=== PATIENT | male | born 1960 | race African-American/Black ===

== ENCOUNTER 2017-07-07 13:01 | Inpatient (IN) | payer OTHER ==
[2017-07-07 14:24] VITALS: BMI 20.9
[2017-07-07] MEDS ORDERED: chlordiazePOXIDE HCL 25 MG CAPSULE PO PRN (16:00)
[2017-07-07] MEDS ORDERED: NICOTINE POLACRILEX 4 MG GUM BUC PRN (16:00)
[2017-07-07] MEDS ORDERED: MAG HYDROX/AL HYDROX/SIMETH 30 ML UNIT-DOSE CUP PO PRN (16:00)
[2017-07-07] MEDS ORDERED: MAGNESIUM HYDROX 2400MG/30ML ORAL SUSPENSION 30 ML CUP PO PRN (16:00)
[2017-07-07] MEDS ORDERED: ACETAMINOPHEN 325 MG TABLET (FP) PO PRN (16:00)
[2017-07-07] MEDS ORDERED: MAGNESIUM CITRATE 300 ML BOTTLE PO PRN (16:00)
[2017-07-07] MEDS ORDERED: MENTHOL/PHENOL 1 EACH UD MM PRN (16:00)
[2017-07-07] MEDS ORDERED: LOPERAMIDE HCL 2 MG CAPSULE PO PRN (16:00)
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
[2017-07-07] MEDS ORDERED: METHADONE HCL 10 MG TABLET (FOR DETOX USE ONLY) PO ONE ×2 (19:00→23:00)
[2017-07-07] MEDS ORDERED: chlordiazePOXIDE HCL 25 MG CAPSULE PO ONE (19:00)
[2017-07-07] MEDS: chlordiazePOXIDE HCL 25 MG CAPSULE PO SCH ×2 (19:27→22:36)
[2017-07-07] MEDS: THIAMINE HCL 100 MG TABLET (FP) PO SCH (22:36)
[2017-07-08] MEDS: chlordiazePOXIDE HCL 25 MG CAPSULE PO SCH ×4 (05:57→23:52)
[2017-07-08 09:46] LABS: HEMATOCRIT 41.8 % (35.4-49); HEMOGLOBIN 13.7 GM/dL (11.7-16.9); MCH 30.9 pg (25.7-33.7); MCHC 32.9 g/dl (32.0-35.9); MEAN PLT VOLUME 8.4 fl (7.5-11.1); PLATELET COUNT 266 K/MM3 (134-434); RBC 4.45 M/mm3 (4.00-5.60); RDW 13.6 % (11.9-15.9)
--- NOTE | 2017-07-08 09:52 | EKG ---
Test Reason : Blood Pressure : / mmHG Vent. Rate : 059 BPM Atrial Rate : 059 BPM P-R Int : 122 ms QRS Dur : 128 ms QT Int : 440 ms P-R-T Axes : 079 -09 000 degrees QTc Int : 435 ms SINUS BRADYCARDIA RIGHT BUNDLE BRANCH BLOCK ABNORMAL ECG NO PREVIOUS ECGS AVAILABLE Confirmed by PAOLO PAREDES MD ([id number]) on 07/08/2017 9:52:12 AM Referred By: Confirmed By:PAOLO PAREDES MD
[2017-07-08 09:54] LABS: ALBUMIN 3.3 g/dl (3.4-5.0); ALK PHOS 105 U/L (45-117); ANION GAP 6 (8-16); BILIRUBIN,TOTAL 0.3 mg/dL (0.2-1.0); BLOOD UREA NITROGEN 12 mg/dL (7-18); CALCIUM 7.9 mg/dL (8.5-10.1); CHLORIDE 109 mmol/L (98-107); CO2 27 mmol/L (21-32); CREATININE 0.9 mg/dL (0.7-1.3); GLUCOSE,RANDOM 121 mg/dL (74-106); POTASSIUM 4.2 mmol/L (3.5-5.1); SGOT/AST 27 U/L (15-37); SGPT/ALT 30 U/L (12-78); SODIUM 142 mmol/L (136-145); TOT PROT 6.8 g/dl (6.4-8.2)
[2017-07-08] MEDS ORDERED: METHADONE HCL 10 MG TABLET (FOR DETOX USE ONLY) PO SCH (10:00)
[2017-07-08] MEDS: PRENATAL VITAMINS W/ FOLIC ACID TABLET (FP) PO SCH (10:41)
[2017-07-08] MEDS: LIDOCAINE 5% TOPICAL PATCH TP SCH (10:41)
[2017-07-08] MEDS: NICOTINE 14 MG/24 HOURS TOPICAL PATCH TD SCH (10:41)
[2017-07-08] MEDS: P-EPHED 60MG/TRIPROLIDI 2.5MG TABLET PO PRN (10:59)
--- NOTE | 2017-07-08 12:22 | PN ---
[facility] CIWA - CIWA Score Nausea/Vomitin-No Nausea/No Vomiting Muscle Tremors: 2 Anxiety: 4-Mod. Anxious/Guarded Agitation: 3 Paroxysmal Sweats: 3 Orientation: 0-Oriented Tacttile Disturbances: 2-Mild Itch/Numbness/Burn Auditory Disturbances: 0-None Visual Disturbances: 3-Moderate Sensitivity Headache: 0-None Present CIWA-Ar Total Score: 17 S COWS - Scale Resting Pulse: 1= [place] 81-100 Sweatin= Chills/Flushing Restless Observation: 1= Difficult to Sit Still Pupil Size: 0= Normal to Room Light Bone or Joint Aches: 2= Severe Diffuse Aches Runny Nose/ Eye Tearin= None GI Upset > 30mins: 1= Stomach Cramp Tremor Observation of Outstretched Hands: 2= Slight Tremor Visible Yawning Observation: 1= 1-2x During Session Anxiety or Irritability: 2=Irritable/Anxious Goose Flesh Skin: 3=Piloerection COWS Score: 14 [facility] Progress Note (SOAP) Subjective: Body Aches, Anxious, Sweating. Objective: PT. A & O X 3, OBSERVED AMBULATING ON UNIT. NO ACUTE DISTRESS. 07/08/17 12:19 Vital Signs Temperature 97.4 F L 07/08/17 09:22 Pulse Rate 85 07/08/17 09:22 Respiratory Rate 20 07/08/17 09:22 Blood Pressure 107/72 07/08/17 09:22 O2 Sat by Pulse Oximetry (%) Laboratory Tests 07/08/17 07/08/17 07/08/17 06:05 06:05 06:05 WBC 6.0 RBC 4.45 Hgb 13.7 Hct 41.8 MCV 94.0 MCH 30.9 MCHC 32.9 RDW 13.6 Plt Count 266 MPV 8.4 Sodium 142 Potassium 4.2 Chloride 109 H Carbon Dioxide 27 Anion Gap 6 L BUN 12 Creatinine 0.9 Creat Clearance w eGFR > 60 Random Glucose 121 H Calcium 7.9 L Total Bilirubin 0.3 AST 27 ALT 30 Alkaline Phosphatase 105 Total Protein 6.8 Albumin 3.3 L RPR Titer Nonreactive LABS NOTED. UA, HIV AB RESULTS PENDING. 07/08/17 12:21 Assessment: 07/08/17 12:20 WITHDRAWAL SYMPTOMS. Plan: CONTINUE DETOX.
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
--- NOTE | 2017-07-08 15:48 | PN ---
[facility] Progress Note Note: Patient reports that he accidentally hit his head (forehead) against the wall near his bed while walking around in his room. Patient denies falling to floor after and he denies LOC after fall. Patient A & O X 3 and able to ambulate unassisted. No bruising, swelling, erythema, bleeding, or unusual discharge noted on patient's head. [facility] Fall Protocol # 1 Implemented. report given to Dr. Geoffrey MD at [facility]. patient to be taken via ambulance to [facility] for further medical evaluation and for CT Scan of head. Sajan Stallworth NP
[2017-07-08] MEDS: LIDOCAINE PATCH REMOVAL MC SCH (23:51)
[2017-07-08] MEDS: THIAMINE HCL 100 MG TABLET (FP) PO SCH (23:52)
[2017-07-09] MEDS: guaiFENesin/D-METHORPHAN HB 10 ML UNIT-DOSE CUPS PO PRN ×2 (00:33→14:35)
[2017-07-09] MEDS: ZIPRASIDONE 20 MG CAPSULE PO SCH ×2 (01:50→22:12)
[2017-07-09] MEDS: chlordiazePOXIDE HCL 25 MG CAPSULE PO SCH ×2 (06:44→10:53)
[2017-07-09] MEDS: LIDOCAINE 5% TOPICAL PATCH TP SCH (10:18)
[2017-07-09] MEDS: NICOTINE 14 MG/24 HOURS TOPICAL PATCH TD SCH (10:18)
[2017-07-09] MEDS: PRENATAL VITAMINS W/ FOLIC ACID TABLET (FP) PO SCH (10:18)
[2017-07-09] MEDS: METHADONE HCL 5 MG TABLET (FOR DETOX USE ONLY) PO SCH (10:18)
[2017-07-09] MEDS: P-EPHED 60MG/TRIPROLIDI 2.5MG TABLET PO PRN (10:20)
[2017-07-09] MEDS: IBUPROFEN 400 MG TABLET (FP) PO PRN ×2 (10:21→23:05)
[2017-07-09 10:23] LABS: URINE APPEARANCE CLEAR; URINE BILIRUBIN NEGATIVE (NEGATIVE); URINE BLOOD NEGATIVE (NEGATIVE); URINE COLOR YELLOW; URINE GLUCOSE (UA) NEGATIVE (NEGATIVE); URINE KETONE NEGATIVE (NEGATIVE); URINE LEUK ESTERASE NEGATIVE (NEGATIVE); URINE NITRITE NEGATIVE (NEGATIVE); URINE PROTEIN NEGATIVE (NEGATIVE)
--- NOTE | 2017-07-09 15:14 | PN ---
[facility] CIWA - CIWA Score Nausea/Vomitin-No Nausea/No Vomiting Muscle Tremors: 3 Anxiety: 4-Mod. Anxious/Guarded Agitation: 4-Moderately Restless Paroxysmal Sweats: 3 Orientation: 2-Disoriented Date<2 days Tacttile Disturbances: 1-Very Mild Itch/Numbness Auditory Disturbances: 0-None Visual Disturbances: 0-None Headache: 0-None Present CIWA-Ar Total Score: 17 [facility] COWS - Scale Resting Pulse: 1= ND 81-100 Sweatin= Chills/Flushing Restless Observation: 1= Difficult to Sit Still Pupil Size: 0= Normal to Room Light Bone or Joint Aches: 2= Severe Diffuse Aches Runny Nose/ Eye Tearin= None GI Upset > 30mins: 0= None Tremor Observation of Outstretched Hands: 2= Slight Tremor Visible Yawning Observation: 1= 1-2x During Session Anxiety or Irritability: 2=Irritable/Anxious Goose Flesh Skin: 3=Piloerection COWS Score: 13 S Progress Note (SOAP) Subjective: Body Aches, Anxious, Tremors, Sweating. Objective: PT. A & O X 2 (UNCERTAIN ABOUT DAY / DATE). PT. OBSERVED AMBULATING ON UNIT. NO ACUTE DISTRESS. 07/09/17 15:16 Vital Signs Temperature 97.6 F 07/09/17 13:55 Pulse Rate 82 07/09/17 13:55 Respiratory Rate 18 07/09/17 13:55 Blood Pressure 117/77 07/09/17 13:55 O2 Sat by Pulse Oximetry (%) Laboratory Tests 07/08/17 07/08/17 07/08/17 06:05 06:05 06:05 WBC 6.0 RBC 4.45 Hgb 13.7 Hct 41.8 MCV 94.0 MCH 30.9 MCHC 32.9 RDW 13.6 Plt Count 266 MPV 8.4 Sodium 142 Potassium 4.2 Chloride 109 H Carbon Dioxide 27 Anion Gap 6 L BUN 12 Creatinine 0.9 Creat Clearance w eGFR > 60 Random Glucose 121 H Calcium 7.9 L Total Bilirubin 0.3 AST 27 ALT 30 Alkaline Phosphatase 105 Total Protein 6.8 Albumin 3.3 L Urine Color Urine Appearance Urine pH Ur Specific [place] Urine Protein Urine Glucose (UA) Urine Ketones Urine Blood Urine Nitrite Urine Bilirubin Urine Urobilinogen Ur Leukocyte Esterase RPR Titer Nonreactive HIV 1&2 Antibody Screen HIV P24 Antigen 07/08/17 07/09/17 12:00 07:37 WBC RBC Hgb Hct MCV MCH MCHC RDW Plt Count MPV Sodium Potassium Chloride Carbon Dioxide Anion Gap BUN Creatinine Creat Clearance w eGFR Random Glucose Calcium Total Bilirubin AST ALT Alkaline Phosphatase Total Protein Albumin Urine Color Yellow Urine Appearance Clear Urine pH 6.0 Ur Specific [place] 1.023 Urine Protein Negative Urine Glucose (UA) Negative Urine Ketones Negative Urine Blood Negative Urine Nitrite Negative Urine Bilirubin Negative Urine Urobilinogen 2.0 Ur Leukocyte Esterase Negative RPR Titer HIV 1&2 Antibody Screen Negative HIV P24 Antigen Negative LABS NOTED. Assessment: 07/09/17 15:17 WITHDRAWAL SYMPTOMS. Plan: CONTINUE DETOX.
[2017-07-09] MEDS: chlordiazePOXIDE 5 MG CAPSULE PO SCH ×2 (17:43→22:12)
[2017-07-09] MEDS: LIDOCAINE PATCH REMOVAL MC SCH (22:12)
[2017-07-09] MEDS: THIAMINE HCL 100 MG TABLET (FP) PO SCH (22:12)
[2017-07-10] MEDS: chlordiazePOXIDE 5 MG CAPSULE PO SCH ×2 (06:28→10:12)
[2017-07-10] MEDS: P-EPHED 60MG/TRIPROLIDI 2.5MG TABLET PO PRN (08:36)
[2017-07-10] MEDS: NICOTINE 14 MG/24 HOURS TOPICAL PATCH TD SCH (10:12)
[2017-07-10] MEDS: LIDOCAINE 5% TOPICAL PATCH TP SCH (10:12)
[2017-07-10] MEDS: PRENATAL VITAMINS W/ FOLIC ACID TABLET (FP) PO SCH (10:12)
[2017-07-10] MEDS: METHADONE HCL 5 MG TABLET (FOR DETOX USE ONLY) PO SCH (10:12)
--- NOTE | 2017-07-10 15:59 | PN ---
[facility] Progress Note (SOAP) Subjective: Sweating, anxious, nausea Objective: 07/10/17 15:57 Last Vital Signs Temp Pulse Resp BP Pulse Ox 97.4 F L 80 18 111/73 07/10/17 13:35 07/10/17 13:35 07/10/17 13:35 07/10/17 13:35 Laboratory Tests 07/08/17 07/08/17 07/08/17 06:05 06:05 06:05 WBC 6.0 RBC 4.45 Hgb 13.7 Hct 41.8 MCV 94.0 MCH 30.9 MCHC 32.9 RDW 13.6 Plt Count 266 MPV 8.4 Sodium 142 Potassium 4.2 Chloride 109 H Carbon Dioxide 27 Anion Gap 6 L BUN 12 Creatinine 0.9 Creat Clearance w eGFR > 60 Random Glucose 121 H Calcium 7.9 L Total Bilirubin 0.3 AST 27 ALT 30 Alkaline Phosphatase 105 Total Protein 6.8 Albumin 3.3 L Urine Color Urine Appearance Urine pH Ur Specific [place] Urine Protein Urine Glucose (UA) Urine Ketones Urine Blood Urine Nitrite Urine Bilirubin Urine Urobilinogen Ur Leukocyte Esterase RPR Titer Nonreactive HIV 1&2 Antibody Screen HIV P24 Antigen 07/08/17 07/09/17 12:00 07:37 WBC RBC Hgb Hct MCV MCH MCHC RDW Plt Count MPV Sodium Potassium Chloride Carbon Dioxide Anion Gap BUN Creatinine Creat Clearance w eGFR Random Glucose Calcium Total Bilirubin AST ALT Alkaline Phosphatase Total Protein Albumin Urine Color Yellow Urine Appearance Clear Urine pH 6.0 Ur Specific [place] 1.023 Urine Protein Negative Urine Glucose (UA) Negative Urine Ketones Negative Urine Blood Negative Urine Nitrite Negative Urine Bilirubin Negative Urine Urobilinogen 2.0 Ur Leukocyte Esterase Negative RPR Titer HIV 1&2 Antibody Screen Negative HIV P24 Antigen Negative Labs noted Assessment: 07/10/17 15:58 Withdrawal symptoms Plan: Continue detox Encouraged to drink lots of water for hydration
[2017-07-10] MEDS: chlordiazePOXIDE HCL 10 MG CAPSULE PO SCH ×2 (17:09→22:21)
[2017-07-10] MEDS: ZIPRASIDONE 20 MG CAPSULE PO SCH (22:21)
[2017-07-10] MEDS: THIAMINE HCL 100 MG TABLET (FP) PO SCH (22:21)
[2017-07-10] MEDS: LIDOCAINE PATCH REMOVAL MC SCH (22:21)
[2017-07-11] MEDS: chlordiazePOXIDE HCL 10 MG CAPSULE PO SCH ×2 (05:45→10:30)
[2017-07-11] MEDS: PRENATAL VITAMINS W/ FOLIC ACID TABLET (FP) PO SCH (09:13)
[2017-07-11] MEDS: NICOTINE 14 MG/24 HOURS TOPICAL PATCH TD SCH (09:13)
[2017-07-11] MEDS: LIDOCAINE 5% TOPICAL PATCH TP SCH (09:13)
[2017-07-11] MEDS ORDERED: METHADONE HCL 10 MG TABLET (FOR DETOX USE ONLY) PO SCH (10:00)
[2017-07-11] MEDS: IBUPROFEN 400 MG TABLET (FP) PO PRN (13:50)
--- NOTE | 2017-07-11 14:04 | PN ---
[facility] Progress Note (SOAP) Subjective: DECREASED ANXIETY,SWEATS. Objective: 07/11/17 15:32 Laboratory Last Values WBC 6.0 K/mm3 (4.0-10.0) 07/08/17 06:05 RBC 4.45 M/mm3 (4.00-5.60) 07/08/17 06:05 Hgb 13.7 GM/dL (11.7-16.9) 07/08/17 06:05 Hct 41.8 % (35.4-49) 07/08/17 06:05 MCV 94.0 fl (80-96) 07/08/17 06:05 MCH 30.9 pg (25.7-33.7) 07/08/17 06:05 MCHC 32.9 g/dl (32.0-35.9) 07/08/17 06:05 RDW 13.6 % (11.9-15.9) 07/08/17 06:05 Plt Count 266 K/MM3 (134-434) 07/08/17 06:05 MPV 8.4 fl (7.5-11.1) 07/08/17 06:05 Sodium 142 mmol/L (136-145) 07/08/17 06:05 Potassium 4.2 mmol/L (3.5-5.1) 07/08/17 06:05 Chloride 109 mmol/L (98-107) H 07/08/17 06:05 Carbon Dioxide 27 mmol/L (21-32) 07/08/17 06:05 Anion Gap 6 (8-16) L 07/08/17 06:05 BUN 12 mg/dL (7-18) 07/08/17 06:05 Creatinine 0.9 mg/dL (0.7-1.3) 07/08/17 06:05 Creat Clearance w eGFR > 60 (>60) 07/08/17 06:05 Random Glucose 121 mg/dL (74-106) H 07/08/17 06:05 Calcium 7.9 mg/dL (8.5-10.1) L 07/08/17 06:05 Total Bilirubin 0.3 mg/dL (0.2-1.0) 07/08/17 06:05 AST 27 U/L (15-37) 07/08/17 06:05 ALT 30 U/L (12-78) 07/08/17 06:05 Alkaline Phosphatase 105 U/L (45-117) 07/08/17 06:05 Total Protein 6.8 g/dl (6.4-8.2) 07/08/17 06:05 Albumin 3.3 g/dl (3.4-5.0) L 07/08/17 06:05 Urine Color Yellow 07/09/17 07:37 Urine Appearance Clear 07/09/17 07:37 Urine pH 6.0 (5.0-8.0) 07/09/17 07:37 Ur Specific [place] 1.023 (1.001-1.035) 07/09/17 07:37 Urine Protein Negative (NEGATIVE) 07/09/17 07:37 Urine Glucose (UA) Negative (NEGATIVE) 07/09/17 07:37 Urine Ketones Negative (NEGATIVE) 07/09/17 07:37 Urine Blood Negative (NEGATIVE) 07/09/17 07:37 Urine Nitrite Negative (NEGATIVE) 07/09/17 07:37 Urine Bilirubin Negative (NEGATIVE) 07/09/17 07:37 Urine Urobilinogen 2.0 mg/dL (0.2-1.0) 07/09/17 07:37 Ur Leukocyte Esterase Negative (NEGATIVE) 07/09/17 07:37 RPR Titer Nonreactive (NONREACTIVE) 07/08/17 06:05 HIV 1&2 Antibody Screen Negative 07/08/17 12:00 HIV P24 Antigen Negative 07/08/17 12:00 Assessment: 07/11/17 15:32 DECREASED WITHDRAWAL SX Plan: CONTINUE MONITORING PT
[2017-07-11] MEDS: guaiFENesin/D-METHORPHAN HB 10 ML UNIT-DOSE CUPS PO PRN (20:18)
[2017-07-11] MEDS: ZIPRASIDONE 20 MG CAPSULE PO SCH (22:17)
[2017-07-11] MEDS: LIDOCAINE PATCH REMOVAL MC SCH (22:17)
[2017-07-11] MEDS: THIAMINE HCL 100 MG TABLET (FP) PO SCH (22:17)
[2017-07-12] MEDS ORDERED: METHADONE HCL 5 MG TABLET (FOR DETOX USE ONLY) PO SCH (06:00)
[2017-07-12 09:54] VITALS: BP 113/75; PULSE 80; TEMP 97.7
[2017-07-12] MEDS: NICOTINE 14 MG/24 HOURS TOPICAL PATCH TD SCH (10:12)
[2017-07-12] MEDS: LIDOCAINE 5% TOPICAL PATCH TP SCH (10:12)
[2017-07-12] MEDS: PRENATAL VITAMINS W/ FOLIC ACID TABLET (FP) PO SCH (10:12)
--- NOTE | 2017-07-12 11:41 | DS ---
[facility] Detox Discharge Summary Admission Date: 07/07/17 Discharge Date: 07/12/17 - History Present History: Alcohol Dependence, Cocaine Dependence, Opioid Dependence Additional Comments: DETOX COMPLETED. ALERT O X 3. F/U WITH AFTERCARE REFERRAL DIRECTED. Pertinent Past History: HX HEAD INJURY - Physical Exam Results Vital Signs: Vital Signs Temperature 97.7 F 07/12/17 09:53 Pulse Rate 80 07/12/17 09:53 Respiratory Rate 17 07/12/17 09:53 Blood Pressure 113/75 07/12/17 09:53 O2 Sat by Pulse Oximetry (%) Pertinent Admission Physical Exam Findings: WITHDRAWAL SX Laboratory Last Values WBC 6.0 K/mm3 (4.0-10.0) 07/08/17 06:05 RBC 4.45 M/mm3 (4.00-5.60) 07/08/17 06:05 Hgb 13.7 GM/dL (11.7-16.9) 07/08/17 06:05 Hct 41.8 % (35.4-49) 07/08/17 06:05 MCV 94.0 fl (80-96) 07/08/17 06:05 MCH 30.9 pg (25.7-33.7) 07/08/17 06:05 MCHC 32.9 g/dl (32.0-35.9) 07/08/17 06:05 RDW 13.6 % (11.9-15.9) 07/08/17 06:05 Plt Count 266 K/MM3 (134-434) 07/08/17 06:05 MPV 8.4 fl (7.5-11.1) 07/08/17 06:05 Sodium 142 mmol/L (136-145) 07/08/17 06:05 Potassium 4.2 mmol/L (3.5-5.1) 07/08/17 06:05 Chloride 109 mmol/L (98-107) H 07/08/17 06:05 Carbon Dioxide 27 mmol/L (21-32) 07/08/17 06:05 Anion Gap 6 (8-16) L 07/08/17 06:05 BUN 12 mg/dL (7-18) 07/08/17 06:05 Creatinine 0.9 mg/dL (0.7-1.3) 07/08/17 06:05 Creat Clearance w eGFR > 60 (>60) 07/08/17 06:05 Random Glucose 121 mg/dL (74-106) H 07/08/17 06:05 Calcium 7.9 mg/dL (8.5-10.1) L 07/08/17 06:05 Total Bilirubin 0.3 mg/dL (0.2-1.0) 07/08/17 06:05 AST 27 U/L (15-37) 07/08/17 06:05 ALT 30 U/L (12-78) 07/08/17 06:05 Alkaline Phosphatase 105 U/L (45-117) 07/08/17 06:05 Total Protein 6.8 g/dl (6.4-8.2) 07/08/17 06:05 Albumin 3.3 g/dl (3.4-5.0) L 07/08/17 06:05 Urine Color Yellow 07/09/17 07:37 Urine Appearance Clear 07/09/17 07:37 Urine pH 6.0 (5.0-8.0) 07/09/17 07:37 Ur Specific [place] 1.023 (1.001-1.035) 07/09/17 07:37 Urine Protein Negative (NEGATIVE) 07/09/17 07:37 Urine Glucose (UA) Negative (NEGATIVE) 07/09/17 07:37 Urine Ketones Negative (NEGATIVE) 07/09/17 07:37 Urine Blood Negative (NEGATIVE) 07/09/17 07:37 Urine Nitrite Negative (NEGATIVE) 07/09/17 07:37 Urine Bilirubin Negative (NEGATIVE) 07/09/17 07:37 Urine Urobilinogen 2.0 mg/dL (0.2-1.0) 07/09/17 07:37 Ur Leukocyte Esterase Negative (NEGATIVE) 07/09/17 07:37 RPR Titer Nonreactive (NONREACTIVE) 07/08/17 06:05 HIV 1&2 Antibody Screen Negative 07/08/17 12:00 HIV P24 Antigen Negative 07/08/17 12:00 - Treatment Hospital Course: Detox Protocol Followed, Detoxed Safely, Responded well, Discharged Condition Good - Medication Discharge Medications: Ambulatory Orders Unobtainable [Unobtainable] 07/07/17 - Diagnosis (1) Alcohol dependence with withdrawal, uncomplicated Current Visit: Yes Status: Acute (2) Nicotine dependence Current Visit: Yes Status: Acute Qualifiers: Nicotine product type: cigarettes Substance use status: in withdrawal Qualified Code(s): F17.213 - Nicotine dependence, cigarettes, with withdrawal (3) Opioid dependence with withdrawal Current Visit: Yes Status: Acute (4) Cocaine dependence, uncomplicated Current Visit: Yes Status: Acute (5) Dehydration Current Visit: Yes Status: Acute - AMA Did Patient Leave Against Medical Advice: No
[2017-07-12] MEDS: guaiFENesin/D-METHORPHAN HB 10 ML UNIT-DOSE CUPS PO PRN (14:37)
== END 2017-07-12 14:50 | disposition other institution (70) | DRG 773 ==
LOC: YASAS 13:01 → Y3N 18:43
PROVIDERS: ADMIT Internal Medicine; ATTEND Internal Medicine
PROC: HZ2ZZZZ Detoxification Services for Substance Abuse Treatment (ICD-10-PCS; principal; 2017-07-07)
DX: F11.23 Opioid dependence with withdrawal (principal); F10.230 Alcohol dependence with withdrawal, uncomplicated; F14.20 Cocaine dependence, uncomplicated; F12.20 Cannabis dependence, uncomplicated; F17.213 Nicotine dependence, cigarettes, with withdrawal; F31.9 Bipolar disorder, unspecified; F19.24 Other psychoactive substance dependence with psychoactive substance-induced mood disorder; E86.0 Dehydration; E46 Unspecified protein-calorie malnutrition; R76.11 Nonspecific reaction to tuberculin skin test without active tuberculosis; S09.90XA Unspecified injury of head, initial encounter; W22.01XA Walked into wall, initial encounter; Y93.89 Activity, other specified; Y92.230 Patient room in hospital as the place of occurrence of the external cause
CPT/HCPCS: 36415; 71020-TC; 80053; 81003; 85027; 86593; 87389; 93005; 93010

== ENCOUNTER 2017-07-08 16:48 | Emergency (ER) | payer OTHER ==
--- NOTE | 2017-07-08 17:01 | PDOC ---
History of Present Illness - General History Source: Patient Exam Limitations: No Limitations - History of Present Illness Initial Comments: 07/08/17 20:41 The patient is a 56 year old male with a past medical history of drug abuse BIBA from [facility] complaining of headache. The patient states that he hit his head against the wall while walking to the bathroom. He denies any LOC after the fall. On examination the patient is drowsy. <Javid Green - Last Filed: 07/08/17 20:41> <Tom Moncada - Last Filed: 07/08/17 20:48> - General Chief Complaint: Injury Stated Complaint: FALL Time Seen by Provider: 07/08/17 17:00 Past History <Javid Green - Last Filed: 07/08/17 20:41> - Past Medical History Asthma: No Cardiac Disorders: No COPD: No Diabetes: No GI Disorders: No Disorders: No HTN: No Kidney Stones: No Seizures: No - Surgical History Abdominal Surgery: No Appendectomy: No Cardiac Surgery: No Cholecystectomy: No Lung Surgery: No Neurologic Surgery: No Orthopedic Surgery: Yes - Reproductive History Testicular Surgery: No - Suicide/Smoking/Psychosocial Hx Smoking History: Current every day smoker Have you smoked in the past 12 months: Yes Number of Cigarettes Smoked Daily: 20 'Breaking Loose' booklet given: 07/07/17 Hx Substance Use Treatment: Yes <Tom Moncada - Last Filed: 07/08/17 20:48> - Past Medical History Allergies/Adverse Reactions: Allergies Allergy/AdvReac Type Severity Reaction Status Date / Time No Known Allergies Allergy Verified 07/08/17 17:13 Home Medications: Ambulatory Orders Unobtainable [Unobtainable] 07/07/17 Review of Systems - Review of Systems Able to Perform ROS?: Yes Comments:: 07/08/17 20:41 GENERAL/CONSTITUTIONAL: No fever or chills. No weakness. HEAD, EYES, EARS, NOSE AND THROAT: No change in vision. No ear pain or discharge. No sore throat. CARDIOVASCULAR: No chest pain or shortness of breath. RESPIRATORY: No cough, wheezing, or hemoptysis. GASTROINTESTINAL: No nausea, vomiting, diarrhea or constipation. GENITOURINARY: No dysuria, frequency, or change in urination. MUSCULOSKELETAL: No joint or muscle swelling or pain. No neck or back pain. SKIN: No rash NEUROLOGIC: (+) Headache. No vertigo, loss of consciousness, or change in strength/sensation. ENDOCRINE: No increased thirst. No abnormal weight change. HEMATOLOGIC/LYMPHATIC: No anemia, easy bleeding, or history of blood clots. ALLERGIC/IMMUNOLOGIC: No hives or skin allergy. <Javid Green - Last Filed: 07/08/17 20:41> *Physical Exam - Vital Signs Last Vital Signs Temp Pulse Resp BP Pulse Ox 97.9 F 70 18 117/90 95 07/08/17 16:48 07/08/17 16:48 07/08/17 16:48 07/08/17 16:48 07/08/17 16:48 - Physical Exam Comments: 07/08/17 20:42 GENERAL: Obtunded. In no acute distress HEAD: No signs of trauma EYES: PERRLA, EOMI, sclera anicteric, conjunctiva clear ENT: Auricles normal inspection, hearing grossly normal, nares patent, oropharynx clear without exudates. Moist mucosa NECK: Normal ROM, supple, no lymphadenopathy, JVD, or masses LUNGS: Breath sounds equal, clear to auscultation bilaterally. No wheezes, and no crackles HEART: Regular rate and rhythm, normal S1 and S2, no murmurs, rubs or gallops ABDOMEN: Soft, nontender, normoactive bowel sounds. No guarding, no rebound. No masses EXTREMITIES: Normal range of motion, no edema. No clubbing or cyanosis. No cords, erythema, or tenderness NEUROLOGICAL: Cranial nerves II through XII grossly intact. Normal speech, normal gait SKIN: Warm, Dry, normal turgor, no rashes or lesions noted. <Javid Green - Last Filed: 07/08/17 20:41> Medical Decision Making - Medical Decision Making 07/08/17 18:28 Normal sinus rhythm with sinus arrhythmia. Possible left atrial enlargement. Right bundle branch block. Abnormal ECG. <Javid Green - Last Filed: 07/08/17 20:41> *DC/Admit/Observation/Transfer - Attestations Scribe Attestion: 07/08/17 18:26 Documentation prepared by Javid Green, acting as medical aide for Tom Moncada DO. <Javid Green - Last Filed: 07/08/17 20:41> - Discharge Dispostion Admit: No - Attestations Physician Attestion: 07/08/17 17:00 I, Dr. Tom Moncada, attest that this document has been prepared under my direction and personally reviewed by me in its entirety. I further attest, that it accurately reflects all work, treatment, procedures and medical decision -making performed by me. <Tom Moncada - Last Filed: 07/08/17 20:48> Diagnosis at time of Disposition: Head injury Qualifiers: Encounter type: initial encounter Qualified Code(s): S09.90XA - Unspecified injury of head, initial encounter - Discharge Dispostion Disposition: HOME Condition at time of disposition: Unchanged/Unknown - Referrals Referrals: Thierry Goodwin MD [Primary Care Provider] - - Patient Instructions Printed Discharge Instructions: DI for Closed Head Injury Additional Instructions: Go back to [facility] for completion of detox admission - Post Discharge Activity
[2017-07-08 17:16] VITALS: BP 117/90; PULSE 70; TEMP 97.9; BMI 21.7
--- NOTE | 2017-07-13 16:53 | EKG ---
Test Reason : Blood Pressure : / mmHG Vent. Rate : 068 BPM Atrial Rate : 068 BPM P-R Int : 116 ms QRS Dur : 114 ms QT Int : 430 ms P-R-T Axes : 072 -25 016 degrees QTc Int : 457 ms POOR DATA QUALITY, INTERPRETATION MAY BE ADVERSELY AFFECTED NORMAL SINUS RHYTHM WITH SINUS ARRHYTHMIA POSSIBLE LEFT ATRIAL ENLARGEMENT RIGHT BUNDLE BRANCH BLOCK ABNORMAL ECG WHEN COMPARED WITH ECG OF 07-JUL-2017 20:36, NO SIGNIFICANT CHANGE WAS FOUND Confirmed by DEXTER HARRIS MD ([id number]) on 07/13/2017 4:52:54 PM Referred By: Confirmed By:DEXTER HARRIS MD
== END 2017-07-08 23:05 | disposition home or self-care (01) ==
LOC: JER 16:48
DX: S09.8XXA Other specified injuries of head, initial encounter (principal); W22.01XA Walked into wall, initial encounter; Y93.01 Activity, walking, marching and hiking; Y92.230 Patient room in hospital as the place of occurrence of the external cause; Y99.8 Other external cause status
CPT/HCPCS: 70450-TC; 93005; 93010; 99282-25

== ENCOUNTER 2017-07-12 15:25 | Inpatient (IN) | payer OTHER ==
[2017-07-12 15:41] VITALS: BMI 20.9
[2017-07-12] MEDS ORDERED: MENTHOL/PHENOL 1 EACH UD MM PRN (15:56)
[2017-07-12] MEDS ORDERED: NICOTINE POLACRILEX 2 MG GUM BUC PRN (15:56)
[2017-07-12] MEDS ORDERED: MAG HYDROX/AL HYDROX/SIMETH 30 ML UNIT-DOSE CUP PO PRN (15:56)
[2017-07-12] MEDS ORDERED: LOPERAMIDE HCL 2 MG CAPSULE PO PRN (15:56)
[2017-07-12] MEDS ORDERED: P-EPHED 60MG/TRIPROLIDI 2.5MG TABLET PO PRN (15:56)
[2017-07-12] MEDS ORDERED: MAGNESIUM CITRATE 300 ML BOTTLE PO PRN (15:56)
[2017-07-12] MEDS ORDERED: MAGNESIUM HYDROX 2400MG/30ML ORAL SUSPENSION 30 ML CUP PO PRN (15:56)
--- NOTE | 2017-07-12 15:56 | HP ---
[facility]IK[facility] Rehab Assess/Revision - Admission History Admitted to Rehab from: [facility] Date of Admission to Rehab: 07/12/17 - Vital signs Vital Signs: Vital Signs Period Temp Pulse Resp BP Sys/Garcia Pulse Ox Last 24 Hr 98 F 80 20 127/76 - Findings Detox History & Physical reviewed: Yes Concur with findings: Yes Comments/Additional Findings: for rehab as protocol Inpatient Rehab Admission - Initial Determination Are CD services needed?: Yes Free of communicable disease: Yes Not in need of hospitalization: Yes - Rehab Admission Criteria Previous failed treatment: Yes Poor recovery environment: Yes Comorbidities: Yes Patient is meeting Inpatient Rehab admission criteria:: Yes
[2017-07-12] MEDS: ACETAMINOPHEN 325 MG TABLET (FP) PO PRN ×2 (17:00→21:45)
[2017-07-12] MEDS: THIAMINE HCL 100 MG TABLET (FP) PO SCH (21:45)
[2017-07-12] MEDS: MIRTAZAPINE 15 MG TABLET (FP) PO SCH (21:45)
[2017-07-13] MEDS: ACETAMINOPHEN 325 MG TABLET (FP) PO PRN ×2 (03:16→07:59)
[2017-07-13] MEDS: guaiFENesin/D-METHORPHAN HB 10 ML UNIT-DOSE CUPS PO PRN ×2 (03:16→10:34)
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
[2017-07-13] MEDS ORDERED: ZIPRASIDONE 40 MG CAPSULE (FP) PO SCH (10:00)
[2017-07-13] MEDS: NICOTINE 21 MG/24 HOURS TOPICAL PATCH TD SCH (10:12)
[2017-07-13] MEDS: PRENATAL VITAMINS W/ FOLIC ACID TABLET (FP) PO SCH (10:12)
[2017-07-13] MEDS: IBUPROFEN 400 MG TABLET (FP) PO PRN (10:13)
[2017-07-13] MEDS: ZIPRASIDONE 40 MG CAPSULE (FP) PO SCH (17:05)
[2017-07-13] MEDS: THIAMINE HCL 100 MG TABLET (FP) PO SCH (21:52)
[2017-07-13] MEDS: MIRTAZAPINE 15 MG TABLET (FP) PO SCH (21:52)
[2017-07-14] MEDS: ZIPRASIDONE 40 MG CAPSULE (FP) PO SCH ×2 (07:22→17:21)
[2017-07-14] MEDS: PRENATAL VITAMINS W/ FOLIC ACID TABLET (FP) PO SCH (10:24)
[2017-07-14] MEDS: NICOTINE 21 MG/24 HOURS TOPICAL PATCH TD SCH (10:24)
[2017-07-14] MEDS: IBUPROFEN 400 MG TABLET (FP) PO PRN (11:18)
[2017-07-14] MEDS: ACETAMINOPHEN 325 MG TABLET (FP) PO PRN (19:44)
[2017-07-14] MEDS: MIRTAZAPINE 15 MG TABLET (FP) PO SCH (21:26)
[2017-07-14] MEDS: THIAMINE HCL 100 MG TABLET (FP) PO SCH (21:26)
[2017-07-15] MEDS: ZIPRASIDONE 40 MG CAPSULE (FP) PO SCH ×2 (07:17→17:02)
[2017-07-15] MEDS: ACETAMINOPHEN 325 MG TABLET (FP) PO PRN (07:45)
[2017-07-15] MEDS: NICOTINE 21 MG/24 HOURS TOPICAL PATCH TD SCH (09:29)
[2017-07-15] MEDS: PRENATAL VITAMINS W/ FOLIC ACID TABLET (FP) PO SCH (09:29)
[2017-07-15] MEDS: IBUPROFEN 400 MG TABLET (FP) PO PRN (09:29)
[2017-07-15] MEDS: CYCLOBENZAPRINE HCL 5 MG TABLET PO SCH ×2 (14:49→21:50)
[2017-07-15] MEDS: guaiFENesin/D-METHORPHAN HB 10 ML UNIT-DOSE CUPS PO PRN (21:49)
[2017-07-15] MEDS: THIAMINE HCL 100 MG TABLET (FP) PO SCH (21:50)
[2017-07-15] MEDS: MIRTAZAPINE 15 MG TABLET (FP) PO SCH (21:50)
[2017-07-16] MEDS: CYCLOBENZAPRINE HCL 5 MG TABLET PO SCH ×3 (06:21→21:10)
[2017-07-16] MEDS: ACETAMINOPHEN 325 MG TABLET (FP) PO PRN ×2 (06:22→19:19)
[2017-07-16] MEDS: ZIPRASIDONE 40 MG CAPSULE (FP) PO SCH ×2 (07:15→16:52)
[2017-07-16] MEDS: PRENATAL VITAMINS W/ FOLIC ACID TABLET (FP) PO SCH (10:17)
[2017-07-16] MEDS: NICOTINE 21 MG/24 HOURS TOPICAL PATCH TD SCH (10:17)
[2017-07-16] MEDS: MIRTAZAPINE 15 MG TABLET (FP) PO SCH (21:10)
[2017-07-16] MEDS: guaiFENesin/D-METHORPHAN HB 10 ML UNIT-DOSE CUPS PO PRN (21:10)
[2017-07-16] MEDS: THIAMINE HCL 100 MG TABLET (FP) PO SCH (21:10)
[2017-07-17] MEDS: CYCLOBENZAPRINE HCL 5 MG TABLET PO SCH ×3 (06:04→21:15)
[2017-07-17] MEDS: ACETAMINOPHEN 325 MG TABLET (FP) PO PRN ×2 (06:05→21:15)
[2017-07-17] MEDS: ZIPRASIDONE 40 MG CAPSULE (FP) PO SCH ×2 (07:34→16:58)
[2017-07-17] MEDS: PRENATAL VITAMINS W/ FOLIC ACID TABLET (FP) PO SCH (10:09)
[2017-07-17] MEDS: NICOTINE 21 MG/24 HOURS TOPICAL PATCH TD SCH (10:09)
[2017-07-17] MEDS: THIAMINE HCL 100 MG TABLET (FP) PO SCH (21:14)
[2017-07-17] MEDS: guaiFENesin/D-METHORPHAN HB 10 ML UNIT-DOSE CUPS PO PRN (21:14)
[2017-07-17] MEDS: MIRTAZAPINE 15 MG TABLET (FP) PO SCH (21:15)
[2017-07-18] MEDS: CYCLOBENZAPRINE HCL 5 MG TABLET PO SCH ×3 (05:59→21:08)
[2017-07-18] MEDS: ZIPRASIDONE 40 MG CAPSULE (FP) PO SCH ×2 (07:42→16:53)
[2017-07-18] MEDS: NICOTINE 21 MG/24 HOURS TOPICAL PATCH TD SCH (10:25)
[2017-07-18] MEDS: PRENATAL VITAMINS W/ FOLIC ACID TABLET (FP) PO SCH (10:25)
[2017-07-18] MEDS: IBUPROFEN 400 MG TABLET (FP) PO PRN (13:38)
[2017-07-18] MEDS: LIDOCAINE 5% TOPICAL PATCH TP SCH (19:08)
[2017-07-18] MEDS: THIAMINE HCL 100 MG TABLET (FP) PO SCH (21:08)
[2017-07-18] MEDS: MIRTAZAPINE 15 MG TABLET (FP) PO SCH (21:08)
[2017-07-18] MEDS: LIDOCAINE PATCH REMOVAL MC SCH (22:00)
[2017-07-19] MEDS: CYCLOBENZAPRINE HCL 5 MG TABLET PO SCH ×3 (06:06→21:13)
[2017-07-19] MEDS: ZIPRASIDONE 40 MG CAPSULE (FP) PO SCH ×2 (07:16→17:55)
[2017-07-19] MEDS: LIDOCAINE 5% TOPICAL PATCH TP SCH (10:30)
[2017-07-19] MEDS: PRENATAL VITAMINS W/ FOLIC ACID TABLET (FP) PO SCH (10:30)
[2017-07-19] MEDS: NICOTINE 21 MG/24 HOURS TOPICAL PATCH TD SCH (10:30)
[2017-07-19] MEDS: MIRTAZAPINE 15 MG TABLET (FP) PO SCH (21:13)
[2017-07-19] MEDS: THIAMINE HCL 100 MG TABLET (FP) PO SCH (21:13)
[2017-07-19] MEDS: LIDOCAINE PATCH REMOVAL MC SCH (21:14)
[2017-07-19] MEDS: ACETAMINOPHEN 325 MG TABLET (FP) PO PRN (21:15)
[2017-07-20] MEDS: ACETAMINOPHEN 325 MG TABLET (FP) PO PRN ×2 (06:20→21:12)
[2017-07-20] MEDS: CYCLOBENZAPRINE HCL 5 MG TABLET PO SCH ×3 (06:20→21:11)
[2017-07-20] MEDS: ZIPRASIDONE 40 MG CAPSULE (FP) PO SCH ×2 (07:27→16:52)
[2017-07-20] MEDS ORDERED: PT OWN MED DRAWER 7, Y5N ONE (10:12)
[2017-07-20] MEDS: PRENATAL VITAMINS W/ FOLIC ACID TABLET (FP) PO SCH (10:13)
[2017-07-20] MEDS: LIDOCAINE 5% TOPICAL PATCH TP SCH (10:13)
[2017-07-20] MEDS: NICOTINE 21 MG/24 HOURS TOPICAL PATCH TD SCH (10:13)
--- NOTE | 2017-07-20 11:52 | PN ---
Psychiatric Progress Note Vital Signs: Vital Signs Period Temp Pulse Resp BP Sys/Garcia Pulse Ox Last 24 Hr 98.2 F 92 18-18 115/71 Date of Session: 07/20/17 Chief Complaint:: Insomnia HPI: Patient addressing Alcohol, Opoid and Cocaine Dependence comorbid with Nicotine Dependence and Schizoaffective Disorder ROS: Start Belsomra 10 mg po HS prn for insomnia Current Medications: Active Medications Generic Name Dose Route Start Last Admin Trade Name Freq PRN Reason Stop Dose Admin Acetaminophen 650 mg 07/12/17 15:56 07/20/17 06:20 Tylenol - PO 650 mg Q4H PRN Administration FEVER OR PAIN Al Hydroxide/Mg Hydroxide 30 ml 07/12/17 15:56 Mylanta Oral Suspension - PO Q6H PRN DYSPEPSIA Cyclobenzaprine HCl 5 mg 07/15/17 14:00 07/20/17 06:20 Cyclobenzaprine Hcl PO 5 mg TID BETTY Administration Eucalyptus/Menthol/Phenol/Sorbitol 1 each 07/12/17 15:56 Cepastat Lozenge - MM Q4H PRN SORE THROAT Guaifenesin 10 ml 07/12/17 15:56 07/17/17 21:14 Robitussin Dm - PO 10 ml Q6H PRN Administration COUGH Hydroxyzine Pamoate 50 mg 07/12/17 15:56 Vistaril - PO Q4H PRN AGITATION Ibuprofen 400 mg 07/12/17 15:56 07/18/17 13:38 Motrin - PO 400 mg Q6H PRN Administration PAIN Lidocaine 1 patch 07/18/17 17:15 07/20/17 10:13 Lidoderm Patch - TP 1 patch DAILY BETTY Administration Loperamide HCl 4 mg 07/12/17 15:56 Imodium - PO Q6H PRN DIARRHEA Magnesium Citrate 300 ml 07/12/17 15:56 Citroma - PO Q48H PRN CONSTIPATION Magnesium Hydroxide 30 ml 07/12/17 15:56 Milk Of Magnesia - PO DAILY PRN CONSTIPATION Mirtazapine 45 mg 07/12/17 22:00 07/19/17 21:13 Remeron - PO 45 mg HS BETTY Administration Miscellaneous 1 each 07/18/17 22:00 07/19/17 21:14 Lidoderm Patch Removal MC 1 each DAILY@2200 BETTY Administration Nicotine 21 mg 07/13/17 10:00 07/20/17 10:13 Nicoderm Patch - TD 21 mg DAILY BETTY Administration Nicotine Polacrilex 2 mg 07/12/17 15:56 Nicorette Gum - BUC Q2H PRN NICOTINE REPLACEMENT RX Multivit/Folic Acid/Iron 1 tab 07/13/17 10:00 07/20/17 10:13 Vitamins (Sjr) - PO 1 tab DAILY BETTY Administration Pseudoephedrine/Triprolidine 1 combo 07/12/17 15:56 Actifed - PO TID PRN NASAL CONGESTION Thiamine HCl 100 mg 07/12/17 22:00 07/19/17 21:13 Vitamin B1 - PO 100 mg HS BETTY Administration Ziprasidone 40 mg 07/13/17 17:30 07/20/17 07:27 Geodon - PO 40 mg BIDWM BETTY Administration Current Side Effect: No Lab tests ordered: Yes Lab tests reviewed: Yes Provider note:: Patient reports experiencing difficulty to sleep. Told aligner typewriter that he has been sleeping poorly despite taking Remeron 45 mg po HS. Hypnotic properties of Belsomra discussed with patient and he agreed to try it Total face to face time:: 15 Mental Status Exam - Mental Status Exam Alert and Oriented to: Time, Place, Person Cognitive Function: Fair Patient Appearance: Well Groomed Mood: Hopeful, Euthymic Affect: Appropriate Patient Behavior: Cooperative Speech Pattern: Clear Voice Loudness: Normal Thought Process: Intact, Goal Oriented Thought Disorder: Not Present Hallucinations: Denies Suicidal Ideation: Denies Homicidal Ideation: Denies Insight/Judgement: Fair Sleep: Poorly Appetite: Good Muscle strength/Tone: Normal Gait/Station: Normal Psychiatric Treatment Plan - Problem List (1) Alcohol dependence Current Visit: Yes (2) Opioid dependence Current Visit: Yes (3) Cocaine dependence Current Visit: Yes (4) Nicotine dependence Current Visit: No Qualifiers: Nicotine product type: cigarettes Substance use status: in withdrawal Qualified Code(s): F17.213 - Nicotine dependence, cigarettes, with withdrawal (5) Schizoaffective disorder Current Visit: Yes (6) PPD positive Current Visit: No Initial treatment plan: 1) Start Belsomra 10 mg po HS prn for insomnia. 2) Monitor progress
[2017-07-20] MEDS: THIAMINE HCL 100 MG TABLET (FP) PO SCH (21:10)
[2017-07-20] MEDS: MIRTAZAPINE 15 MG TABLET (FP) PO SCH (21:11)
[2017-07-20] MEDS: LIDOCAINE PATCH REMOVAL MC SCH (21:13)
[2017-07-20] MEDS: SUVOREXANT 10 MG TABLET PO PRN (21:13)
[2017-07-21] MEDS: CYCLOBENZAPRINE HCL 5 MG TABLET PO SCH ×3 (06:01→21:04)
[2017-07-21] MEDS: ACETAMINOPHEN 325 MG TABLET (FP) PO PRN ×2 (06:01→21:05)
[2017-07-21] MEDS: ZIPRASIDONE 40 MG CAPSULE (FP) PO SCH ×2 (07:05→18:31)
[2017-07-21] MEDS: NICOTINE 21 MG/24 HOURS TOPICAL PATCH TD SCH (10:21)
[2017-07-21] MEDS: LIDOCAINE 5% TOPICAL PATCH TP SCH (10:21)
[2017-07-21] MEDS: PRENATAL VITAMINS W/ FOLIC ACID TABLET (FP) PO SCH (10:21)
[2017-07-21] MEDS: guaiFENesin/D-METHORPHAN HB 10 ML UNIT-DOSE CUPS PO PRN (12:45)
[2017-07-21] MEDS: IBUPROFEN 400 MG TABLET (FP) PO PRN (15:20)
[2017-07-21] MEDS: MIRTAZAPINE 15 MG TABLET (FP) PO SCH (21:04)
[2017-07-21] MEDS: THIAMINE HCL 100 MG TABLET (FP) PO SCH (21:04)
[2017-07-21] MEDS: SUVOREXANT 10 MG TABLET PO PRN (21:06)
[2017-07-21] MEDS: LIDOCAINE PATCH REMOVAL MC SCH (21:42)
[2017-07-22] MEDS: CYCLOBENZAPRINE HCL 5 MG TABLET PO SCH ×3 (05:56→21:41)
[2017-07-22] MEDS: ACETAMINOPHEN 325 MG TABLET (FP) PO PRN ×2 (05:56→13:23)
[2017-07-22] MEDS: ZIPRASIDONE 40 MG CAPSULE (FP) PO SCH ×2 (07:16→17:00)
[2017-07-22] MEDS: NICOTINE 21 MG/24 HOURS TOPICAL PATCH TD SCH (10:09)
[2017-07-22] MEDS: PRENATAL VITAMINS W/ FOLIC ACID TABLET (FP) PO SCH (10:10)
[2017-07-22] MEDS: LIDOCAINE 5% TOPICAL PATCH TP SCH (10:10)
[2017-07-22] MEDS: guaiFENesin/D-METHORPHAN HB 10 ML UNIT-DOSE CUPS PO PRN ×2 (13:25→21:40)
[2017-07-22] MEDS: THIAMINE HCL 100 MG TABLET (FP) PO SCH (21:40)
[2017-07-22] MEDS: IBUPROFEN 400 MG TABLET (FP) PO PRN (21:41)
[2017-07-22] MEDS: MIRTAZAPINE 15 MG TABLET (FP) PO SCH (21:41)
[2017-07-22] MEDS: LIDOCAINE PATCH REMOVAL MC SCH (21:42)
[2017-07-23] MEDS: CYCLOBENZAPRINE HCL 5 MG TABLET PO SCH ×3 (06:11→21:15)
[2017-07-23] MEDS: guaiFENesin/D-METHORPHAN HB 10 ML UNIT-DOSE CUPS PO PRN ×2 (06:11→17:45)
[2017-07-23] MEDS: ZIPRASIDONE 40 MG CAPSULE (FP) PO SCH ×2 (08:13→17:44)
[2017-07-23] MEDS: NICOTINE 21 MG/24 HOURS TOPICAL PATCH TD SCH (10:08)
[2017-07-23] MEDS: IBUPROFEN 400 MG TABLET (FP) PO PRN ×2 (10:08→21:17)
[2017-07-23] MEDS: LIDOCAINE 5% TOPICAL PATCH TP SCH (10:08)
[2017-07-23] MEDS: PRENATAL VITAMINS W/ FOLIC ACID TABLET (FP) PO SCH (10:08)
[2017-07-23] MEDS: ACETAMINOPHEN 325 MG TABLET (FP) PO PRN (17:45)
--- NOTE | 2017-07-23 19:35 | PN ---
S Progress Note Note: Psychiatry Attending's on-call note : Belsomra renewed. 10 mg po hs prn. Patient agrees.
[2017-07-23] MEDS: SUVOREXANT 10 MG TABLET PO PRN (21:16)
[2017-07-23] MEDS: THIAMINE HCL 100 MG TABLET (FP) PO SCH (21:16)
[2017-07-23] MEDS: MIRTAZAPINE 15 MG TABLET (FP) PO SCH (21:16)
[2017-07-23] MEDS: LIDOCAINE PATCH REMOVAL MC SCH (21:59)
[2017-07-24] MEDS: CYCLOBENZAPRINE HCL 5 MG TABLET PO SCH ×3 (06:04→21:06)
[2017-07-24] MEDS: ZIPRASIDONE 40 MG CAPSULE (FP) PO SCH ×2 (07:47→17:07)
[2017-07-24] MEDS: NICOTINE 21 MG/24 HOURS TOPICAL PATCH TD SCH (09:57)
[2017-07-24] MEDS: LIDOCAINE 5% TOPICAL PATCH TP SCH (09:57)
[2017-07-24] MEDS: PRENATAL VITAMINS W/ FOLIC ACID TABLET (FP) PO SCH (09:57)
[2017-07-24] MEDS: hydrOXYzine PAMOATE 50 MG CAPSULE (FP) PO PRN ×2 (17:07→21:06)
[2017-07-24] MEDS: THIAMINE HCL 100 MG TABLET (FP) PO SCH (21:05)
[2017-07-24] MEDS: SUVOREXANT 10 MG TABLET PO PRN (21:05)
[2017-07-24] MEDS: MIRTAZAPINE 15 MG TABLET (FP) PO SCH (21:06)
[2017-07-24] MEDS: guaiFENesin/D-METHORPHAN HB 10 ML UNIT-DOSE CUPS PO PRN (21:07)
[2017-07-24] MEDS: ACETAMINOPHEN 325 MG TABLET (FP) PO PRN (21:08)
[2017-07-24] MEDS: LIDOCAINE PATCH REMOVAL MC SCH (22:07)
[2017-07-25] MEDS: ACETAMINOPHEN 325 MG TABLET (FP) PO PRN (06:38)
[2017-07-25] MEDS: CYCLOBENZAPRINE HCL 5 MG TABLET PO SCH (06:38)
[2017-07-25] MEDS: ZIPRASIDONE 40 MG CAPSULE (FP) PO SCH (07:31)
[2017-07-25] MEDS: LIDOCAINE 5% TOPICAL PATCH TP SCH (09:42)
[2017-07-25] MEDS: PRENATAL VITAMINS W/ FOLIC ACID TABLET (FP) PO SCH (09:42)
[2017-07-25] MEDS: NICOTINE 21 MG/24 HOURS TOPICAL PATCH TD SCH (09:42)
[2017-07-25] MEDS: hydrOXYzine PAMOATE 50 MG CAPSULE (FP) PO PRN (12:32)
[2017-07-26] MEDS: ACETAMINOPHEN 325 MG TABLET (FP) PO PRN (06:15)
[2017-07-26] MEDS: CYCLOBENZAPRINE HCL 5 MG TABLET PO SCH (06:15)
[2017-07-26 06:44] VITALS: BP 103/65; PULSE 99; TEMP 98.4
[2017-07-26] MEDS: ZIPRASIDONE 40 MG CAPSULE (FP) PO SCH (07:11)
[2017-07-26] MEDS: LIDOCAINE 5% TOPICAL PATCH TP SCH (09:16)
[2017-07-26] MEDS: NICOTINE 21 MG/24 HOURS TOPICAL PATCH TD SCH (09:16)
[2017-07-26] MEDS: PRENATAL VITAMINS W/ FOLIC ACID TABLET (FP) PO SCH (09:16)
[2017-07-26] MEDS ORDERED: PT OWN MED DRAWER 7, Y5N ONE (09:22)
--- NOTE | 2017-07-26 09:32 | PN ---
Psychiatric Progress Note Vital Signs: Vital Signs Period Temp Pulse Resp BP Sys/Garcia Pulse Ox Last 24 Hr 98.4 F 99 18-20 103/65 Date of Session: 07/26/17 Chief Complaint:: Discharge Note HPI: Patient adressing Alcohol, Opoid and Cocaine Dependence comorbid with Nicotone Dependence and Schizoaffective Disorder ROS: PPD+ Current Medications: Active Medications Generic Name Dose Route Start Last Admin Trade Name Freq PRN Reason Stop Dose Admin Acetaminophen 650 mg 07/12/17 15:56 07/26/17 06:15 Tylenol - PO 650 mg Q4H PRN Administration FEVER OR PAIN Al Hydroxide/Mg Hydroxide 30 ml 07/12/17 15:56 Mylanta Oral Suspension - PO Q6H PRN DYSPEPSIA Cyclobenzaprine HCl 5 mg 07/15/17 14:00 07/26/17 06:15 Cyclobenzaprine Hcl PO 5 mg TID BETTY Administration Eucalyptus/Menthol/Phenol/Sorbitol 1 each 07/12/17 15:56 Cepastat Lozenge - MM Q4H PRN SORE THROAT Guaifenesin 10 ml 07/12/17 15:56 07/24/17 21:07 Robitussin Dm - PO 10 ml Q6H PRN Administration COUGH Hydroxyzine Pamoate 50 mg 07/12/17 15:56 07/25/17 12:32 Vistaril - PO 50 mg Q4H PRN Administration AGITATION Ibuprofen 400 mg 07/12/17 15:56 07/23/17 21:17 Motrin - PO 400 mg Q6H PRN Administration PAIN Lidocaine 1 patch 07/18/17 17:15 07/26/17 09:16 Lidoderm Patch - TP 1 patch DAILY BETTY Administration Loperamide HCl 4 mg 07/12/17 15:56 Imodium - PO Q6H PRN DIARRHEA Magnesium Citrate 300 ml 07/12/17 15:56 Citroma - PO Q48H PRN CONSTIPATION Magnesium Hydroxide 30 ml 07/12/17 15:56 Milk Of Magnesia - PO DAILY PRN CONSTIPATION Mirtazapine 45 mg 07/12/17 22:00 07/24/17 21:06 Remeron - PO 45 mg HS BETTY Administration Miscellaneous 1 each 07/18/17 22:00 07/24/17 22:07 Lidoderm Patch Removal MC Not Given DAILY@2200 BETTY Nicotine 21 mg 07/13/17 10:00 07/26/17 09:16 Nicoderm Patch - TD Not Given DAILY BETTY Nicotine Polacrilex 2 mg 07/12/17 15:56 Nicorette Gum - BUC Q2H PRN NICOTINE REPLACEMENT RX Multivit/Folic Acid/Iron 1 tab 07/13/17 10:00 07/26/17 09:16 Vitamins (Sjr) - PO 1 tab DAILY BETTY Administration Pseudoephedrine/Triprolidine 1 combo 07/12/17 15:56 Actifed - PO TID PRN NASAL CONGESTION Thiamine HCl 100 mg 07/12/17 22:00 07/24/17 21:05 Vitamin B1 - PO 100 mg HS BETTY Administration Ziprasidone 40 mg 07/13/17 17:30 07/26/17 07:11 Geodon - PO 40 mg BIDWM BETTY Administration Current Side Effect: No Lab tests ordered: Yes Lab tests reviewed: Yes Provider note:: Patient has completed this program today. He has met his treatment goals and will continue to address his issues by attending AA/NA. Told greeting card writer that from his participation in this program, he has learned the importance of going to meetings and have a sponsor. He responded well to Geodon 40 mg po BID and Remeron 45 mg po HS. Scripts for 30 days supply of these medications are electronically transmitted to [facility] at [address] [place] [address]. He is stable for discharge today Total face to face time:: 35 Mental Status Exam - Mental Status Exam Alert and Oriented to: Time, Place, Person Cognitive Function: Fair Patient Appearance: Well Groomed Mood: Hopeful, Euthymic Affect: Appropriate Patient Behavior: Cooperative Speech Pattern: Clear Voice Loudness: Normal Thought Process: Intact, Goal Oriented Thought Disorder: Not Present Hallucinations: Denies Suicidal Ideation: Denies Homicidal Ideation: Denies Insight/Judgement: Fair Sleep: Fair Appetite: Good Muscle strength/Tone: Normal Gait/Station: Normal Psychiatric Treatment Plan - Problem List (1) Alcohol dependence Current Visit: Yes (2) Opioid dependence Current Visit: Yes (3) Cocaine dependence Current Visit: Yes (4) Nicotine dependence Current Visit: No Qualifiers: Nicotine product type: cigarettes Substance use status: in withdrawal Qualified Code(s): F17.213 - Nicotine dependence, cigarettes, with withdrawal (5) Schizoaffective disorder Current Visit: Yes (6) PPD positive Current Visit: No Initial treatment plan: Patient is discharged today and will be attending AA/NA as he refuses referral to outpatient treatment
== END 2017-07-26 09:50 | disposition home or self-care (01) | DRG 772 ==
LOC: YASAS 15:25 → Y3W 15:27
PROVIDERS: ADMIT Psychiatry & Neurology Psychiatry; ATTEND Psychiatry & Neurology Psychiatry
PROC: HZ42ZZZ Group Counseling for Substance Abuse Treatment, Cognitive-Behavioral (ICD-10-PCS; principal; 2017-07-12)
DX: F11.20 Opioid dependence, uncomplicated (principal); F10.20 Alcohol dependence, uncomplicated; F14.20 Cocaine dependence, uncomplicated; F17.213 Nicotine dependence, cigarettes, with withdrawal; F25.9 Schizoaffective disorder, unspecified

== ENCOUNTER 2018-05-15 16:03 | Inpatient (IN) | payer OTHER ==
--- NOTE | 2018-05-15 20:35 | HP ---
COWS - Scale Resting Pulse: 1= FL 81-100 Sweatin=Flushed/Facial Moisture Restless Observation: 1= Difficult to Sit Still Pupil Size: 0= Normal to Room Light Bone or Joint Aches: 4=Acute Joint/Muscle Pain Runny Nose/ Eye Tearin= Nasal Congestion GI Upset > 30mins: 2= Nausea/Diarrhea (DIARRHEA X 2) Tremor Observation: 4= Gross Tremor/Twitching Yawning Observation: 0= None Anxiety or Irritability: 2=Irritable/Anxious Goose Flesh Skin: 3=Piloerection COWS Score: 20 CIWA Score - CIWA Score Nausea/Vomitin-Mild Nausea/No Vomiting Muscle Tremors: 4-Moderate,w/Arms Extend Anxiety: 4-Mod. Anxious/Guarded Agitation: 4-Moderately Restless Paroxysmal Sweats: 2 Orientation: 0-Oriented Tacttile Disturbances: 1-Very Mild Itch/Numbness Auditory Disturbances: 0-None Visual Disturbances: 0-None Headache: 3-Moderate CIWA-Ar Total Score: 19 Admission ROS S - HPI Chief Complaint: ALCOHOL AND OPIOID WITHDRAWAL SYMPTOMS Allergies/Adverse Reactions: Allergies Allergy/AdvReac Type Severity Reaction Status Date / Time No Known Allergies Allergy Verified 05/15/18 17:40 History of Present Illness: 57 years old male with 40 years of alcohol and opioid dependence is seeking admission to detox. Reports 30 months of sobriety. Patient reports history of depression and suicide attempt in 1989. He denies suicidal ideation at this time. - Ebola screening Have you traveled outside of the country in the last 21 days: No (N) Have you had contact with anyone from an Ebola affected area: No Have you been sick,other than usual withdrawal symptoms: No Do you have a fever: No - Review of Systems Constitutional: Chills, Loss of Appetite, Malaise, Changes in sleep, Weakness EENT: reports: Blurred Vision, Nose Congestion Respiratory: reports: SOB with Exertion Cardiac: reports: No Symptoms Reported GI: reports: Diarrhea (x 2), Nausea, Poor Appetite, Poor Fluid Intake, Abdominal cramping : reports: No Symptoms Reported Musculoskeletal: reports: Back Pain, Muscle Pain Integumentary: reports: Dryness Neuro: reports: Tremors, Dizziness Endocrine: reports: No Symptoms Reported Hematology: reports: No Symptoms Reported Psychiatric: reports: Mood/Affect Appropiate, Orientated x3, Depressed Other Systems: Reviewed and Negative Patient History - Patient Medical History Hx Anemia: No Hx Asthma: No Hx Chronic Obstructive Pulmonary Disease (COPD): No Hx Cancer: No Hx Cardiac Disorders: No Hx Congestive Heart Failure: No Hx Hypertension: No Hx Hypercholesterolemia: No Hx Pacemaker: No Hx Seizures: No Hx Diabetes: No Hx Gastrointestinal Disorders: No Hx Genitourinary Disorders: No Hx Sexually Transmitted Disorders: No Hx Renal Disease (ESRD): No Hx Thyroid Disease: No Hx Human Immunodeficiency Virus (HIV): No (Negative 2018) Hx Hepatitis C: No Hx Depression: Yes ([place]) Hx Suicide Attempt: No Hx Bipolar Disorder: Yes (Not on medication) Hx Schizophrenia: Yes (Not on medication) - Patient Surgical History Past Surgical History: No Hx Neurologic Surgery: No Hx Cataract Extraction: No Hx Cardiac Surgery: No Hx Lung Surgery: No Hx Abdominal Surgery: No Hx Appendectomy: No Hx Cholecystectomy: No Hx Genitourinary Surgery: No Hx Orthopedic Surgery: No Anesthesia Reaction: No - PPD History Previous Implant?: Yes Documented Results: Positive w/proof Implanted On Prior [facility] Admission?: No Results: cxr done PPD to be Administered?: No - Reproductive History Patient is a Female of Child Bearing Age (11 -55 yrs old): No (MALE) - Smoking Cessation Smoking history: Current every day smoker Have you smoked in the past 12 months: Yes Aproximately how many cigarettes per day: 20 Hx Chewing Tobacco Use: No Initiated information on smoking cessation: Yes 'Breaking Loose' booklet given: 05/15/18 - Substance & Tx. History Hx Alcohol Use: Yes Hx Substance Use: Yes Substance Use Type: Alcohol, Cocaine, Heroin, Marijuana, Opiates Hx Substance Use Treatment: Yes ([facility]) - Substances Abused Heroin Route: Inhalation Frequency: Daily Amount used: 3 bags Age of first use: 18 Date of Last Use: 05/15/18 Crack Route: Smoking Frequency: Daily Amount used: $100 Age of first use: 17 Date of Last Use: 05/15/18 Alcohol Route: Oral Frequency: Daily Amount used: 6 pk beer 22 oz Age of first use: 17 Date of Last Use: 05/15/18 Marijuana/Hashish Route: Smoking Frequency: Daily Amount used: 1-2 blunts Age of first use: 17 Date of Last Use: 05/15/18 percocet Route: Oral Frequency: 1-2 times per week Amount used: 1-2 pills Age of first use: 57 Date of Last Use: 05/13/18 Family Disease History - Family Disease History Family Disease History: CA: Father (colon ca, age 63), Mother (unknown , age 73 ) Admission Physical Exam [facility] - Vital Signs Vital Signs: Vital Signs - 24 hr 05/15/18 17:36 Temperature 97.7 F Pulse Rate 90 Respiratory 18 Rate Blood Pressure 138/82 - Physical General Appearance: Yes: Moderate Distress, Tremorous, Irritable, Anxious HEENTM: Yes: EOMI, Normocephalic, Normal Voice, NAVDEEP Respiratory: Yes: Lungs Clear, Normal Breath Sounds, No Respiratory Distress Neck: Yes: Supple Breast: Yes: Breast Exam Deferred Cardiology: Yes: Tachycardia Abdominal: Yes: Normal Bowel Sounds Genitourinary: Yes: Within Normal Limits Back: Yes: Normal Inspection Musculoskeletal: Yes: Back pain, Muscle Pain Extremities: Yes: Tremors Neurological: Yes: 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 II-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 NML intact, Alert, Normal Mood/Affect Integumentary: Yes: Warm Lymphatic: Yes: Within Normal Limits - Diagnostic (1) Alcohol dependence with withdrawal, uncomplicated Current Visit: Yes Status: Chronic (2) Cocaine dependence, uncomplicated Current Visit: Yes Status: Chronic (3) Nicotine dependence Current Visit: Yes Status: Chronic Qualifiers: Nicotine product type: cigarettes Substance use status: in withdrawal Qualified Code(s): F17.213 - Nicotine dependence, cigarettes, with withdrawal (4) Opioid dependence with withdrawal Current Visit: Yes Status: Chronic (5) Bipolar disorder (manic depression) Current Visit: No Status: Chronic Qualifiers: Active/Remission status: remission status unspecified Qualified Code(s): F31.9 - Bipolar disorder, unspecified (6) Depression Current Visit: Yes Status: Chronic Qualifiers: Depression Type: unspecified Qualified Code(s): F32.9 - Major depressive disorder, single episode, unspecified (7) PPD positive Current Visit: No Status: Chronic Cleared for Admission [facility] - Detox or Rehab [facility] Level of Care: Medically Managed Detox Regimen/Protocol: Methadone/Valium [facility] Breath Alcohol Content Breath Alcohol Content: 0.025 Urine Drug Screen - Results Drug Screen Negative: No Urine Drug Screen Results: THC-Marijuana, CINDA-Cocaine, OPI-Opiates, BAR- Barbiturates, BZO-Benzodiazepines, FEN-Fentanyl, BUP-Suboxone
[2018-05-15] MEDS ORDERED: METHADONE HCL 10 MG TABLET (FOR DETOX USE ONLY) PO ONE ×2 (20:58→23:00)
[2018-05-15] MEDS ORDERED: MAGNESIUM CITRATE 300 ML BOTTLE PO PRN (20:58)
[2018-05-15] MEDS ORDERED: diazePAM 5 MG TABLET PO ONE (20:58)
[2018-05-15] MEDS ORDERED: LOPERAMIDE HCL 2 MG CAPSULE PO PRN (20:58)
[2018-05-15] MEDS ORDERED: NICOTINE POLACRILEX 2 MG GUM BC PRN (20:58)
[2018-05-15] MEDS ORDERED: MAGNESIUM HYDROX 2400MG/30ML ORAL SUSPENSION 30 ML CUP PO PRN (20:58)
[2018-05-15] MEDS ORDERED: MAG HYDROX/AL HYDROX/SIMETH 30 ML UNIT-DOSE CUP PO PRN (20:58)
[2018-05-15] MEDS ORDERED: P-EPHED 60MG/TRIPROLIDI 2.5MG TABLET PO PRN (20:58)
[2018-05-15] MEDS ORDERED: ACETAMINOPHEN 325 MG TABLET (FP) PO PRN (20:58)
[2018-05-15] MEDS ORDERED: MENTHOL/PHENOL 1 EACH UD MM PRN (20:58)
[2018-05-15] MEDS ORDERED: MELATONIN 5 MG TABLETS PO PRN (22:00)
[2018-05-15] MEDS: THIAMINE HCL 100 MG TABLET (FP) PO SCH (22:31)
[2018-05-15] MEDS: diazePAM 5 MG TABLET PO SCH (22:42)
[2018-05-16 01:34] LABS: URINE APPEARANCE CLEAR; URINE BILIRUBIN NEGATIVE (<2.0 mg/dL); URINE COLOR AMBER; URINE GLUCOSE (UA) NEGATIVE (NEGATIVE); URINE KETONE NEGATIVE (NEGATIVE); URINE LEUK ESTERASE NEGATIVE (NEGATIVE); URINE NITRITE NEGATIVE (NEGATIVE); URINE PROTEIN 2+ (NEGATIVE); URINE UROBILINOGEN 4.0 E.U/dl mg/dL (0.2-1.0)
[2018-05-16 01:59] LABS: URINE HYALINE CAST 1 /lpf; URINE MUCUS MODERATE
[2018-05-16] MEDS: guaiFENesin/D-METHORPHAN HB 10 ML UNIT-DOSE CUPS PO PRN (05:54)
[2018-05-16] MEDS: diazePAM 5 MG TABLET PO SCH ×3 (05:54→22:33)
[2018-05-16] MEDS ORDERED: METHADONE HCL 10 MG TABLET (FOR DETOX USE ONLY) PO SCH (10:00)
--- NOTE | 2018-05-16 10:25 | PN ---
[facility] CIWA - CIWA Score Nausea/Vomitin-Mild Nausea/No Vomiting Muscle Tremors: 4-Moderate,w/Arms Extend Anxiety: 3 Agitation: 3 Paroxysmal Sweats: 1-Minimal Palms Moist Orientation: 1-Uncertain about Date Tacttile Disturbances: 1-Very Mild Itch/Numbness Auditory Disturbances: 1-Very Mild Visual Disturbances: 0-None Headache: 1-Very Mild CIWA-Ar Total Score: 16 [facility] COWS - Scale Resting Pulse: 0= ID 80 or Below Sweatin= Chills/Flushing Restless Observation: 1= Difficult to Sit Still Pupil Size: 0= Normal to Room Light Bone or Joint Aches: 2= Severe Diffuse Aches Runny Nose/ Eye Tearin= Nasal Congestion GI Upset > 30mins: 2= Nausea/Diarrhea Tremor Observation of Outstretched Hands: 2= Slight Tremor Visible Yawning Observation: 1= 1-2x During Session Anxiety or Irritability: 2=Irritable/Anxious Goose Flesh Skin: 3=Piloerection COWS Score: 15 [facility] Progress Note (SOAP) Subjective: body aches muscle pain sweat tremor anxiety restlessness trouble sleep at night Objective: 05/16/18 10:26 Vital Signs Temperature 98.4 F 05/16/18 09:11 Pulse Rate 61 05/16/18 09:11 Respiratory Rate 18 05/16/18 09:11 Blood Pressure 102/71 05/16/18 09:11 O2 Sat by Pulse Oximetry (%) Laboratory Last Values Urine Color Cristy 05/16/18 00:06 Urine Appearance Clear 05/16/18 00:06 Urine pH 5.0 (5.0-8.0) 05/16/18 00:06 Ur Specific [place] 1.034 (1.010-1.035) 05/16/18 00:06 Urine Protein 2+ (NEGATIVE) H 05/16/18 00:06 Urine Glucose (UA) Negative (NEGATIVE) 05/16/18 00:06 Urine Ketones Negative (NEGATIVE) 05/16/18 00:06 Urine Blood Negative (NEGATIVE) 05/16/18 00:06 Urine Nitrite Negative (NEGATIVE) 05/16/18 00:06 Urine Bilirubin Negative (<2.0 mg/dL) 05/16/18 00:06 Urine Urobilinogen 4.0 e.u/dl mg/dL (0.2-1.0) 05/16/18 00:06 Ur Leukocyte Esterase Negative (NEGATIVE) 05/16/18 00:06 Urine WBC (Auto) 5 /hpf (3-5) 05/16/18 00:06 Urine RBC (Auto) 1 /hpf (0-3) 05/16/18 00:06 Hyaline Casts 1 /lpf 05/16/18 00:06 Urine Mucus Moderate 05/16/18 00:06 lab noted Assessment: 05/16/18 10:27 withdrawal sx Plan: continue detox
[2018-05-16] MEDS: diazePAM 5 MG TABLET PO PRN (10:36)
[2018-05-16] MEDS: PRENATAL VITAMINS W/ FOLIC ACID TABLET (FP) PO SCH (10:36)
[2018-05-16] MEDS: NICOTINE 14 MG/24 HOURS TOPICAL PATCH TD SCH (10:37)
[2018-05-16] MEDS: IBUPROFEN 400 MG TABLET (FP) PO PRN (10:38)
[2018-05-16 11:38] LABS: ALBUMIN 3.1 g/dl (3.4-5.0); ALK PHOS 99 U/L (45-117); ANION GAP 6 MMOL/L (8-16); BILIRUBIN,TOTAL 0.3 mg/dL (0.2-1); BLOOD UREA NITROGEN 16 mg/dL (7-18); CALCIUM 8.3 mg/dL (8.5-10.1); CHLORIDE 107 mmol/L (98-107); CO2 29 mmol/L (21-32); CREATININE 0.9 mg/dL (0.55-1.3); GLUCOSE,RANDOM 80 mg/dL (74-106); POTASSIUM 4.2 mmol/L (3.5-5.1); SGOT/AST 29 U/L (15-37); SGPT/ALT 20 U/L (13-61); SODIUM 142 mmol/L (136-145); TOT PROT 6.4 g/dl (6.4-8.2)
[2018-05-16 11:41] LABS: HEMATOCRIT 39.3 % (35.4-49); HEMOGLOBIN 13.2 GM/dL (11.7-16.9); MCH 31.1 pg (25.7-33.7); MCHC 33.5 g/dl (32.0-35.9); MEAN CELL VOLUME 92.9 fl (80-96); MEAN PLT VOLUME 7.5 fl (7.5-11.1); PLATELET COUNT 293 K/MM3 (134-434); RBC 4.23 M/mm3 (4.00-5.60); RDW 14.4 % (11.9-15.9); WHITE BLOOD COUNT 4.9 K/mm3 (4.0-10.0)
--- NOTE | 2018-05-16 12:10 | EKG ---
Test Reason : Blood Pressure : / mmHG Vent. Rate : 057 BPM Atrial Rate : 057 BPM P-R Int : 122 ms QRS Dur : 116 ms QT Int : 462 ms P-R-T Axes : 070 -43 -55 degrees QTc Int : 449 ms SINUS BRADYCARDIA LEFT AXIS DEVIATION RIGHT BUNDLE BRANCH BLOCK ABNORMAL ECG Confirmed by MD BERNARDO, MENA ([id number]) on 05/16/2018 12:10:42 PM Referred By: Confirmed By:MENA CHANG MD
--- NOTE | 2018-05-16 13:35 | CONSULT ---
[facility] Psychiatric Consult - Data Date of interview: 05/16/18 Admission source: [facility] Identifying data: Patient is a 57 year old male, father of three, unemployed, domiciled. This is one of [facility]. Patient admitted to for alcohol, cocaine, and opiate dependence. Substance Abuse History: Smoking Cessation. Smoking history: Current every day smoker. Have you smoked in the past 12 months: Yes. Aproximately how many cigarettes per day: 20. Hx Chewing Tobacco Use: No. Initiated information on smoking cessation: Yes. 'Breaking Loose' booklet given: 05/15/18. - Substance & Tx. History. Hx Alcohol Use: Yes. Hx Substance Use: Yes. Substance Use Type : Alcohol, Cocaine, Heroin, Marijuana, Opiates. Hx Substance Use Treatment: Yes ([facility] - Substances Abused. Heroin. Route: Inhalation. Frequency: Daily. Amount used: 3 bags. Age of first use: 18. Date of Last Use: . Crack. Route: Smoking. Frequency: Daily. Amount used: $100. Age of first use: 17. Date of Last Use: 05/15/18. Alcohol. Route: Oral. Frequency: Daily. Amount used: 6 pk beer 22 oz. Age of first use: 17. Date of Last Use: 05/15/18. Marijuana/Hashish. Route: Smoking. Frequency: Daily. Amount used: 1-2 blunts. Age of first use: 17. Date of Last Use: 05/15. percocet. Route: Oral. Frequency: 1-2 times per week. Amount used: 1 -2 pills. Age of first use: 57. Date of Last Use: 05/13/18 Medical History: h/o PPD + Psychiatric History: Patient reports one psychiatric unit at [facility]. Patient reports outpatient psychiatric services but is unable to recall the clinic. Patient falling asleep while speaking to television script writer. Business Case Analyst unable to obtain additional information from patient. Pharmacy claims reviewed and noted a prescription of seroquel 300mg qhs + cogentin 2mg BID was given electronically sent to patient's pharmacy on 05/09/[address]. [address] Reeves's note on 07/13/17 patient was also admitted to [facility] psychiatric facility and has been prescribed geodon, cogentin and mirtzapine in the past. Reports history of suicidal attempt by running in front of traffic years ago. Physical/Sexual Abuse/Trauma History: denies. Mental Status Exam - Mental Status Exam Alert and Oriented to: Time, Place, Person Cognitive Function: Fair Patient Appearance: Unkempt Mood: Withdrawn Affect: Mood Congruent Patient Behavior: Fatigued, Asleep (Patient falling asleep througout interview.) Speech Pattern: Slurred Voice Loudness: Moderately Soft/Quiet Thought Process: Goal Oriented Thought Disorder: Not Present Hallucinations: Denies Suicidal Ideation: Denies Homicidal Ideation: Denies Insight/Judgement: Poor Sleep: Poorly Appetite: Fair Muscle strength/Tone: Normal Gait/Station: Normal Psychiatric Findings - Problem List ([place] 1, 2,3) (1) Alcohol dependence with withdrawal, uncomplicated Current Visit: Yes Status: Chronic (2) Cocaine dependence, uncomplicated Current Visit: Yes Status: Chronic (3) Opioid dependence with withdrawal Current Visit: Yes Status: Chronic (4) Substance induced mood disorder Current Visit: Yes Status: Acute (5) Schizoaffective disorder Current Visit: Yes Status: Chronic - Initial Treatment Plan Initial Treatment Plan: Psychoeducation provided. Detoxification in progress. Will order Seroquel 100mg (reduced dosaged with plan to increase dosage if current dose is tolerated ) + cogentin 1mg qhs. Will Benefits and side effects discussed. Verbal consent given.
--- NOTE | 2018-05-16 18:47 | PN ---
[facility] Progress Note Note: Vital Signs Temperature 97.7 F 05/16/18 13:46 Pulse Rate 62 05/16/18 13:46 Respiratory Rate 18 05/16/18 13:46 Blood Pressure 94/77 05/16/18 13:46 O2 Sat by Pulse Oximetry (%) Laboratory Last Values WBC 4.9 K/mm3 (4.0-10.0) 05/16/18 07:00 RBC 4.23 M/mm3 (4.00-5.60) 05/16/18 07:00 Hgb 13.2 GM/dL (11.7-16.9) 05/16/18 07:00 Hct 39.3 % (35.4-49) 05/16/18 07:00 MCV 92.9 fl (80-96) 05/16/18 07:00 MCH 31.1 pg (25.7-33.7) 05/16/18 07:00 MCHC 33.5 g/dl (32.0-35.9) 05/16/18 07:00 RDW 14.4 % (11.9-15.9) 05/16/18 07:00 Plt Count 293 K/MM3 (134-434) 05/16/18 07:00 MPV 7.5 fl (7.5-11.1) D 05/16/18 07:00 Sodium 142 mmol/L (136-145) 05/16/18 07:00 Potassium 4.2 mmol/L (3.5-5.1) 05/16/18 07:00 Chloride 107 mmol/L (98-107) 05/16/18 07:00 Carbon Dioxide 29 mmol/L (21-32) 05/16/18 07:00 Anion Gap 6 MMOL/L (8-16) L 05/16/18 07:00 BUN 16 mg/dL (7-18) 05/16/18 07:00 Creatinine 0.9 mg/dL (0.55-1.3) 05/16/18 07:00 Creat Clearance w eGFR > 60 (>60) 05/16/18 07:00 Random Glucose 80 mg/dL (74-106) 05/16/18 07:00 Calcium 8.3 mg/dL (8.5-10.1) L 05/16/18 07:00 Total Bilirubin 0.3 mg/dL (0.2-1) 05/16/18 07:00 AST 29 U/L (15-37) 05/16/18 07:00 ALT 20 U/L (13-61) 05/16/18 07:00 Alkaline Phosphatase 99 U/L (45-117) 05/16/18 07:00 Total Protein 6.4 g/dl (6.4-8.2) 05/16/18 07:00 Albumin 3.1 g/dl (3.4-5.0) L 05/16/18 07:00 Urine Color Cristy 05/16/18 00:06 Urine Appearance Clear 05/16/18 00:06 Urine pH 5.0 (5.0-8.0) 05/16/18 00:06 Ur Specific [place] 1.034 (1.010-1.035) 05/16/18 00:06 Urine Protein 2+ (NEGATIVE) H 05/16/18 00:06 Urine Glucose (UA) Negative (NEGATIVE) 05/16/18 00:06 Urine Ketones Negative (NEGATIVE) 05/16/18 00:06 Urine Blood Negative (NEGATIVE) 05/16/18 00:06 Urine Nitrite Negative (NEGATIVE) 05/16/18 00:06 Urine Bilirubin Negative (<2.0 mg/dL) 05/16/18 00:06 Urine Urobilinogen 4.0 e.u/dl mg/dL (0.2-1.0) 05/16/18 00:06 Ur Leukocyte Esterase Negative (NEGATIVE) 05/16/18 00:06 Urine WBC (Auto) 5 /hpf (3-5) 05/16/18 00:06 Urine RBC (Auto) 1 /hpf (0-3) 05/16/18 00:06 Hyaline Casts 1 /lpf 05/16/18 00:06 Urine Mucus Moderate 05/16/18 00:06 RPR Titer Nonreactive (NONREACTIVE) 05/16/18 07:00 HIV 1&2 Antibody Screen Negative 05/16/18 07:00 HIV P24 Antigen Negative 05/16/18 07:00 Report received from DEWEY quiñonez yumi stovall walked into another patients room. Patient reports he feel a "little clumpy lately." patient examined by the bed side AOx3, coherent, friendly and cooperative, no distress no adventitious breath sounds full ROM, ambulatory d/c melatonin hold next valium dose if sedated hold tonights dose of seroquel increase PO fluids continue to monitor
[2018-05-16] MEDS: THIAMINE HCL 100 MG TABLET (FP) PO SCH (22:32)
[2018-05-16] MEDS: BENZTROPINE MESYLATE 1 MG TABLET (FP) PO SCH (22:33)
[2018-05-16] MEDS: QUEtiapine FUMARATE 100 MG TABLET (FP) PO SCH (22:33)
--- NOTE | 2018-05-17 09:51 | EKG ---
Test Reason : Blood Pressure : / mmHG Vent. Rate : 053 BPM Atrial Rate : 053 BPM P-R Int : 122 ms QRS Dur : 126 ms QT Int : 438 ms P-R-T Axes : 076 -09 -32 degrees QTc Int : 410 ms SINUS BRADYCARDIA RIGHT BUNDLE BRANCH BLOCK T WAVE ABNORMALITY, CONSIDER INFERIOR ISCHEMIA ABNORMAL ECG WHEN COMPARED WITH ECG OF 08-JUL-2017 17:01, INVERTED T WAVES HAVE REPLACED NONSPECIFIC T WAVE ABNORMALITY IN INFERIOR LEADS Confirmed by PRISCA MARCANO MD ([id number]) on 05/17/2018 9:51:09 AM Referred By: Confirmed By:PRISCA MARCANO MD
[2018-05-17] MEDS: METHADONE HCL 5 MG TABLET (FOR DETOX USE ONLY) PO SCH (09:53)
[2018-05-17] MEDS: PRENATAL VITAMINS W/ FOLIC ACID TABLET (FP) PO SCH (09:54)
[2018-05-17] MEDS: NICOTINE 14 MG/24 HOURS TOPICAL PATCH TD SCH (09:54)
[2018-05-17] MEDS: diazePAM 5 MG TABLET PO SCH ×2 (09:54→22:40)
--- NOTE | 2018-05-17 13:00 | PN ---
[facility] CIWA - CIWA Score Nausea/Vomitin-Mild Nausea/No Vomiting Muscle Tremors: 4-Moderate,w/Arms Extend Anxiety: 3 Agitation: 2 Paroxysmal Sweats: 1-Minimal Palms Moist Orientation: 0-Oriented Tacttile Disturbances: 1-Very Mild Itch/Numbness Auditory Disturbances: 0-None Visual Disturbances: 0-None Headache: 1-Very Mild CIWA-Ar Total Score: 13 S COWS - Scale Resting Pulse: 0= [place] 80 or Below Sweatin= Chills/Flushing Restless Observation: 1= Difficult to Sit Still Pupil Size: 0= Normal to Room Light Bone or Joint Aches: 2= Severe Diffuse Aches Runny Nose/ Eye Tearin= Nasal Congestion GI Upset > 30mins: 2= Nausea/Diarrhea Tremor Observation of Outstretched Hands: 1= Tremor [place], Not Seen Yawning Observation: 1= 1-2x During Session Anxiety or Irritability: 1=Feels Anxious/Irritable Goose Flesh Skin: 0=Smooth Skin COWS Score: 10 [facility] Progress Note (SOAP) Subjective: body ache tremor anxiety joints pain sweat alert oriented x 3 Objective: 05/17/18 13:42 Vital Signs Temperature 97.9 F 05/17/18 09:47 Pulse Rate 84 05/17/18 09:47 Respiratory Rate 18 05/17/18 09:47 Blood Pressure 116/84 05/17/18 09:47 O2 Sat by Pulse Oximetry (%) Laboratory Last Values WBC 4.9 K/mm3 (4.0-10.0) 05/16/18 07:00 RBC 4.23 M/mm3 (4.00-5.60) 05/16/18 07:00 Hgb 13.2 GM/dL (11.7-16.9) 05/16/18 07:00 Hct 39.3 % (35.4-49) 05/16/18 07:00 MCV 92.9 fl (80-96) 05/16/18 07:00 MCH 31.1 pg (25.7-33.7) 05/16/18 07:00 MCHC 33.5 g/dl (32.0-35.9) 05/16/18 07:00 RDW 14.4 % (11.9-15.9) 05/16/18 07:00 Plt Count 293 K/MM3 (134-434) 05/16/18 07:00 MPV 7.5 fl (7.5-11.1) D 05/16/18 07:00 Sodium 142 mmol/L (136-145) 05/16/18 07:00 Potassium 4.2 mmol/L (3.5-5.1) 05/16/18 07:00 Chloride 107 mmol/L (98-107) 05/16/18 07:00 Carbon Dioxide 29 mmol/L (21-32) 05/16/18 07:00 Anion Gap 6 MMOL/L (8-16) L 05/16/18 07:00 BUN 16 mg/dL (7-18) 05/16/18 07:00 Creatinine 0.9 mg/dL (0.55-1.3) 05/16/18 07:00 Creat Clearance w eGFR > 60 (>60) 05/16/18 07:00 Random Glucose 80 mg/dL (74-106) 05/16/18 07:00 Calcium 8.3 mg/dL (8.5-10.1) L 05/16/18 07:00 Total Bilirubin 0.3 mg/dL (0.2-1) 05/16/18 07:00 AST 29 U/L (15-37) 05/16/18 07:00 ALT 20 U/L (13-61) 05/16/18 07:00 Alkaline Phosphatase 99 U/L (45-117) 05/16/18 07:00 Ammonia 57.70 umol/L (11-32) H 05/17/18 07:00 Total Protein 6.4 g/dl (6.4-8.2) 05/16/18 07:00 Albumin 3.1 g/dl (3.4-5.0) L 05/16/18 07:00 Urine Color Cristy 05/16/18 00:06 Urine Appearance Clear 05/16/18 00:06 Urine pH 5.0 (5.0-8.0) 05/16/18 00:06 Ur Specific [place] 1.034 (1.010-1.035) 05/16/18 00:06 Urine Protein 2+ (NEGATIVE) H 05/16/18 00:06 Urine Glucose (UA) Negative (NEGATIVE) 05/16/18 00:06 Urine Ketones Negative (NEGATIVE) 05/16/18 00:06 Urine Blood Negative (NEGATIVE) 05/16/18 00:06 Urine Nitrite Negative (NEGATIVE) 05/16/18 00:06 Urine Bilirubin Negative (<2.0 mg/dL) 05/16/18 00:06 Urine Urobilinogen 4.0 e.u/dl mg/dL (0.2-1.0) 05/16/18 00:06 Ur Leukocyte Esterase Negative (NEGATIVE) 05/16/18 00:06 Urine WBC (Auto) 5 /hpf (3-5) 05/16/18 00:06 Urine RBC (Auto) 1 /hpf (0-3) 05/16/18 00:06 Hyaline Casts 1 /lpf 05/16/18 00:06 Urine Mucus Moderate 05/16/18 00:06 RPR Titer Nonreactive (NONREACTIVE) 05/16/18 07:00 HIV 1&2 Antibody Screen Negative 05/16/18 07:00 HIV P24 Antigen Negative 05/16/18 07:00 lab noted ammonia elevation lactulose Assessment: 05/17/18 13:45 withdrawal sx ammonia elevation Plan: continue detox lactulose
[2018-05-17] MEDS: LACTULOSE 20 GM/30 ML UDC (FOR ORAL USE ONLY) PO SCH ×3 (14:39→22:40)
[2018-05-17] MEDS: diazePAM 5 MG TABLET PO PRN (18:19)
[2018-05-17] MEDS: THIAMINE HCL 100 MG TABLET (FP) PO SCH (22:39)
[2018-05-17] MEDS: BENZTROPINE MESYLATE 1 MG TABLET (FP) PO SCH (22:39)
[2018-05-17] MEDS: QUEtiapine FUMARATE 100 MG TABLET (FP) PO SCH (22:39)
[2018-05-18] MEDS: diazePAM 5 MG TABLET PO SCH ×2 (10:21→22:20)
[2018-05-18] MEDS: PRENATAL VITAMINS W/ FOLIC ACID TABLET (FP) PO SCH (10:22)
[2018-05-18] MEDS: METHADONE HCL 5 MG TABLET (FOR DETOX USE ONLY) PO SCH (10:22)
[2018-05-18] MEDS: LACTULOSE 20 GM/30 ML UDC (FOR ORAL USE ONLY) PO SCH ×4 (10:22→22:20)
[2018-05-18] MEDS: NICOTINE 14 MG/24 HOURS TOPICAL PATCH TD SCH (10:24)
[2018-05-18] MEDS ORDERED: ALBUTEROL SO4 8 GM HFA INHALER IH PRN (13:33)
[2018-05-18] MEDS ORDERED: ALBUTEROL SO4 0.083% IH SOL 2.5 MG/3 ML VIAL.NEB. NEB PRN (13:34)
--- NOTE | 2018-05-18 13:42 | PN ---
[facility] Progress Note (SOAP) Subjective: sweat tremor body aches joints pain trouble coughing productive flame ventolin + [id number] Objective: 05/18/18 13:38 Vital Signs Temperature 98.2 F 05/18/18 09:33 Pulse Rate 62 05/18/18 09:33 Respiratory Rate 18 05/18/18 09:33 Blood Pressure 127/71 05/18/18 09:33 O2 Sat by Pulse Oximetry (%) Laboratory Last Values WBC 4.9 K/mm3 (4.0-10.0) 05/16/18 07:00 RBC 4.23 M/mm3 (4.00-5.60) 05/16/18 07:00 Hgb 13.2 GM/dL (11.7-16.9) 05/16/18 07:00 Hct 39.3 % (35.4-49) 05/16/18 07:00 MCV 92.9 fl (80-96) 05/16/18 07:00 MCH 31.1 pg (25.7-33.7) 05/16/18 07:00 MCHC 33.5 g/dl (32.0-35.9) 05/16/18 07:00 RDW 14.4 % (11.9-15.9) 05/16/18 07:00 Plt Count 293 K/MM3 (134-434) 05/16/18 07:00 MPV 7.5 fl (7.5-11.1) D 05/16/18 07:00 Sodium 142 mmol/L (136-145) 05/16/18 07:00 Potassium 4.2 mmol/L (3.5-5.1) 05/16/18 07:00 Chloride 107 mmol/L (98-107) 05/16/18 07:00 Carbon Dioxide 29 mmol/L (21-32) 05/16/18 07:00 Anion Gap 6 MMOL/L (8-16) L 05/16/18 07:00 BUN 16 mg/dL (7-18) 05/16/18 07:00 Creatinine 0.9 mg/dL (0.55-1.3) 05/16/18 07:00 Creat Clearance w eGFR > 60 (>60) 05/16/18 07:00 Random Glucose 80 mg/dL (74-106) 05/16/18 07:00 Calcium 8.3 mg/dL (8.5-10.1) L 05/16/18 07:00 Total Bilirubin 0.3 mg/dL (0.2-1) 05/16/18 07:00 AST 29 U/L (15-37) 05/16/18 07:00 ALT 20 U/L (13-61) 05/16/18 07:00 Alkaline Phosphatase 99 U/L (45-117) 05/16/18 07:00 Ammonia 103.70 umol/L (11-32) H 05/18/18 07:00 Total Protein 6.4 g/dl (6.4-8.2) 05/16/18 07:00 Albumin 3.1 g/dl (3.4-5.0) L 05/16/18 07:00 Urine Color Cristy 05/16/18 00:06 Urine Appearance Clear 05/16/18 00:06 Urine pH 5.0 (5.0-8.0) 05/16/18 00:06 Ur Specific [place] 1.034 (1.010-1.035) 05/16/18 00:06 Urine Protein 2+ (NEGATIVE) H 05/16/18 00:06 Urine Glucose (UA) Negative (NEGATIVE) 05/16/18 00:06 Urine Ketones Negative (NEGATIVE) 05/16/18 00:06 Urine Blood Negative (NEGATIVE) 05/16/18 00:06 Urine Nitrite Negative (NEGATIVE) 05/16/18 00:06 Urine Bilirubin Negative (<2.0 mg/dL) 05/16/18 00:06 Urine Urobilinogen 4.0 e.u/dl mg/dL (0.2-1.0) 05/16/18 00:06 Ur Leukocyte Esterase Negative (NEGATIVE) 05/16/18 00:06 Urine WBC (Auto) 5 /hpf (3-5) 05/16/18 00:06 Urine RBC (Auto) 1 /hpf (0-3) 05/16/18 00:06 Hyaline Casts 1 /lpf 05/16/18 00:06 Urine Mucus Moderate 05/16/18 00:06 RPR Titer Nonreactive (NONREACTIVE) 05/16/18 07:00 HIV 1&2 Antibody Screen Negative 05/16/18 07:00 HIV P24 Antigen Negative 05/16/18 07:00 lab noted ammonia elevation 05/18/18 13:40 continue lactulose Assessment: 05/18/18 13:40 withdrawal sx continue lactulose ammonia level 05/19/18 Plan: continue detox continue lactulose repeat ammonia serum level
[2018-05-18] MEDS: guaiFENesin/D-METHORPHAN HB 10 ML UNIT-DOSE CUPS PO PRN (15:53)
[2018-05-18] MEDS: THIAMINE HCL 100 MG TABLET (FP) PO SCH (22:20)
[2018-05-18] MEDS: BENZTROPINE MESYLATE 1 MG TABLET (FP) PO SCH (22:21)
[2018-05-18] MEDS: QUEtiapine FUMARATE 100 MG TABLET (FP) PO SCH (22:21)
[2018-05-19] MEDS ORDERED: diazePAM 5 MG TABLET PO SCH (10:00)
[2018-05-19] MEDS ORDERED: METHADONE HCL 10 MG TABLET (FOR DETOX USE ONLY) PO SCH (10:00)
[2018-05-19] MEDS: LACTULOSE 20 GM/30 ML UDC (FOR ORAL USE ONLY) PO SCH ×4 (10:13→22:57)
[2018-05-19] MEDS: PRENATAL VITAMINS W/ FOLIC ACID TABLET (FP) PO SCH (10:14)
[2018-05-19] MEDS: NICOTINE 14 MG/24 HOURS TOPICAL PATCH TD SCH (10:15)
--- NOTE | 2018-05-19 11:30 | PN ---
[facility] Progress Note (SOAP) Subjective: low back pain sweats achy joints cough with phlegm Objective: 05/19/18 11:29 Vital Signs Temperature 97.8 F 05/19/18 09:30 Pulse Rate 56 L 05/19/18 09:30 Respiratory Rate 18 05/19/18 09:30 Blood Pressure 128/75 05/19/18 09:30 O2 Sat by Pulse Oximetry (%) aaox3 ambulating however pt will require a cane for assist no acute distress Assessment: 05/19/18 11:29 mild withdrawal sx Plan: continue detox increase fluids z-pack ordered cane lidocaine patch encouraged to ask for motrin prn d/c in am
[2018-05-19] MEDS ORDERED: AZITHROMYCIN 250 MG TABLET PO ONE (12:15)
[2018-05-19] MEDS ORDERED: LIDOCAINE 5% TOPICAL PATCH TP ONE (12:15)
[2018-05-19] MEDS ORDERED: LIDOCAINE PATCH REMOVAL MC SCH (22:00)
[2018-05-19] MEDS: IBUPROFEN 400 MG TABLET (FP) PO PRN (22:55)
[2018-05-19] MEDS: BENZTROPINE MESYLATE 1 MG TABLET (FP) PO SCH (22:56)
[2018-05-19] MEDS: QUEtiapine FUMARATE 100 MG TABLET (FP) PO SCH (22:56)
[2018-05-19] MEDS: THIAMINE HCL 100 MG TABLET (FP) PO SCH (22:57)
[2018-05-20] MEDS ORDERED: METHADONE HCL 5 MG TABLET (FOR DETOX USE ONLY) PO SCH (06:00)
[2018-05-20 09:51] VITALS: BP 122/76; PULSE 93; TEMP 98.2
[2018-05-20] MEDS ORDERED: AZITHROMYCIN 250 MG TABLET PO SCH (10:00)
[2018-05-20] MEDS: PRENATAL VITAMINS W/ FOLIC ACID TABLET (FP) PO SCH (10:01)
[2018-05-20] MEDS: NICOTINE 14 MG/24 HOURS TOPICAL PATCH TD SCH (10:02)
[2018-05-20] MEDS: LACTULOSE 20 GM/30 ML UDC (FOR ORAL USE ONLY) PO SCH (10:02)
--- NOTE | 2018-05-20 12:02 | DS ---
[facility] Detox Discharge Summary Admission Date: 05/15/18 - History Present History: Alcohol Dependence - Physical Exam Results Vital Signs: Vital Signs Temperature 98.2 F 05/20/18 09:51 Pulse Rate 93 H 05/20/18 09:51 Respiratory Rate 16 05/20/18 09:51 Blood Pressure 122/76 05/20/18 09:51 O2 Sat by Pulse Oximetry (%) Pertinent Admission Physical Exam Findings: PATIENT COMPLETED DETOX WITHOUT ADVERSE EVENT. PATIENT ACCEPTED REHAB REFERRAL TO [facility]. PATIENT CLINICALLY STABLE AND DENIES SI/HI. PATIENT ENCOURAGED TO COMPLETE REHAB TO PREVENT RELAPSE. - Treatment Hospital Course: Detox Protocol Followed, Detoxed Safely, Responded well, Discharged Condition Good, Rehab Referral Accepted Patient has Accepted a Rehab Referral to: [facility] - Medication Discharge Medications: Ambulatory Orders Quetiapine Fumarate [Seroquel -] 300 mg PO HS 05/15/18 Benztropine Mesylate [Cogentin -] 1 mg PO HS 05/16/18 - AMA Did Patient Leave Against Medical Advice: No
== END 2018-05-20 11:25 | disposition other institution (70) | DRG 773 ==
LOC: YASAS 16:03 → Y6N 18:09
PROC: HZ2ZZZZ Detoxification Services for Substance Abuse Treatment (ICD-10-PCS; principal; 2018-05-15)
DX: F11.23 Opioid dependence with withdrawal (principal); F10.230 Alcohol dependence with withdrawal, uncomplicated; F14.20 Cocaine dependence, uncomplicated; F31.9 Bipolar disorder, unspecified; F19.24 Other psychoactive substance dependence with psychoactive substance-induced mood disorder; F32.9 Major depressive disorder, single episode, unspecified; F25.9 Schizoaffective disorder, unspecified; R76.11 Nonspecific reaction to tuberculin skin test without active tuberculosis; Z91.5 Personal history of self-harm
CPT/HCPCS: 36415; 71045-TC-FY; 80053; 81003; 81015; 82140; 85027; 86593; 87389; 93005; 93010; 94640

== ENCOUNTER 2018-05-20 11:27 | Inpatient (IN) | payer OTHER ==
[2018-05-20] MEDS ORDERED: P-EPHED 60MG/TRIPROLIDI 2.5MG TABLET PO PRN (11:56)
[2018-05-20] MEDS ORDERED: MENTHOL/PHENOL 1 EACH UD MM PRN (11:56)
[2018-05-20] MEDS ORDERED: LOPERAMIDE HCL 2 MG CAPSULE PO PRN (11:56)
[2018-05-20] MEDS ORDERED: MAGNESIUM CITRATE 300 ML BOTTLE PO PRN (11:56)
[2018-05-20] MEDS ORDERED: hydrOXYzine PAMOATE 50 MG CAPSULE (FP) PO PRN (11:56)
[2018-05-20] MEDS ORDERED: MAGNESIUM HYDROX 2400MG/30ML ORAL SUSPENSION 30 ML CUP PO PRN (11:56)
[2018-05-20] MEDS ORDERED: MAG HYDROX/AL HYDROX/SIMETH 30 ML UNIT-DOSE CUP PO PRN (11:56)
--- NOTE | 2018-05-20 11:58 | HP ---
[facility] Rehab Assess/Revision - Admission History Admitted to Rehab from: [facility] - Findings Detox History & Physical reviewed: Yes Concur with findings: Yes Inpatient Rehab Admission - Initial Determination Are CD services needed?: Yes Free of communicable disease: Yes Not in need of hospitalization: Yes - Rehab Admission Criteria Previous failed treatment: Yes Poor recovery environment: Yes Comorbidities: Yes Lacks judgement: Yes Patient is meeting Inpatient Rehab admission criteria:: Yes
[2018-05-20] MEDS: IBUPROFEN 400 MG TABLET (FP) PO PRN (14:36)
[2018-05-20] MEDS: guaiFENesin/D-METHORPHAN HB 10 ML UNIT-DOSE CUPS PO PRN (14:37)
--- NOTE | 2018-05-20 20:11 | PN ---
[facility] Progress Note Note: Psychiatry Attending's note : Called, earlier, to enter order for seroquel. Patient is now transferred to [address] Completed detoxification on [place]. Chart reviewed. Confirmed dose of seroquel 100 mg po hs. Last dispensed on 05/19/18. Intervention : Seroquel 100 mg po hs Resumed for continuity of care. Titration, as per unit psychiatrist.
[2018-05-20] MEDS: THIAMINE HCL 100 MG TABLET (FP) PO SCH (21:23)
[2018-05-20] MEDS: QUEtiapine FUMARATE 100 MG TABLET (FP) PO SCH (21:23)
[2018-05-21] MEDS: guaiFENesin/D-METHORPHAN HB 10 ML UNIT-DOSE CUPS PO PRN (06:28)
[2018-05-21] MEDS: IBUPROFEN 400 MG TABLET (FP) PO PRN (06:29)
[2018-05-21] MEDS: PRENATAL VITAMINS W/ FOLIC ACID TABLET (FP) PO SCH (09:38)
[2018-05-21] MEDS ORDERED: FLU VACCINE QUAD 60 MCG/0.5 ML (MDV 18-19) IM ONE (12:15)
[2018-05-21] MEDS: MELATONIN 5 MG TABLETS PO PRN (21:21)
[2018-05-21] MEDS: QUEtiapine FUMARATE 100 MG TABLET (FP) PO SCH (21:21)
[2018-05-21] MEDS: THIAMINE HCL 100 MG TABLET (FP) PO SCH (21:21)
[2018-05-22] MEDS: IBUPROFEN 400 MG TABLET (FP) PO PRN ×2 (06:33→11:35)
[2018-05-22] MEDS: PRENATAL VITAMINS W/ FOLIC ACID TABLET (FP) PO SCH (10:22)
[2018-05-22] MEDS: LIDOCAINE 5% TOPICAL PATCH TP SCH (15:10)
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
[2018-05-22] MEDS: QUEtiapine FUMARATE 100 MG TABLET (FP) PO SCH (21:23)
[2018-05-22] MEDS: THIAMINE HCL 100 MG TABLET (FP) PO SCH (21:23)
[2018-05-22] MEDS: LIDOCAINE PATCH REMOVAL MC SCH (23:27)
[2018-05-23] MEDS: IBUPROFEN 400 MG TABLET (FP) PO PRN ×3 (07:51→21:18)
[2018-05-23] MEDS: LIDOCAINE 5% TOPICAL PATCH TP SCH (10:10)
[2018-05-23] MEDS: PRENATAL VITAMINS W/ FOLIC ACID TABLET (FP) PO SCH (10:10)
[2018-05-23] MEDS: ACETAMINOPHEN 325 MG TABLET (FP) PO PRN (10:11)
[2018-05-23] MEDS: MELATONIN 5 MG TABLETS PO PRN (21:17)
[2018-05-23] MEDS: QUEtiapine FUMARATE 100 MG TABLET (FP) PO SCH (21:17)
[2018-05-23] MEDS: LIDOCAINE PATCH REMOVAL MC SCH (21:17)
[2018-05-23] MEDS: THIAMINE HCL 100 MG TABLET (FP) PO SCH (21:17)
[2018-05-24] MEDS: ACETAMINOPHEN 325 MG TABLET (FP) PO PRN ×2 (00:03→14:44)
[2018-05-24] MEDS: LIDOCAINE 5% TOPICAL PATCH TP SCH (09:06)
[2018-05-24] MEDS: IBUPROFEN 400 MG TABLET (FP) PO PRN ×2 (09:06→21:26)
[2018-05-24] MEDS: PRENATAL VITAMINS W/ FOLIC ACID TABLET (FP) PO SCH (09:06)
[2018-05-24] MEDS: THIAMINE HCL 100 MG TABLET (FP) PO SCH (21:26)
[2018-05-24] MEDS: QUEtiapine FUMARATE 100 MG TABLET (FP) PO SCH (21:26)
[2018-05-24] MEDS: LIDOCAINE PATCH REMOVAL MC SCH (21:27)
[2018-05-25] MEDS: PRENATAL VITAMINS W/ FOLIC ACID TABLET (FP) PO SCH (10:32)
[2018-05-25] MEDS: LIDOCAINE 5% TOPICAL PATCH TP SCH (10:33)
[2018-05-25] MEDS: IBUPROFEN 400 MG TABLET (FP) PO PRN (10:33)
--- NOTE | 2018-05-25 12:34 | PN ---
S Progress Note Note: Psychiatric nurse practitioner note: Patient requesting an increase in Seroquel. Current dose is Seroquel 100mg. Patient is prescribed 300mg qhs. Medications were initially lowered in detox due to risk of falls and over sedation. Will increase Seroquel to 200mg with plan to titrate Seroquel 300mg.
[2018-05-25] MEDS: ACETAMINOPHEN 325 MG TABLET (FP) PO PRN (20:09)
[2018-05-25] MEDS: LIDOCAINE PATCH REMOVAL MC SCH (21:26)
[2018-05-25] MEDS: THIAMINE HCL 100 MG TABLET (FP) PO SCH (21:26)
[2018-05-25] MEDS: QUEtiapine FUMARATE 200 MG TABLET PO SCH (21:26)
[2018-05-26] MEDS: IBUPROFEN 400 MG TABLET (FP) PO PRN ×3 (08:05→21:24)
[2018-05-26] MEDS: LIDOCAINE 5% TOPICAL PATCH TP SCH (10:13)
[2018-05-26] MEDS: PRENATAL VITAMINS W/ FOLIC ACID TABLET (FP) PO SCH (10:13)
[2018-05-26] MEDS: ACETAMINOPHEN 325 MG TABLET (FP) PO PRN (10:13)
--- NOTE | 2018-05-26 17:33 | PN ---
MARIKA Progress Note Note: Psychiatric nurse practitioner note: Patient satisified with current seroquel dose of 200mg. As per pharmacy claims patient is prescribed seroquel 300mg. Patient to be maintained on seroquel 200mg as per his request. Cogentin 2mg qhs ordered due to tardive dyskinesia. Patient is currently prescribed cogentin 2mg by outpatient psychiatrist. Verbal consent given.
[2018-05-26] MEDS: BENZTROPINE MESYLATE 1 MG TABLET (FP) PO SCH (21:24)
[2018-05-26] MEDS: THIAMINE HCL 100 MG TABLET (FP) PO SCH (21:24)
[2018-05-26] MEDS: LIDOCAINE PATCH REMOVAL MC SCH (21:24)
[2018-05-26] MEDS: QUEtiapine FUMARATE 200 MG TABLET PO SCH (21:24)
[2018-05-27] MEDS: ACETAMINOPHEN 325 MG TABLET (FP) PO PRN (04:11)
[2018-05-27] MEDS: PRENATAL VITAMINS W/ FOLIC ACID TABLET (FP) PO SCH (09:44)
[2018-05-27] MEDS: LIDOCAINE 5% TOPICAL PATCH TP SCH (09:44)
[2018-05-27] MEDS: IBUPROFEN 400 MG TABLET (FP) PO PRN ×2 (09:45→21:21)
[2018-05-27] MEDS: QUEtiapine FUMARATE 200 MG TABLET PO SCH (21:20)
[2018-05-27] MEDS: THIAMINE HCL 100 MG TABLET (FP) PO SCH (21:20)
[2018-05-27] MEDS: BENZTROPINE MESYLATE 1 MG TABLET (FP) PO SCH (21:20)
[2018-05-27] MEDS: LIDOCAINE PATCH REMOVAL MC SCH (21:21)
[2018-05-28] MEDS: ACETAMINOPHEN 325 MG TABLET (FP) PO PRN (00:31)
[2018-05-28] MEDS: LIDOCAINE 5% TOPICAL PATCH TP SCH (09:48)
[2018-05-28] MEDS: PRENATAL VITAMINS W/ FOLIC ACID TABLET (FP) PO SCH (09:48)
[2018-05-28] MEDS: IBUPROFEN 400 MG TABLET (FP) PO PRN ×2 (09:48→21:22)
[2018-05-28] MEDS: THIAMINE HCL 100 MG TABLET (FP) PO SCH (21:22)
[2018-05-28] MEDS: QUEtiapine FUMARATE 200 MG TABLET PO SCH (21:22)
[2018-05-28] MEDS: BENZTROPINE MESYLATE 1 MG TABLET (FP) PO SCH (21:23)
[2018-05-28] MEDS: LIDOCAINE PATCH REMOVAL MC SCH (21:23)
[2018-05-29] MEDS: PRENATAL VITAMINS W/ FOLIC ACID TABLET (FP) PO SCH (11:02)
[2018-05-29] MEDS: LIDOCAINE 5% TOPICAL PATCH TP SCH (11:03)
[2018-05-29] MEDS: QUEtiapine FUMARATE 200 MG TABLET PO SCH (21:27)
[2018-05-29] MEDS: IBUPROFEN 400 MG TABLET (FP) PO PRN (21:28)
[2018-05-29] MEDS: BENZTROPINE MESYLATE 1 MG TABLET (FP) PO SCH (21:29)
[2018-05-29] MEDS: LIDOCAINE PATCH REMOVAL MC SCH (21:30)
[2018-05-29] MEDS: THIAMINE HCL 100 MG TABLET (FP) PO SCH (21:30)
[2018-05-30] MEDS: LIDOCAINE 5% TOPICAL PATCH TP SCH ×2 (10:46→17:30)
[2018-05-30] MEDS: PRENATAL VITAMINS W/ FOLIC ACID TABLET (FP) PO SCH (10:46)
[2018-05-30] MEDS: IBUPROFEN 400 MG TABLET (FP) PO PRN ×2 (10:47→21:36)
[2018-05-30] MEDS: ACETAMINOPHEN 325 MG TABLET (FP) PO PRN (17:25)
[2018-05-30] MEDS: QUEtiapine FUMARATE 200 MG TABLET PO SCH (21:35)
[2018-05-30] MEDS: THIAMINE HCL 100 MG TABLET (FP) PO SCH (21:35)
[2018-05-30] MEDS: BENZTROPINE MESYLATE 1 MG TABLET (FP) PO SCH (22:36)
[2018-05-30] MEDS: LIDOCAINE PATCH REMOVAL MC SCH (22:37)
[2018-05-31] MEDS: LIDOCAINE 5% TOPICAL PATCH TP SCH (10:20)
[2018-05-31] MEDS: PRENATAL VITAMINS W/ FOLIC ACID TABLET (FP) PO SCH (10:20)
[2018-05-31] MEDS: IBUPROFEN 400 MG TABLET (FP) PO PRN ×2 (10:21→21:27)
[2018-05-31] MEDS: QUEtiapine FUMARATE 200 MG TABLET PO SCH (21:26)
[2018-05-31] MEDS: THIAMINE HCL 100 MG TABLET (FP) PO SCH (21:26)
[2018-05-31] MEDS: BENZTROPINE MESYLATE 1 MG TABLET (FP) PO SCH (22:29)
[2018-05-31] MEDS: LIDOCAINE PATCH REMOVAL MC SCH (22:29)
[2018-06-01] MEDS: LIDOCAINE 5% TOPICAL PATCH TP SCH (10:02)
[2018-06-01] MEDS: PRENATAL VITAMINS W/ FOLIC ACID TABLET (FP) PO SCH (10:03)
[2018-06-01] MEDS: IBUPROFEN 400 MG TABLET (FP) PO PRN ×2 (10:04→21:37)
[2018-06-01] MEDS: THIAMINE HCL 100 MG TABLET (FP) PO SCH (21:35)
[2018-06-01] MEDS: QUEtiapine FUMARATE 200 MG TABLET PO SCH (21:35)
[2018-06-01] MEDS: LIDOCAINE PATCH REMOVAL MC SCH (21:37)
[2018-06-01] MEDS: BENZTROPINE MESYLATE 1 MG TABLET (FP) PO SCH (21:38)
[2018-06-02 07:12] VITALS: BP 101/65; PULSE 77; TEMP 97.5
[2018-06-02] MEDS: LIDOCAINE 5% TOPICAL PATCH TP SCH (09:25)
[2018-06-02] MEDS: PRENATAL VITAMINS W/ FOLIC ACID TABLET (FP) PO SCH (09:25)
[2018-06-02] MEDS: IBUPROFEN 400 MG TABLET (FP) PO PRN (09:27)
--- NOTE | 2018-06-02 09:50 | PN ---
Psychiatric Progress Note Vital Signs: Vital Signs Period Temp Pulse Resp BP Sys/Garcia Pulse Ox Last 24 Hr 97.5 F 77 18-18 101/65 Date of Session: 06/02/18 Chief Complaint:: "Discharge" HPI: Patient admitted to rehab for alcohol, cocaine, opioid and marijuana dependence. Current Medications: Active Medications Generic Name Dose Route Start Last Admin Trade Name Freq PRN Reason Stop Dose Admin Acetaminophen 650 mg 05/20/18 11:56 05/30/18 17:25 Tylenol - PO 650 mg Q4H PRN Administration FEVER Al Hydroxide/Mg Hydroxide 30 ml 05/20/18 11:56 Mylanta Oral Suspension - PO Q6H PRN DYSPEPSIA Benztropine Mesylate 2 mg 05/26/18 22:00 06/01/18 21:38 Cogentin - PO Not Given HS BETTY Eucalyptus/Menthol/Phenol/Sorbitol 1 each 05/20/18 11:56 Cepastat Lozenge - MM Q4H PRN SORE THROAT Guaifenesin 10 ml 05/20/18 11:56 05/21/18 06:28 Robitussin Dm - PO 10 ml Q6H PRN Administration COUGH Hydroxyzine Pamoate 50 mg 05/20/18 11:56 Vistaril - PO Q4H PRN AGITATION Ibuprofen 400 mg 05/20/18 11:56 06/02/18 09:27 Motrin - PO 400 mg Q6H PRN Administration Pain Level 4-6 Lidocaine 2 patch 05/30/18 16:45 06/02/18 09:25 Lidoderm Patch - TP 2 patch DAILY BETTY Administration Loperamide HCl 4 mg 05/20/18 11:56 Imodium - PO Q6H PRN DIARRHEA Magnesium Citrate 300 ml 05/20/18 11:56 Citroma - PO Q48H PRN CONSTIPATION Magnesium Hydroxide 30 ml 05/20/18 11:56 Milk Of Magnesia - PO DAILY PRN CONSTIPATION Melatonin 5 mg 05/20/18 22:00 05/23/18 21:17 Melatonin PO 5 mg HS PRN Administration INSOMNIA Miscellaneous 2 each 05/30/18 22:00 06/01/18 21:37 Lidoderm Patch Removal MC 2 each DAILY@2200 BETTY Administration Multivit/Folic Acid/Iron 1 tab 05/21/18 10:00 06/02/18 09:25 Vitamins ([facility]) - PO 1 tab DAILY BETTY Administration Pseudoephedrine/Triprolidine 1 combo 05/20/18 11:56 Actifed - PO TID PRN NASAL CONGESTION Quetiapine Fumarate 200 mg 05/25/18 22:00 06/01/18 21:35 Seroquel - PO 200 mg HS BETTY Administration Thiamine HCl 100 mg 05/20/18 22:00 06/01/18 21:35 Vitamin B1 - PO 100 mg HS BETTY Administration Provider note:: Patient able to complete the rehab program on 5N on 06/02/18. Patient has met his treatment goals and will continue to address additional issues at the [facility] outpatient program. He reports learning alot from the rehab program. He realizes the importance of changing his behavior and the need for more structure in his life. A 30 day prescription of Seroquel 300mg qhs + Cogentin 2mg qhs was electronically sent to patient's pharmacy at [facility] at [address] [place] [address]. Patient is stable for discharge on 06/02/18. Total face to face time:: 35 Psychiatric Treatment Plan - Problem List (1) Alcohol dependence Current Visit: Yes (2) Cocaine dependence Current Visit: Yes (3) Insomnia Current Visit: Yes (4) Opioid dependence Current Visit: Yes (5) Substance induced mood disorder Current Visit: Yes (6) Schizoaffective disorder Current Visit: Yes (7) Nicotine dependence Current Visit: Yes Qualifiers: Nicotine product type: cigarettes Substance use status: in withdrawal Qualified Code(s): F17.213 - Nicotine dependence, cigarettes, with withdrawal
--- NOTE | 2018-06-02 10:03 | PN ---
S Progress Note (SOAP) Subjective: States going home today. Will be starting [facility] for opiate use disorder. C/o continued back and shoulder pain and requesting prescription for ibuprofen for pain. Objective: Alert and orientred x 3. Vital Signs 06/02/18 06/02/18 03:30 07:11 Temperature 97.5 F L Pulse Rate 77 Respiratory 18 18 Rate Blood Pressure 101/65 Laboratory Last Values Ammonia 41.50 umol/L (11-32) H 06/01/18 09:40 Labs reviewed. Assessment: Decreasing serum ammonia level. Remission poly-substance use Arthritis. Plan: Encouage f/u at [facility] Discuss effects of alcohol on liver and serum ammonia level Encourage continued smoking cessation. Prescription for Nicotine patch and gum submitted to patient home pharmacy. Discharge prescription for Ibuprofen submitted to patient home pharmacy. Encourage continued f/u w/ PCP and to give copy of labs and discharge papers.
== END 2018-06-02 10:13 | disposition home or self-care (01) | DRG 772 ==
LOC: YASAS 11:27 → Y5N 11:29
PROVIDERS: ADMIT Psychiatry & Neurology Psychiatry; ATTEND Psychiatry & Neurology Psychiatry
PROC: HZ42ZZZ Group Counseling for Substance Abuse Treatment, Cognitive-Behavioral (ICD-10-PCS; principal; 2018-05-20)
DX: F11.20 Opioid dependence, uncomplicated (principal); F10.20 Alcohol dependence, uncomplicated; F14.20 Cocaine dependence, uncomplicated; F12.20 Cannabis dependence, uncomplicated; F17.213 Nicotine dependence, cigarettes, with withdrawal; F19.24 Other psychoactive substance dependence with psychoactive substance-induced mood disorder; F25.9 Schizoaffective disorder, unspecified; G47.00 Insomnia, unspecified
CPT/HCPCS: 82140

== ENCOUNTER 2018-10-27 10:54 | Inpatient (IN) | payer OTHER ==
[2018-10-27 11:47] VITALS: BMI 19.0
--- NOTE | 2018-10-27 12:43 | HP ---
CIWA Score Nausea/Vomitin Muscle Tremors: 2 Anxiety: 2 Agitation: 2 Paroxysmal Sweats: 1-Minimal Palms Moist Orientation: 0-Oriented Tacttile Disturbances: 1-Very Mild Itch/Numbness Auditory Disturbances: 1-Very Mild Visual Disturbances: 0-None Headache: 2-Mild CIWA-Ar Total Score: 13 - Admission Criteria OASAS Guidelines: Admission for Medically Managed Detox: Requires at least one of the followin. CIWA greater than 12 2. Seizures within the past 24 hours 3. Delirium tremens within the past 24 hours 4. Hallucinations within the past 24 hours 5. Acute intervention needed for co occurring medical disorder 6. Acute intervention needed for co occurring psychiatric disorder 7. Severe withdrawal that cannot be handled at a lower level of care (continued vomiting, continued diarrhea, abnormal vital signs) requiring intravenous medication and/or fluids 8. Admission ROS S - HPI Chief Complaint: i need help to stop drinking alcohol and cocaine Allergies/Adverse Reactions: Allergies Allergy/AdvReac Type Severity Reaction Status Date / Time No Known Allergies Allergy Verified 10/27/18 11:27 History of Present Illness: this 58 years old male with alcohol and cocaine dependence,seeking detox, withdrawal symptom mmtp 50 mgs/day,last medicated today multiple admissions in detox and rehab but keep relapsing last treatment detox [facility] 05/15/18 to 05/20/18 ,rehab 05/20/18 to 06/02/18 weight loss nicotine dependence 1 pack/requesting nicotine patch cane for ambulatory aid 2 years for balance arthritis bipolar disorder,manic depressive longest sobriety 1 year plan for rehab after detox - Ebola screening Have you traveled outside of the country in the last 21 days: No (N) Have you had contact with anyone from an Ebola affected area: No Do you have a fever: No - Review of Systems Constitutional: Loss of Appetite, Malaise, Night Sweats, Changes in sleep, Weakness, Unintentional Wgt. Loss EENT: reports: Nose Congestion Respiratory: reports: No Symptoms reported, Other (coughing) Cardiac: reports: No Symptoms Reported GI: reports: Nausea, Poor Appetite, Abdominal cramping : reports: No Symptoms Reported Musculoskeletal: reports: Back Pain, Muscle Pain Integumentary: reports: Dryness Neuro: reports: Headache, Tremors Endocrine: reports: No Symptoms Reported Hematology: reports: No Symptoms Reported Psychiatric: reports: No Sypmtoms Reported, Judgement Intact, Mood/Affect Appropiate, Orientated x3, other (bipolar disorder,manic depressive) Other Systems: Reviewed and Negative Patient History - Patient Medical History Hx Anemia: No Hx Asthma: No Hx Chronic Obstructive Pulmonary Disease (COPD): No Hx Cancer: No Hx Cardiac Disorders: No Hx Congestive Heart Failure: No Hx Hypertension: No Hx Hypercholesterolemia: No Hx Pacemaker: No Hx Seizures: Yes (last 2017) Hx Dementia: No Hx Diabetes: No Hx Gastrointestinal Disorders: No Hx Genitourinary Disorders: No Hx Sexually Transmitted Disorders: No Hx Renal Disease (ESRD): No Hx Thyroid Disease: No Hx Human Immunodeficiency Virus (HIV): No (Negative 2017) Hx Hepatitis C: No Hx Depression: Yes Hx Suicide Attempt: No Hx Bipolar Disorder: Yes (Not on medication) Hx Schizophrenia: Yes (SCIZOAFFECTIVE DISORDER) Other Medical History: no suicidal,no homicidal - Patient Surgical History Past Surgical History: No Hx Neurologic Surgery: No Hx Cataract Extraction: No Hx Cardiac Surgery: No Hx Lung Surgery: No Hx Breast Surgery: No Hx Breast Biopsy: No Hx Abdominal Surgery: No Hx Appendectomy: No Hx Cholecystectomy: No Hx Genitourinary Surgery: No Hx Section: No Hx Orthopedic Surgery: No Anesthesia Reaction: No - PPD History Previous Implant?: Yes Documented Results: Positive w/proof Implanted On Prior [facility] Admission?: No Results: cxr 05/16/18 PPD to be Administered?: No - Smoking Cessation Smoking history: Current every day smoker Have you smoked in the past 12 months: Yes Aproximately how many cigarettes per day: 10 Hx Chewing Tobacco Use: No Initiated information on smoking cessation: Yes 'Breaking Loose' booklet given: 10/27/18 - Substance & Tx. History Hx Alcohol Use: Yes Hx Substance Use: Yes Substance Use Type: Alcohol, Cocaine Hx Substance Use Treatment: Yes ([facility] 05/15/18 05/20/18,rehab 05/20/18 to ) - Substances abused Alcohol Substance route: Oral Frequency: Daily Amount used: 1 PACK BEER Age of first use: 17 Date of last use: 10/27/18 Cocaine Substance route: Smoking Frequency: Daily Amount used: $150 Age of first use: 17 Date of last use: 10/27/18 Family Disease History - Family Disease History Family Disease History: CA: Father (colon ca, age 63), Mother (unknown , age 73 ) Admission Physical Exam [facility] - Vital Signs Vital Signs: Vital Signs - 24 hr 10/27/18 10/27/18 11:28 12:18 Temperature 96.7 F L 97.2 F L Pulse Rate 58 L 58 L Respiratory 18 18 Rate Blood Pressure 101/68 101/68 - Physical General Appearance: Yes: Moderate Distress, Tremorous, Irritable HEENTM: Yes: Normal ENT Inspection, NAVDEEP, Pharynx Normal, Other (no teeth no denture) Respiratory: Yes: Lungs Clear, Normal Breath Sounds, No Respiratory Distress, Other (asthma) Neck: Yes: Within Normal Limits, Supple, Trachea in good position Breast: Yes: Within Normal Limits Cardiology: Yes: Within Normal Limits, Regular Rhythm, Regular Rate, S1, S2 Abdominal: Yes: Within Normal Limits, Normal Bowel Sounds, Non Tender, Flat, Soft Genitourinary: Yes: Within Normal Limits Back: Yes: Muscle Spasm Musculoskeletal: Yes: Back pain, Muscle Pain, Other (scoliosis) Extremities: Yes: Within Normal Limits, Normal Range of Motion, Tremors Neurological: Yes: stemhole borer II-XII NML intact, Fully Oriented, Alert, Motor Strength 5/5 Integumentary: Yes: Dry Lymphatic: Yes: Within Normal Limits - Diagnostic (1) Alcohol dependence with withdrawal, uncomplicated Current Visit: No Status: Chronic (2) Cocaine dependence Current Visit: Yes Status: Chronic (3) Dehydration Current Visit: No Status: Acute (4) Nicotine dependence Current Visit: Yes Status: Chronic Qualifiers: Nicotine product type: cigarettes Substance use status: uncomplicated Qualified Code(s): F17.210 - Nicotine dependence, cigarettes, uncomplicated (5) Bipolar disorder (manic depression) Current Visit: No Status: Chronic Qualifiers: Active/Remission status: remission status unspecified Qualified Code(s): F31.9 - Bipolar disorder, unspecified (6) PPD positive Current Visit: No Status: Chronic (7) Schizoaffective disorder Current Visit: Yes Status: Chronic (8) Scoliosis Current Visit: Yes Status: Acute (9) Asthma Current Visit: Yes Status: Acute (10) Bronchitis Current Visit: Yes Status: Acute Cleared for Admission [facility] - Detox or Rehab [facility] Level of Care: Medically Managed Detox Regimen/Protocol: Librium Breathalyzer - Breathalyzer Breathalyzer: 0 Urine Drug Screen - Test Device Lot number: [id number] Expiration date: 06/09/20 - Control Is test valid?: Yes - Results Drug screen NEGATIVE: No Urine drug screen results: CINDA-Cocaine, MTD-Methadone, BZO-Benzodiazepines Inpatient Rehab Admission - Rehab Decision to Admit Inpatient rehab admission?: No
[2018-10-27] MEDS ORDERED: BISMUTH SUBSALICYLATE 524 MG/30 ML UD PO PRN (12:53)
[2018-10-27] MEDS ORDERED: MAGNESIUM HYDROX 2400MG/30ML ORAL SUSPENSION 30 ML CUP PO PRN (12:53)
[2018-10-27] MEDS ORDERED: hydrOXYzine PAMOATE 25 MG CAPSULE (FP) PO PRN (12:53)
[2018-10-27] MEDS ORDERED: MAG HYDROX/AL HYDROX/SIMETH 30 ML UNIT-DOSE CUP PO PRN (12:53)
[2018-10-27] MEDS ORDERED: MAGNESIUM CITRATE 300 ML BOTTLE PO PRN (12:53)
[2018-10-27] MEDS ORDERED: ACETAMINOPHEN 325 MG TABLET (FP) PO PRN ×2 (12:53)
[2018-10-27] MEDS ORDERED: IBUPROFEN 400 MG TABLET (FP) PO PRN (12:53)
[2018-10-27] MEDS ORDERED: MENTHOL/PHENOL 1 EACH UD MM PRN (12:53)
[2018-10-27] MEDS ORDERED: chlordiazePOXIDE HCL 10 MG CAPSULE PO PRN (12:56)
[2018-10-27] MEDS ORDERED: ALBUTEROL SO4 8 GM HFA INHALER IH PRN (13:03)
[2018-10-27] MEDS: SULFAMETHOXAZOLE/TRIMETHOPRIM 800MG/160MG D.S. TABLET PO SCH ×2 (13:58→22:33)
--- NOTE | 2018-10-27 14:15 | CONSULT ---
[facility] Psychiatric Consult - Data Date of interview: 10/27/18 Admission source: [facility] Identifying data: This is one of multiple admissions to [facility] for this 58 y/ o AA male self-referred for detoxification (cocaine, alcohol). Examined on . Patient is , a father of three, domiciled, unemployed (disabled ) and supported on SSI benefits. Substance Abuse History: Confirmed by the patient in this interview. Details in current [facility] report : Smoking history: Current every day smoker. Have you smoked in the past 12 months: Yes. Aproximately how many cigarettes per day: 10. Hx Chewing Tobacco Use: No. Initiated information on smoking cessation: Yes. 'Breaking Loose' booklet given: 10/27/18. - Substance & Tx. History. Hx Alcohol Use: Yes. Hx Substance Use: Yes. Substance Use Type: Alcohol, Cocaine. Hx Substance Use Treatment: Yes ([facility] 05/15/18 05/20/18,rehab 05/20/18 to 06/02/18). - Substances abused. Alcohol. Substance route: Oral. Frequency: Daily. Amount used: 1 PACK BEER. Age of first use: 17. Date of last use: 10/27/18. Cocaine. Substance route: Smoking. Frequency: Daily. Amount used: $150. Age of first use: 17. Date of last use: 10/27/18 Medical History: History of withdrawal-related seizures, arthritis, chronic lumbar pain and unsteady gait. Patient uses a cane for ambulation. Psychiatric History: Patient reports a history of multiple psychiatric hospitalizations ([facility], [facility]). Reportedly diagnosed with " Bipolar Disorder and Schizophrenia ". Patient states that he is prescribed seroquel + cogentin. Sees a psychiatrist at the [facility] in [facility]. Known history of one suicide attempt via jumping into oncoming traffic ( years ago). Currently on methadone maintenance (50 mg/day). Physical/Sexual Abuse/Trauma History: Patient denies. Additional Comment: Urine drug screen results: CINDA-Cocaine, MTD-Methadone, BZO- Benzodiazepines. Noted. Mental Status Exam - Mental Status Exam Alert and Oriented to: Place, Person Cognitive Function: Impaired (due to sedation from medications) Patient Appearance: Well Groomed Mood: Hopeful Affect: Constricted Patient Behavior: Sedated, Fatigued, Cooperative Speech Pattern: Delayed, Slurred Voice Loudness: Moderately Soft/Quiet Thought Process: Goal Oriented (able to follow commands, eat his meal, verbalizes his needs) Thought Disorder: Not Present Hallucinations: Denies Suicidal Ideation: Denies Homicidal Ideation: Denies Insight/Judgement: Poor Sleep: Well Appetite: Fair Gait/Station: Other (unsteady gait) Psychiatric Findings - Problem List ([place] 1, 2,3) (1) Alcohol dependence Current Visit: Yes Status: Chronic (2) Opioid dependence on agonist therapy Current Visit: Yes Status: Chronic (3) Cocaine dependence Current Visit: Yes Status: Chronic (4) Nicotine dependence Current Visit: Yes Status: Chronic Qualifiers: Nicotine product type: cigarettes Substance use status: uncomplicated Qualified Code(s): F17.210 - Nicotine dependence, cigarettes, uncomplicated (5) Schizoaffective disorder Current Visit: Yes Status: Chronic (6) Substance induced mood disorder Current Visit: Yes Status: Chronic (7) Sedated Current Visit: Yes Status: Acute - Initial Treatment Plan Initial Treatment Plan: Falls precautions. Support. Detoxification. Hold seroquel at this time. Observation.
[2018-10-27 17:17] LABS: HEMOGLOBIN 12.7 GM/dL (11.7-16.9); MCH 30.9 pg (25.7-33.7); MCHC 33.5 g/dl (32.0-35.9); MEAN CELL VOLUME 92.4 fl (80-96); PLATELET COUNT 224 K/MM3 (134-434); RBC 4.11 M/mm3 (4.00-5.60); RDW 14.5 % (11.9-15.9); WHITE BLOOD COUNT 4.7 K/mm3 (4.0-10.0)
[2018-10-27 17:31] LABS: ALBUMIN 3.5 g/dl (3.4-5.0); ALK PHOS 90 U/L (45-117); ANION GAP 4 MMOL/L (8-16); BILIRUBIN,TOTAL 0.4 mg/dL (0.2-1); BLOOD UREA NITROGEN 14 mg/dL (7-18); CALCIUM 8.5 mg/dL (8.5-10.1); CHLORIDE 106 mmol/L (98-107); CO2 26 mmol/L (21-32); CREATININE 0.7 mg/dL (0.55-1.3); GLUCOSE,RANDOM 106 mg/dL (74-106); SGOT/AST 34 U/L (15-37); SGPT/ALT 28 U/L (13-61); SODIUM 136 mmol/L (136-145); TOT PROT 6.9 g/dl (6.4-8.2)
[2018-10-27] MEDS: chlordiazePOXIDE HCL 25 MG CAPSULE PO SCH (22:33)
[2018-10-27] MEDS: THIAMINE HCL 100 MG TABLET (FP) PO SCH (22:33)
[2018-10-28 00:05] LABS: EPI CELLS 1.1 /HPF (0-5/HPF); PH,URINE 5.5 (5.0-8.0); URINE APPEARANCE CLEAR; URINE BACTERIA 5.1 /hpf (NEGATIVE); URINE BILIRUBIN NEGATIVE (NEGATIVE); URINE CASTS 2 /lpf (0-8); URINE COLOR DK YELLOW; URINE GLUCOSE (UA) NEGATIVE (NEGATIVE); URINE KETONE TRACE (NEGATIVE); URINE LEUK ESTERASE NEGATIVE (NEGATIVE); URINE NITRITE NEGATIVE (NEGATIVE); URINE PROTEIN 1+ (NEGATIVE); URINE RBC 2 /hpf (0-4); URINE WBC 6 /hpf (0-5)
[2018-10-28] MEDS ORDERED: METHADONE HCL 10 MG TABLET ONE (04:50)
[2018-10-28] MEDS ORDERED: METHADONE HCL 40 MG DISPERSABLE TABLET ONE (04:51)
[2018-10-28] MEDS: METHADONE 40 MG, METHADONE 10 MG PO SCH (05:46)
[2018-10-28] MEDS: chlordiazePOXIDE HCL 25 MG CAPSULE PO SCH ×2 (05:46→12:53)
[2018-10-28] MEDS ORDERED: METHADONE HCL 10 MG TABLET PO SCH (06:00)
[2018-10-28] MEDS: PRENATAL VITAMINS W/ FOLIC ACID TABLET (FP) PO SCH (10:22)
[2018-10-28] MEDS: SULFAMETHOXAZOLE/TRIMETHOPRIM 800MG/160MG D.S. TABLET PO SCH ×2 (10:22→22:03)
[2018-10-28] MEDS: METHOCARBAMOL 500 MG TABLET PO PRN (10:24)
--- NOTE | 2018-10-28 17:12 | PN ---
S CIWA - CIWA Score Nausea/Vomitin Muscle Tremors: None Anxiety: 0-No Anxiety, at Ease Agitation: 0-Normal Activity Paroxysmal Sweats: 2 Orientation: 0-Oriented Tacttile Disturbances: 2-Mild Itch/Numbness/Burn Auditory Disturbances: 1-Very Mild Visual Disturbances: 3-Moderate Sensitivity Headache: 0-None Present CIWA-Ar Total Score: 10 [facility] Progress Note (SOAP) Subjective: Sweating, Tremors, Body Aches. Objective: PATIENT A & O X 3, OBSERVED AMBULATING ON UNIT WITH ASSISTANCE OF A CANE. IN NO ACUTE DISTRESS. 10/28/18 17:11 Vital Signs Temperature 98.4 F 10/28/18 13:57 Pulse Rate 51 L 10/28/18 13:57 Respiratory Rate 18 10/28/18 13:57 Blood Pressure 110/74 10/28/18 13:57 O2 Sat by Pulse Oximetry (%) Laboratory Tests 10/27/18 10/27/18 10/27/18 13:20 13:20 13:20 WBC 4.7 RBC 4.11 Hgb 12.7 Hct 38.0 MCV 92.4 MCH 30.9 MCHC 33.5 RDW 14.5 Plt Count 224 D MPV 8.0 Sodium 136 Potassium 4.0 Chloride 106 Carbon Dioxide 26 Anion Gap 4 L BUN 14 Creatinine 0.7 Creat Clearance w eGFR 115.83 Random Glucose 106 Calcium 8.5 Total Bilirubin 0.4 AST 34 ALT 28 Alkaline Phosphatase 90 Total Protein 6.9 Albumin 3.5 Urine Color Urine Appearance Urine pH Ur Specific [place] Urine Protein Urine Glucose (UA) Urine Ketones Urine Blood Urine Nitrite Urine Bilirubin Urine Urobilinogen Ur Leukocyte Esterase Urine WBC (Auto) Urine RBC (Auto) Urine Casts (Auto) U Epithel Cells (Auto) Urine Bacteria (Auto) RPR Titer Nonreactive 10/27/18 21:24 WBC RBC Hgb Hct MCV MCH MCHC RDW Plt Count MPV Sodium Potassium Chloride Carbon Dioxide Anion Gap BUN Creatinine Creat Clearance w eGFR Random Glucose Calcium Total Bilirubin AST ALT Alkaline Phosphatase Total Protein Albumin Urine Color Dk yellow Urine Appearance Clear Urine pH 5.5 Ur Specific [place] 1.035 Urine Protein 1+ H Urine Glucose (UA) Negative Urine Ketones Trace H Urine Blood Negative Urine Nitrite Negative Urine Bilirubin Negative Urine Urobilinogen 1.0 Ur Leukocyte Esterase Negative Urine WBC (Auto) 6 Urine RBC (Auto) 2 Urine Casts (Auto) 2 U Epithel Cells (Auto) 1.1 Urine Bacteria (Auto) 5.1 RPR Titer LABS NOTED. Assessment: 10/28/18 17:12 WITHDRAWAL SYMPTOMS. Plan: CONTINUE DETOX.
[2018-10-28] MEDS: chlordiazePOXIDE 5 MG CAPSULE PO SCH (22:03)
[2018-10-28] MEDS: THIAMINE HCL 100 MG TABLET (FP) PO SCH (22:03)
[2018-10-28] MEDS: MELATONIN 5 MG TABLETS PO PRN (22:04)
[2018-10-29] MEDS ORDERED: METHADONE HCL 10 MG TABLET ONE (05:13)
[2018-10-29] MEDS ORDERED: METHADONE HCL 40 MG DISPERSABLE TABLET ONE (05:14)
[2018-10-29] MEDS: METHADONE 40 MG, METHADONE 10 MG PO SCH (05:56)
[2018-10-29] MEDS: chlordiazePOXIDE 5 MG CAPSULE PO SCH ×2 (07:00→13:17)
[2018-10-29] MEDS: PRENATAL VITAMINS W/ FOLIC ACID TABLET (FP) PO SCH (10:06)
[2018-10-29] MEDS: SULFAMETHOXAZOLE/TRIMETHOPRIM 800MG/160MG D.S. TABLET PO SCH ×2 (10:06→22:40)
[2018-10-29] MEDS: METHOCARBAMOL 500 MG TABLET PO PRN (10:08)
--- NOTE | 2018-10-29 10:30 | PN ---
[facility] CIWA - CIWA Score Nausea/Vomitin-No Nausea/No Vomiting Muscle Tremors: 3 Anxiety: 1-Mildly Anxious Agitation: 2 Paroxysmal Sweats: 1-Minimal Palms Moist Orientation: 1-Uncertain about Date Tacttile Disturbances: 0-None Auditory Disturbances: 0-None Visual Disturbances: 0-None Headache: 1-Very Mild CIWA-Ar Total Score: 9 S Progress Note (SOAP) Subjective: ambulate with cane feeling better longest sobriety 1 1/2 years feeling better today Objective: 10/29/18 10:30 Vital Signs Temperature 98.7 F 10/29/18 09:14 Pulse Rate 84 10/29/18 09:14 Respiratory Rate 18 10/29/18 09:14 Blood Pressure 107/66 10/29/18 09:14 O2 Sat by Pulse Oximetry (%) Laboratory Last Values WBC 4.7 K/mm3 (4.0-10.0) 10/27/18 13:20 RBC 4.11 M/mm3 (4.00-5.60) 10/27/18 13:20 Hgb 12.7 GM/dL (11.7-16.9) 10/27/18 13:20 Hct 38.0 % (35.4-49) 10/27/18 13:20 MCV 92.4 fl (80-96) 10/27/18 13:20 MCH 30.9 pg (25.7-33.7) 10/27/18 13:20 MCHC 33.5 g/dl (32.0-35.9) 10/27/18 13:20 RDW 14.5 % (11.9-15.9) 10/27/18 13:20 Plt Count 224 K/MM3 (134-434) D 10/27/18 13:20 MPV 8.0 fl (7.5-11.1) 10/27/18 13:20 Sodium 136 mmol/L (136-145) 10/27/18 13:20 Potassium 4.0 mmol/L (3.5-5.1) 10/27/18 13:20 Chloride 106 mmol/L (98-107) 10/27/18 13:20 Carbon Dioxide 26 mmol/L (21-32) 10/27/18 13:20 Anion Gap 4 MMOL/L (8-16) L 10/27/18 13:20 BUN 14 mg/dL (7-18) 10/27/18 13:20 Creatinine 0.7 mg/dL (0.55-1.3) 10/27/18 13:20 Creat Clearance w eGFR 115.83 (>60) 10/27/18 13:20 Random Glucose 106 mg/dL (74-106) 10/27/18 13:20 Calcium 8.5 mg/dL (8.5-10.1) 10/27/18 13:20 Total Bilirubin 0.4 mg/dL (0.2-1) 10/27/18 13:20 AST 34 U/L (15-37) 10/27/18 13:20 ALT 28 U/L (13-61) 10/27/18 13:20 Alkaline Phosphatase 90 U/L (45-117) 10/27/18 13:20 Total Protein 6.9 g/dl (6.4-8.2) 10/27/18 13:20 Albumin 3.5 g/dl (3.4-5.0) 10/27/18 13:20 Urine Color Dk yellow 10/27/18 21:24 Urine Appearance Clear 10/27/18 21:24 Urine pH 5.5 (5.0-8.0) 10/27/18 21:24 Ur Specific [place] 1.035 (1.010-1.035) 10/27/18 21:24 Urine Protein 1+ (NEGATIVE) H 10/27/18 21:24 Urine Glucose (UA) Negative (NEGATIVE) 10/27/18 21:24 Urine Ketones Trace (NEGATIVE) H 10/27/18 21:24 Urine Blood Negative (NEGATIVE) 10/27/18 21:24 Urine Nitrite Negative (NEGATIVE) 10/27/18 21:24 Urine Bilirubin Negative (NEGATIVE) 10/27/18 21:24 Urine Urobilinogen 1.0 mg/dL (0.2-1.0) 10/27/18 21:24 Ur Leukocyte Esterase Negative (NEGATIVE) 10/27/18 21:24 Urine WBC (Auto) 6 /hpf (0-5) 10/27/18 21:24 Urine RBC (Auto) 2 /hpf (0-4) 10/27/18 21:24 Urine Casts (Auto) 2 /lpf (0-8) 10/27/18 21:24 U Epithel Cells (Auto) 1.1 /HPF (0-5/HPF) 10/27/18 21:24 Urine Bacteria (Auto) 5.1 /hpf (NEGATIVE) 10/27/18 21:24 RPR Titer Nonreactive (NONREACTIVE) 10/27/18 13:20 lab noted Assessment: 10/29/18 10:30 mild alcohol withdrawal sx Plan: continue detox
[2018-10-29] MEDS ORDERED: chlordiazePOXIDE HCL 10 MG CAPSULE PO PRN (21:00)
[2018-10-29] MEDS: THIAMINE HCL 100 MG TABLET (FP) PO SCH (22:40)
[2018-10-29] MEDS: chlordiazePOXIDE HCL 10 MG CAPSULE PO SCH (22:40)
[2018-10-29] MEDS: MELATONIN 5 MG TABLETS PO PRN (22:41)
[2018-10-30] MEDS ORDERED: METHADONE HCL 10 MG TABLET ONE (04:50)
[2018-10-30] MEDS ORDERED: METHADONE HCL 40 MG DISPERSABLE TABLET ONE (04:51)
[2018-10-30] MEDS: METHADONE 40 MG, METHADONE 10 MG PO SCH (05:29)
[2018-10-30] MEDS: chlordiazePOXIDE HCL 10 MG CAPSULE PO SCH (05:42)
[2018-10-30 09:25] VITALS: BP 115/71; PULSE 55; TEMP 98.3
[2018-10-30] MEDS: PRENATAL VITAMINS W/ FOLIC ACID TABLET (FP) PO SCH (10:12)
[2018-10-30] MEDS: SULFAMETHOXAZOLE/TRIMETHOPRIM 800MG/160MG D.S. TABLET PO SCH (10:12)
--- NOTE | 2018-10-30 17:36 | DS ---
[facility] Detox Discharge Summary Admission Date: 10/27/18 Discharge Date: 10/30/18 - History Present History: Alcohol Dependence, Cocaine Dependence Additional Comments: PATIENT GOING TO [facility] ([place], [place]) AND [facility] (WHERE HE HAS PREVIOUSLY BEEN A CLIENT) FOR AFTERCARE. PRESCRIPTION FOR REMAINDER OF COURSE OF ANTIBIOTIC (BACTRIM DS) STARTED FOR TREATMENT OF BRONCHITIS WHILE PATIENT WAS ADMITTED FOR DETOX SENT TO PATIENT'S PHARMACY ([id number]) FOR FOLLOW-UP AFTERCARE. 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 PATIENT VERBALIZED UNDERSTANDING OF ALL RECOMMENDATIONS PRESENTED TO HIM PRIOR TO DISCHARGE FORM DETOX UNIT. PATIENT WAS DISCHARGED FROM DETOX UNIT NI STABLE MEDICAL CONDITION. Pertinent Past History: Weight Loss, Nicotine Dependence, Use Of Cane As Ambulatory Aid, Arthritis, Bipolar Disorder, History Of Seizures, Depression, Schizoaffective Disorder, History Of Positive PPD, Bronchitis, Asthma, Scoliosis, Dehydration, M.M.T.P. - Physical Exam Results Vital Signs: Vital Signs Temperature 98.3 F 10/30/18 09:24 Pulse Rate 55 L 10/30/18 09:24 Respiratory Rate 16 10/30/18 09:24 Blood Pressure 115/71 10/30/18 09:24 O2 Sat by Pulse Oximetry (%) Pertinent Admission Physical Exam Findings: WITHDRAWAL SYMPTOMS. Laboratory Tests 10/27/18 10/27/18 10/27/18 13:20 13:20 13:20 WBC 4.7 RBC 4.11 Hgb 12.7 Hct 38.0 MCV 92.4 MCH 30.9 MCHC 33.5 RDW 14.5 Plt Count 224 D MPV 8.0 Sodium 136 Potassium 4.0 Chloride 106 Carbon Dioxide 26 Anion Gap 4 L BUN 14 Creatinine 0.7 Creat Clearance w eGFR 115.83 Random Glucose 106 Calcium 8.5 Total Bilirubin 0.4 AST 34 ALT 28 Alkaline Phosphatase 90 Total Protein 6.9 Albumin 3.5 Urine Color Urine Appearance Urine pH Ur Specific [place] Urine Protein Urine Glucose (UA) Urine Ketones Urine Blood Urine Nitrite Urine Bilirubin Urine Urobilinogen Ur Leukocyte Esterase Urine WBC (Auto) Urine RBC (Auto) Urine Casts (Auto) U Epithel Cells (Auto) Urine Bacteria (Auto) RPR Titer Nonreactive 10/27/18 21:24 WBC RBC Hgb Hct MCV MCH MCHC RDW Plt Count MPV Sodium Potassium Chloride Carbon Dioxide Anion Gap BUN Creatinine Creat Clearance w eGFR Random Glucose Calcium Total Bilirubin AST ALT Alkaline Phosphatase Total Protein Albumin Urine Color Dk yellow Urine Appearance Clear Urine pH 5.5 Ur Specific [place] 1.035 Urine Protein 1+ H Urine Glucose (UA) Negative Urine Ketones Trace H Urine Blood Negative Urine Nitrite Negative Urine Bilirubin Negative Urine Urobilinogen 1.0 Ur Leukocyte Esterase Negative Urine WBC (Auto) 6 Urine RBC (Auto) 2 Urine Casts (Auto) 2 U Epithel Cells (Auto) 1.1 Urine Bacteria (Auto) 5.1 RPR Titer LABS NOTED. - Treatment Hospital Course: Detox Protocol Followed, Detoxed Safely, Responded well, Discharged Condition Good Patient has Accepted a Rehab Referral to: PT. GOING TO [facility] ( [place], [place]) FOR AFTERCARE. - Medication Discharge Medications: Ambulatory Orders Quetiapine Fumarate [Seroquel -] 200 mg PO HS #30 tablet 06/02/18 Albuterol Sulfate Inhaler - [Ventolin Hfa Inhaler -] 1 - 2 inh PO Q4H PRN #1 inhaler 10/30/18 Sulfamethoxazole/Trimethoprim [Bactrim Ds -] 1 tab PO BID 7 Days #14 tablet - Diagnosis (1) Asthma Status: Acute Qualifiers: Asthma severity: unspecified severity Asthma persistence: unspecified Asthma complication type: uncomplicated Qualified Code(s): J45.909 - Unspecified asthma, uncomplicated (2) Bronchitis Status: Acute (3) Dehydration Status: Acute (4) Scoliosis Status: Acute Qualifiers: Scoliosis type: unspecified scoliosis Spinal region: unspecified Qualified Code(s): M41.9 - Scoliosis, unspecified (5) Alcohol dependence with withdrawal, uncomplicated Status: Acute (6) Bipolar disorder (manic depression) Status: Chronic Qualifiers: Active/Remission status: remission status unspecified Qualified Code(s): F31.9 - Bipolar disorder, unspecified (7) Cocaine dependence, uncomplicated Status: Chronic (8) Nicotine dependence Status: Chronic Qualifiers: Nicotine product type: cigarettes Substance use status: uncomplicated Qualified Code(s): F17.210 - Nicotine dependence, cigarettes, uncomplicated (9) Schizoaffective disorder Status: Chronic Qualifiers: Schizoaffective disorder type: unspecified Qualified Code(s): F25.9 - Schizoaffective disorder, unspecified (10) Sedated Status: Acute (11) PPD positive Status: Chronic (12) Substance induced mood disorder Status: Chronic - AMA Did Patient Leave Against Medical Advice: No
== END 2018-10-30 10:45 | disposition home or self-care (01) | DRG 773 ==
LOC: YASAS 10:54 → Y3N 13:08
PROVIDERS: ADMIT Surgery; ATTEND Surgery
PROC: HZ2ZZZZ Detoxification Services for Substance Abuse Treatment (ICD-10-PCS; principal; 2018-10-27)
DX: F10.230 Alcohol dependence with withdrawal, uncomplicated (principal); F14.20 Cocaine dependence, uncomplicated; F11.20 Opioid dependence, uncomplicated; F17.213 Nicotine dependence, cigarettes, with withdrawal; F25.9 Schizoaffective disorder, unspecified; F31.9 Bipolar disorder, unspecified; F19.24 Other psychoactive substance dependence with psychoactive substance-induced mood disorder; J45.909 Unspecified asthma, uncomplicated; J20.9 Acute bronchitis, unspecified; E86.0 Dehydration; M41.9 Scoliosis, unspecified; R76.11 Nonspecific reaction to tuberculin skin test without active tuberculosis; R26.89 Other abnormalities of gait and mobility; Z99.89 Dependence on other enabling machines and devices; R41.89 Other symptoms and signs involving cognitive functions and awareness; Z86.69 Personal history of other diseases of the nervous system and sense organs
CPT/HCPCS: 36415; 80053; 81003; 85027; 86593

== ENCOUNTER 2018-11-09 16:10 | Inpatient (IN) | payer OTHER ==
[2018-11-09 18:50] VITALS: BMI 19.6
--- NOTE | 2018-11-09 20:25 | HP ---
CIWA Score Nausea/Vomitin-Mild Nausea/No Vomiting Muscle Tremors: 4-Moderate,w/Arms Extend Anxiety: 3 Agitation: 3 Paroxysmal Sweats: 3 Orientation: 2-Disoriented Date<2 days Tacttile Disturbances: 0-None Auditory Disturbances: 0-None Visual Disturbances: 0-None Headache: 0-None Present CIWA-Ar Total Score: 16 - Admission Criteria OASAS Guidelines: Admission for Medically Managed Detox: Requires at least one of the followin. CIWA greater than 12 2. Seizures within the past 24 hours 3. Delirium tremens within the past 24 hours 4. Hallucinations within the past 24 hours 5. Acute intervention needed for co occurring medical disorder 6. Acute intervention needed for co occurring psychiatric disorder 7. Severe withdrawal that cannot be handled at a lower level of care (continued vomiting, continued diarrhea, abnormal vital signs) requiring intravenous medication and/or fluids 8. Admission ROS [facility] Chief Complaint: Alcohol withdrawal symptoms Allergies/Adverse Reactions: Allergies Allergy/AdvReac Type Severity Reaction Status Date / Time No Known Allergies Allergy Verified 10/27/18 11:27 History of Present Illness: 58 years old male with a long history of alcohol dependence is seeking admission to detox. Patient was in detox here at [facility] for the period 10/27/2018 - 10/30/2018. He reports 2 years of sobriety. He has medical history of seizures , bronchitis, asthma, syphilis (treated 2007) and depression. He reports suicide attempt in 2014 and denies suicidal ideation at this time. He is on methadone 50mg tablet oral daily at [facility]. Dose is yet to be verified by the nurse. Exam Limitations: No Limitations - Ebola screening Have you traveled outside of the country in the last 21 days: No Have you had contact with anyone from an Ebola affected area: No Have you been sick,other than usual withdrawal symptoms: No Do you have a fever: No - Review of Systems Constitutional: Chills, Loss of Appetite, Malaise, Night Sweats, Changes in sleep EENT: reports: No Symptoms Reported Respiratory: reports: No Symptoms reported Cardiac: reports: No Symptoms Reported GI: reports: Nausea, Poor Appetite, Poor Fluid Intake, Abdominal cramping : reports: No Symptoms Reported Musculoskeletal: reports: Back Pain, Muscle Pain Integumentary: reports: Dryness, Flushing Neuro: reports: Tremors Endocrine: reports: No Symptoms Reported Hematology: reports: No Symptoms Reported Psychiatric: reports: Mood/Affect Appropiate, Anxious Other Systems: Reviewed and Negative Patient History - Patient Medical History Hx Anemia: No Hx Asthma: Yes (Albuterol) Hx Chronic Obstructive Pulmonary Disease (COPD): No Hx Cancer: No Hx Cardiac Disorders: No Hx Congestive Heart Failure: No Hx Hypertension: No Hx Hypercholesterolemia: No Hx Pacemaker: No Hx Seizures: Yes (Last 2017) Hx Dementia: No Hx Diabetes: No Hx Gastrointestinal Disorders: No Hx Genitourinary Disorders: No Hx Sexually Transmitted Disorders: Yes (SYPHILIS (TREATED IN SNF IN 2007)) Hx Renal Disease (ESRD): No Hx Thyroid Disease: No Hx Human Immunodeficiency Virus (HIV): No (Negative 2017) Hx Hepatitis C: No Hx Depression: Yes (SEROQUEL) Hx Suicide Attempt: No Hx Bipolar Disorder: Yes (Not on medication) Hx Schizophrenia: Yes (SCIZOAFFECTIVE DISORDER) - Patient Surgical History Past Surgical History: No Hx Neurologic Surgery: No Hx Cataract Extraction: No Hx Cardiac Surgery: No Hx Lung Surgery: No Hx Breast Surgery: No Hx Breast Biopsy: No Hx Abdominal Surgery: No Hx Appendectomy: No Hx Cholecystectomy: No Hx Genitourinary Surgery: No Hx Section: No Hx Orthopedic Surgery: No Anesthesia Reaction: No - PPD History Previous Implant?: Yes ([facility] for 6 months) Documented Results: Positive w/proof Results: cxr 05/16/18 PPD to be Administered?: No - Reproductive History Patient is a Female of Child Bearing Age (11 -55 yrs old): No (MALE) - Smoking Cessation Smoking history: Current every day smoker Have you smoked in the past 12 months: Yes Aproximately how many cigarettes per day: 10 Hx Chewing Tobacco Use: No Initiated information on smoking cessation: Yes 'Breaking Loose' booklet given: 11/09/18 - Substance & Tx. History Hx Alcohol Use: Yes Hx Substance Use: Yes Substance Use Type: Alcohol, Cocaine, Prescribed Hx Substance Use Treatment: Yes ([facility] 10/27/2018 - 10/30/2018) - Substances abused Alcohol Substance route: Oral Frequency: Daily Amount used: 1 PACK BEER Age of first use: 17 Date of last use: 11/09/18 Cocaine Substance route: Smoking Frequency: Daily Amount used: $150 Age of first use: 17 Date of last use: 11/09/18 Family Disease History - Family Disease History Family Disease History: CA: Father (colon ca, age 63), Mother (unknown , age 73 ) Admission Physical Exam [facility] - Vital Signs Vital Signs: Vital Signs - 24 hr 11/09/18 18:30 Temperature 97.4 F L Pulse Rate 68 Respiratory 18 Rate Blood Pressure 115/69 - Physical General Appearance: Yes: Moderate Distress, Tremorous, Sweating, Anxious HEENTM: Yes: EOMI, Normal ENT Inspection, Normal Voice, NAVDEEP Respiratory: Yes: Lungs Clear, Normal Breath Sounds, No Respiratory Distress Neck: Yes: Supple Breast: Yes: Breast Exam Deferred Cardiology: Yes: Regular Rhythm, Regular Rate Abdominal: Yes: Normal Bowel Sounds Genitourinary: Yes: Within Normal Limits Back: Yes: Normal Inspection Musculoskeletal: Yes: Back pain, Muscle Pain Extremities: Yes: Tremors Neurological: Yes: Within Normal Limits, Alert, Normal Response Integumentary: Yes: Warm Lymphatic: Yes: Within Normal Limits - Diagnostic (1) Seizures Current Visit: Yes Status: Acute (2) Alcohol dependence with withdrawal, uncomplicated Current Visit: No Status: Acute (3) Asthma Current Visit: No Status: Acute Qualifiers: Asthma severity: unspecified severity Asthma persistence: unspecified Asthma complication type: uncomplicated Qualified Code(s): J45.909 - Unspecified asthma, uncomplicated (4) Bronchitis Current Visit: No Status: Acute (5) Cannabis dependence Current Visit: No Status: Acute (6) Depression Current Visit: No Status: Chronic Qualifiers: Depression Type: unspecified Qualified Code(s): F32.9 - Major depressive disorder, single episode, unspecified (7) Nicotine dependence Current Visit: No Status: Chronic Qualifiers: Nicotine product type: cigarettes Substance use status: uncomplicated Qualified Code(s): F17.210 - Nicotine dependence, cigarettes, uncomplicated (8) Opioid dependence on agonist therapy Current Visit: No Status: Chronic (9) Schizoaffective disorder Current Visit: No Status: Chronic Qualifiers: Schizoaffective disorder type: unspecified Qualified Code(s): F25.9 - Schizoaffective disorder, unspecified Cleared for Admission [facility] - Detox or Rehab [facility] Level of Care: Medically Managed Detox Regimen/Protocol: Librium Breathalyzer - Breathalyzer Breathalyzer: 0 Urine Drug Screen - Test Device Lot number: [id number] Expiration date: 06/09/20 - Control Is test valid?: Yes - Results Drug screen NEGATIVE: No Urine drug screen results: CINDA-Cocaine, MTD-Methadone, BZO-Benzodiazepines Inpatient Rehab Admission - Rehab Decision to Admit Inpatient rehab admission?: No
[2018-11-09] MEDS ORDERED: ACETAMINOPHEN 325 MG TABLET (FP) PO PRN ×2 (20:37)
[2018-11-09] MEDS ORDERED: BISMUTH SUBSALICYLATE 524 MG/30 ML UD PO PRN (20:37)
[2018-11-09] MEDS ORDERED: MAGNESIUM CITRATE 300 ML BOTTLE PO PRN (20:37)
[2018-11-09] MEDS ORDERED: chlordiazePOXIDE HCL 25 MG CAPSULE PO PRN (20:37)
[2018-11-09] MEDS ORDERED: MAG HYDROX/AL HYDROX/SIMETH 30 ML UNIT-DOSE CUP PO PRN (20:37)
[2018-11-09] MEDS ORDERED: MAGNESIUM HYDROX 2400MG/30ML ORAL SUSPENSION 30 ML CUP PO PRN (20:37)
[2018-11-09] MEDS ORDERED: MELATONIN 5 MG TABLETS PO PRN (20:37)
[2018-11-09] MEDS ORDERED: NICOTINE POLACRILEX 2 MG GUM BUC PRN (20:37)
[2018-11-09] MEDS ORDERED: IBUPROFEN 400 MG TABLET (FP) PO PRN (20:37)
[2018-11-09] MEDS ORDERED: MENTHOL/PHENOL 1 EACH UD MM PRN (20:37)
[2018-11-09] MEDS ORDERED: hydrOXYzine PAMOATE 25 MG CAPSULE (FP) PO PRN (20:37)
[2018-11-09] MEDS: THIAMINE HCL 100 MG TABLET (FP) PO SCH (21:47)
[2018-11-09] MEDS: chlordiazePOXIDE HCL 25 MG CAPSULE PO SCH (22:18)
[2018-11-10] MEDS: chlordiazePOXIDE HCL 25 MG CAPSULE PO SCH ×4 (05:44→22:13)
[2018-11-10] MEDS ORDERED: METHADONE HCL 40 MG DISPERSABLE TABLET PO SCH (09:00)
[2018-11-10] MEDS ORDERED: METHADONE HCL 40 MG DISPERSABLE TABLET ONE (09:59)
[2018-11-10] MEDS ORDERED: METHADONE HCL 10 MG TABLET ONE (09:59)
[2018-11-10] MEDS: METHADONE 40 MG, METHADONE 10 MG PO SCH (10:11)
[2018-11-10 10:12] LABS: HEMATOCRIT 37.3 % (35.4-49); HEMOGLOBIN 12.5 GM/dL (11.7-16.9); MCH 30.6 pg (25.7-33.7); MCHC 33.4 g/dl (32.0-35.9); MEAN CELL VOLUME 91.4 fl (80-96); MEAN PLT VOLUME 8.3 fl (7.5-11.1); PLATELET COUNT 216 K/MM3 (134-434); RBC 4.09 M/mm3 (4.00-5.60); RDW 14.4 % (11.9-15.9); WHITE BLOOD COUNT 3.9 K/mm3 (4.0-10.0)
[2018-11-10] MEDS: PRENATAL VITAMINS W/ FOLIC ACID TABLET (FP) PO SCH (10:12)
[2018-11-10] MEDS: NICOTINE 14 MG/24 HOURS TOPICAL PATCH TD SCH (10:13)
[2018-11-10 10:34] LABS: ALBUMIN 3.1 g/dl (3.4-5.0); ALK PHOS 85 U/L (45-117); ANION GAP 5 MMOL/L (8-16); BILIRUBIN,TOTAL 0.4 mg/dL (0.2-1); BLOOD UREA NITROGEN 12 mg/dL (7-18); CALCIUM 8.7 mg/dL (8.5-10.1); CHLORIDE 107 mmol/L (98-107); CO2 31 mmol/L (21-32); CREATININE 0.9 mg/dL (0.55-1.3); GLUCOSE,RANDOM 83 mg/dL (74-106); POTASSIUM 4.1 mmol/L (3.5-5.1); SGOT/AST 20 U/L (15-37); SGPT/ALT 21 U/L (13-61); SODIUM 142 mmol/L (136-145); TOT PROT 5.9 g/dl (6.4-8.2)
--- NOTE | 2018-11-10 12:22 | PN ---
S CIWA - CIWA Score Nausea/Vomitin-Mild Nausea/No Vomiting Muscle Tremors: 2 Anxiety: 1-Mildly Anxious Agitation: 1-Slight > Activity Paroxysmal Sweats: 1-Minimal Palms Moist Orientation: 0-Oriented Tacttile Disturbances: 0-None Auditory Disturbances: 0-None Visual Disturbances: 0-None Headache: 0-None Present CIWA-Ar Total Score: 6 BHS Progress Note (SOAP) Subjective: pt states he feels off balance, uses a cane but forgot to bring it with him. says detox protocol is working well for him O Vital Signs - 24 hr 11/09/18 11/09/18 11/10/18 18:30 21:45 00:45 Temperature 97.4 F L 97.1 F L Pulse Rate 68 50 L Respiratory 18 18 18 Rate Blood Pressure 115/69 104/71 11/10/18 11/10/18 11/10/18 03:30 06:37 09:19 Temperature 98.3 F 98.8 F Pulse Rate 57 L 57 L Respiratory 18 18 18 Rate Blood Pressure 101/63 104/73 Laboratory Tests 11/10/18 11/10/18 11/10/18 07:00 07:00 07:00 WBC 3.9 L RBC 4.09 Hgb 12.5 Hct 37.3 MCV 91.4 MCH 30.6 MCHC 33.4 RDW 14.4 Plt Count 216 MPV 8.3 Sodium 142 Potassium 4.1 Chloride 107 Carbon Dioxide 31 Anion Gap 5 L BUN 12 Creatinine 0.9 Creat Clearance w eGFR 86.67 Random Glucose 83 Calcium 8.7 Total Bilirubin 0.4 AST 20 ALT 21 Alkaline Phosphatase 85 Total Protein 5.9 L Albumin 3.1 L RPR Titer Nonreactive a/p: continue alcohol detox protocol cane prn for ambulation assistance
--- NOTE | 2018-11-10 17:47 | CONSULT ---
[facility] Psychiatric Consult - Data Date of interview: 11/10/18 Admission source: [facility] Identifying data: Readmission to [facility] for this 58 y/o AA male self- referred for detoxification (cocaine, opioid, alcohol). Examined at [address] [place] [address]. Patient is , a father of three, domiciled ([facility]), unemployed (disabled) and supported on SSI benefits. Substance Abuse History: Confirmed by patient in this interview. Details in current [facility] report as follows : Smoking history: Current every day smoker. Have you smoked in the past 12 months: Yes. Aproximately how many cigarettes per day: 10. Hx Chewing Tobacco Use: No. Initiated information on smoking cessation: Yes. 'Breaking Loose' booklet given: 11/09/18. - Substance & Tx. History. Hx Alcohol Use: Yes. Hx Substance Use: Yes. Substance Use Type: Alcohol, Cocaine, Prescribed. Hx Substance Use Treatment: Yes ([facility] 2018 - 10/30/2018). - Substances abused. Alcohol. Substance route: Oral. Frequency: Daily. Amount used: 1 PACK BEER. Age of first use: 17. Date of last use: 11/09/18. Cocaine. Substance route: Smoking. Frequency: Daily. Amount used: $150. Age of first use: 17. Date of last use: 11/09/18 Medical History: Remarkable for a history of syphilis (treated in 2007), withdrawal-related seizures, arthritis and chronic lumbar pain. Unsteady gait ( patient uses of a cane for ambulation). Psychiatric History: Patient reports a history of multiple psychiatric hospitalizations ([facility], [facility]). Mr Sam declines to discuss details of his committment to [facility]. Reportedly diagnosed with " Bipolar Disorder and Schizophrenia ". Patient states that he has been prescribed seroquel + cogentin + geodon. Sees a psychiatrist at a mental health clinic in [facility]. Known history of one suicide attempt via jumping into oncoming traffic (years ago). Currently on methadone maintenance (50 mg/day) at the [facility] in the [place]. Physical/Sexual Abuse/Trauma History: Patient denies. Additional Comment: Urine drug screen results: CINDA-Cocaine, MTD-Methadone, BZO- Benzodiazepines. Noted. Mental Status Exam - Mental Status Exam Alert and Oriented to: Time, Place, Person Cognitive Function: Good Patient Appearance: Well Groomed (tall and thin frame) Mood: Hopeful Affect: Appropriate, Normal Range Patient Behavior: Fatigued, Appropriate (friendly), Cooperative Speech Pattern: Clear, Appropriate Voice Loudness: Normal Thought Process: Goal Oriented Thought Disorder: Not Present Hallucinations: Denies Suicidal Ideation: Denies Homicidal Ideation: Denies Insight/Judgement: Poor Sleep: Well Appetite: Good Muscle strength/Tone: Normal Gait/Station: Other (unsteady gait due to orthopedic issues; walks with a cane) Psychiatric Findings - Problem List ([place] 1, 2,3) (1) Alcohol dependence with withdrawal, uncomplicated Current Visit: Yes Status: Acute (2) Opioid dependence on agonist therapy Current Visit: Yes Status: Chronic (3) Cocaine dependence Current Visit: Yes Status: Chronic (4) Nicotine dependence Current Visit: Yes Status: Chronic Qualifiers: Nicotine product type: cigarettes Substance use status: uncomplicated Qualified Code(s): F17.210 - Nicotine dependence, cigarettes, uncomplicated (5) History of schizoaffective disorder Current Visit: Yes Status: Chronic - Initial Treatment Plan Initial Treatment Plan: Psychoeducation. Sleep hygiene. Support. AA/NA meetings. Will hold seroquel tonight in view of hypotension (increased risk of falls). Contact made with [facility]ist at [facility] ([phone]) : most recent refill for seroquel 300 mg/hs was picked up on 10/25/18. Falls precautions. Observation.
[2018-11-10] MEDS: THIAMINE HCL 100 MG TABLET (FP) PO SCH (22:13)
[2018-11-10] MEDS: METHOCARBAMOL 500 MG TABLET PO PRN (22:14)
[2018-11-11] MEDS: ALBUTEROL SO4 8 GM HFA INHALER IH PRN ×2 (03:21→16:30)
[2018-11-11] MEDS ORDERED: ALBUTEROL SO4 2.5/IPRATROPIUM 0.5 INH SOL 3 ML VIAL.NEB. NEB PRN (03:25)
[2018-11-11] MEDS ORDERED: METHADONE HCL 10 MG TABLET ONE (04:51)
[2018-11-11] MEDS ORDERED: METHADONE HCL 40 MG DISPERSABLE TABLET ONE (04:51)
[2018-11-11] MEDS: METHADONE 40 MG, METHADONE 10 MG PO SCH (05:52)
[2018-11-11] MEDS: chlordiazePOXIDE HCL 25 MG CAPSULE PO SCH ×3 (05:52→17:34)
[2018-11-11] MEDS: NICOTINE 14 MG/24 HOURS TOPICAL PATCH TD SCH (10:18)
[2018-11-11] MEDS: PRENATAL VITAMINS W/ FOLIC ACID TABLET (FP) PO SCH (10:18)
[2018-11-11] MEDS: METHOCARBAMOL 500 MG TABLET PO PRN (17:30)
--- NOTE | 2018-11-11 18:27 | PN ---
S Progress Note Note: TC from RN with report that pt is difficult to arouse. Met pt alert, oriented to name, able to answer questions but somolent. pupils were constricted, VS as Bp - 117/72, P - 67, R - 14, o2 sat - 96%, FS - 97mg/dl. Per RNs, pt last medicated with methadone at 11am with librium. Pt will be sent to ED for evaluation, report given to DEWEY Rivera.
[2018-11-11] MEDS ORDERED: chlordiazePOXIDE HCL 10 MG CAPSULE PO PRN (23:00)
[2018-11-11] MEDS: chlordiazePOXIDE HCL 10 MG CAPSULE PO SCH (23:05)
[2018-11-11] MEDS: THIAMINE HCL 100 MG TABLET (FP) PO SCH (23:05)
[2018-11-12] MEDS ORDERED: METHADONE HCL 10 MG TABLET ONE (04:10)
[2018-11-12] MEDS ORDERED: METHADONE HCL 40 MG DISPERSABLE TABLET ONE (04:11)
[2018-11-12] MEDS: METHADONE 40 MG, METHADONE 10 MG PO SCH (05:43)
[2018-11-12] MEDS: chlordiazePOXIDE HCL 10 MG CAPSULE PO SCH ×4 (06:50→22:31)
[2018-11-12] MEDS: ALBUTEROL SO4 8 GM HFA INHALER IH PRN (09:10)
[2018-11-12] MEDS: PRENATAL VITAMINS W/ FOLIC ACID TABLET (FP) PO SCH (10:09)
[2018-11-12] MEDS: NICOTINE 14 MG/24 HOURS TOPICAL PATCH TD SCH (10:09)
--- NOTE | 2018-11-12 15:08 | PN ---
[facility] CIWA - CIWA Score Nausea/Vomitin-No Nausea/No Vomiting Muscle Tremors: 1-None Visible, but Hurst Anxiety: 1-Mildly Anxious Agitation: 1-Slight > Activity Paroxysmal Sweats: No Perspiration Orientation: 0-Oriented Tacttile Disturbances: 0-None Auditory Disturbances: 0-None Visual Disturbances: 0-None Headache: 0-None Present CIWA-Ar Total Score: 3 [facility] Progress Note (SOAP) Subjective: feeling better tolerate food and fluid well doing well with the detox regimen discuss aftercare with staff Objective: 11/12/18 15:09 Vital Signs Temperature 98.3 F 11/12/18 13:24 Pulse Rate 52 L 11/12/18 13:24 Respiratory Rate 18 11/12/18 13:24 Blood Pressure 92/64 11/12/18 13:24 O2 Sat by Pulse Oximetry (%) Laboratory Last Values WBC 3.9 K/mm3 (4.0-10.0) L 11/10/18 07:00 RBC 4.09 M/mm3 (4.00-5.60) 11/10/18 07:00 Hgb 12.5 GM/dL (11.7-16.9) 11/10/18 07:00 Hct 37.3 % (35.4-49) 11/10/18 07:00 MCV 91.4 fl (80-96) 11/10/18 07:00 MCH 30.6 pg (25.7-33.7) 11/10/18 07:00 MCHC 33.4 g/dl (32.0-35.9) 11/10/18 07:00 RDW 14.4 % (11.9-15.9) 11/10/18 07:00 Plt Count 216 K/MM3 (134-434) 11/10/18 07:00 MPV 8.3 fl (7.5-11.1) 11/10/18 07:00 Sodium 142 mmol/L (136-145) 11/10/18 07:00 Potassium 4.1 mmol/L (3.5-5.1) 11/10/18 07:00 Chloride 107 mmol/L (98-107) 11/10/18 07:00 Carbon Dioxide 31 mmol/L (21-32) 11/10/18 07:00 Anion Gap 5 MMOL/L (8-16) L 11/10/18 07:00 BUN 12 mg/dL (7-18) 11/10/18 07:00 Creatinine 0.9 mg/dL (0.55-1.3) 11/10/18 07:00 Creat Clearance w eGFR 86.67 (>60) 11/10/18 07:00 POC Glucometer 92 UNITS (80-120) 11/11/18 18:00 Random Glucose 83 mg/dL (74-106) 11/10/18 07:00 Calcium 8.7 mg/dL (8.5-10.1) 11/10/18 07:00 Total Bilirubin 0.4 mg/dL (0.2-1) 11/10/18 07:00 AST 20 U/L (15-37) 11/10/18 07:00 ALT 21 U/L (13-61) 11/10/18 07:00 Alkaline Phosphatase 85 U/L (45-117) 11/10/18 07:00 Total Protein 5.9 g/dl (6.4-8.2) L 11/10/18 07:00 Albumin 3.1 g/dl (3.4-5.0) L 11/10/18 07:00 RPR Titer Nonreactive (NONREACTIVE) 11/10/18 07:00 lab noted Assessment: 11/12/18 15:09 withdrawal sx Plan: continue detox
[2018-11-12] MEDS: THIAMINE HCL 100 MG TABLET (FP) PO SCH (22:20)
[2018-11-13] MEDS ORDERED: METHADONE HCL 40 MG DISPERSABLE TABLET ONE (04:44)
[2018-11-13] MEDS ORDERED: METHADONE HCL 10 MG TABLET ONE (04:44)
[2018-11-13] MEDS: METHADONE 40 MG, METHADONE 10 MG PO SCH (05:13)
[2018-11-13] MEDS: ALBUTEROL SO4 8 GM HFA INHALER IH PRN (05:45)
[2018-11-13 09:10] VITALS: BP 92/53; PULSE 78; TEMP 97.6
[2018-11-13] MEDS: PRENATAL VITAMINS W/ FOLIC ACID TABLET (FP) PO SCH (10:06)
[2018-11-13] MEDS: NICOTINE 14 MG/24 HOURS TOPICAL PATCH TD SCH (10:06)
[2018-11-13] MEDS: chlordiazePOXIDE HCL 10 MG CAPSULE PO SCH (10:07)
--- NOTE | 2018-11-13 13:08 | DS ---
[facility] Detox Discharge Summary Admission Date: 11/09/18 Discharge Date: 11/13/18 - History Present History: Alcohol Dependence Additional Comments: 58 years old male admitted on 11/09/18 for alcohol withdrawal stabilization [facility] Exam Results Vital Signs: Vital Signs Temperature 97.6 F 11/13/18 09:10 Pulse Rate 78 11/13/18 09:10 Respiratory Rate 18 11/13/18 09:10 Blood Pressure 92/53 L 11/13/18 09:10 O2 Sat by Pulse Oximetry (%) Pertinent Admission Physical Exam Findings: alcohol withdrawal sx Laboratory Last Values WBC 3.9 K/mm3 (4.0-10.0) L 11/10/18 07:00 RBC 4.09 M/mm3 (4.00-5.60) 11/10/18 07:00 Hgb 12.5 GM/dL (11.7-16.9) 11/10/18 07:00 Hct 37.3 % (35.4-49) 11/10/18 07:00 MCV 91.4 fl (80-96) 11/10/18 07:00 MCH 30.6 pg (25.7-33.7) 11/10/18 07:00 MCHC 33.4 g/dl (32.0-35.9) 11/10/18 07:00 RDW 14.4 % (11.9-15.9) 11/10/18 07:00 Plt Count 216 K/MM3 (134-434) 11/10/18 07:00 MPV 8.3 fl (7.5-11.1) 11/10/18 07:00 Sodium 142 mmol/L (136-145) 11/10/18 07:00 Potassium 4.1 mmol/L (3.5-5.1) 11/10/18 07:00 Chloride 107 mmol/L (98-107) 11/10/18 07:00 Carbon Dioxide 31 mmol/L (21-32) 11/10/18 07:00 Anion Gap 5 MMOL/L (8-16) L 11/10/18 07:00 BUN 12 mg/dL (7-18) 11/10/18 07:00 Creatinine 0.9 mg/dL (0.55-1.3) 11/10/18 07:00 Creat Clearance w eGFR 86.67 (>60) 11/10/18 07:00 POC Glucometer 92 UNITS (80-120) 11/11/18 18:00 Random Glucose 83 mg/dL (74-106) 11/10/18 07:00 Calcium 8.7 mg/dL (8.5-10.1) 11/10/18 07:00 Total Bilirubin 0.4 mg/dL (0.2-1) 11/10/18 07:00 AST 20 U/L (15-37) 11/10/18 07:00 ALT 21 U/L (13-61) 11/10/18 07:00 Alkaline Phosphatase 85 U/L (45-117) 11/10/18 07:00 Total Protein 5.9 g/dl (6.4-8.2) L 11/10/18 07:00 Albumin 3.1 g/dl (3.4-5.0) L 11/10/18 07:00 RPR Titer Nonreactive (NONREACTIVE) 11/10/18 07:00 lab noted - Treatment Hospital Course: Detox Protocol Followed, Detoxed Safely, Responded well, Discharged Condition Good, Rehab Referral Accepted Patient has Accepted a Re[facility] Referral to: [facility] - Medication Discharge Medications: Ambulatory Orders Quetiapine Fumarate [Seroquel -] 200 mg PO HS #30 tablet 06/02/18 Albuterol Sulfate Inhaler - [Ventolin HFA Inhaler -] 1 - 2 inh PO Q4H PRN #1 inhaler 11/12/18 Sulfamethoxazole/Trimethoprim [Bactrim DS -] 1 tab PO BID 7 Days #14 tablet 11/26 - Diagnosis (1) Alcohol dependence with withdrawal, uncomplicated Status: Acute (2) Asthma Status: Chronic Qualifiers: Asthma severity: mild Asthma persistence: intermittent Asthma complication type: uncomplicated Qualified Code(s): J45.20 - Mild intermittent asthma, uncomplicated (3) Nicotine dependence Status: Acute Qualifiers: Nicotine product type: cigarettes Substance use status: in withdrawal Qualified Code(s): F17.213 - Nicotine dependence, cigarettes, with withdrawal (4) PPD positive Status: Resolved (5) Substance induced mood disorder Status: Suspected - AMA Did Patient Leave Against Medical Advice: No
== END 2018-11-13 12:58 | disposition other institution (70) | DRG 773 ==
LOC: YASAS 16:10 → Y3N 20:51
PROVIDERS: ADMIT Surgery; ATTEND Surgery
PROC: HZ2ZZZZ Detoxification Services for Substance Abuse Treatment (ICD-10-PCS; principal; 2018-11-09)
DX: F10.230 Alcohol dependence with withdrawal, uncomplicated (principal); F11.20 Opioid dependence, uncomplicated; F14.20 Cocaine dependence, uncomplicated; F17.213 Nicotine dependence, cigarettes, with withdrawal; F19.24 Other psychoactive substance dependence with psychoactive substance-induced mood disorder; F25.9 Schizoaffective disorder, unspecified; J45.20 Mild intermittent asthma, uncomplicated; R76.11 Nonspecific reaction to tuberculin skin test without active tuberculosis; Z86.59 Personal history of other mental and behavioral disorders
CPT/HCPCS: 36415; 80053; 82962; 85027; 86593

== ENCOUNTER 2018-11-11 19:26 | Emergency (ER) | payer OTHER ==
[2018-11-11 19:38] VITALS: BP 126/62; TEMP 98; BMI 19.5
--- NOTE | 2018-11-11 21:59 | PDOC ---
History of Present Illness - General Chief Complaint: Weakness Stated Complaint: WEAKNESS Time Seen by Provider: 11/11/18 20:12 History Source: Patient Exam Limitations: No Limitations - History of Present Illness Initial Comments: 11/11/18 20:54 58 yo male pmh of alcohol and heroin dependence presents to ED from [facility] for lethargy. Pt on librium and methadone program. Pt awake, alert, NAD, ambulating without difficulty. Pt states he feels at baseline, has no new complaints but does state he had a fall months ago and has had weakness bilateral upper ext. Denies hallucinations, shaking, F/V/N/V, abdominal pain, CP , SOB. Past History - Past Medical History Allergies/Adverse Reactions: Allergies Allergy/AdvReac Type Severity Reaction Status Date / Time No Known Allergies Allergy Verified 10/27/18 11:27 Home Medications: Ambulatory Orders Quetiapine Fumarate [Seroquel -] 200 mg PO HS #30 tablet 06/02/18 Albuterol Sulfate Inhaler - [Ventolin Hfa Inhaler -] 1 - 2 inh PO Q4H PRN #1 inhaler 10/30/18 Sulfamethoxazole/Trimethoprim [Bactrim Ds -] 1 tab PO BID 7 Days #14 tablet Anemia: No Asthma: Yes (Albuterol) Cancer: No Cardiac Disorders: No COPD: No CHF: No Dementia: No Diabetes: No GI Disorders: No Disorders: No HTN: No Hypercholesterolemia: No Kidney Stones: No Seizures: Yes (Last 2017) Thyroid Disease: No - Surgical History Abdominal Surgery: No Appendectomy: No Cardiac Surgery: No Cholecystectomy: No Lung Surgery: No Neurologic Surgery: No Orthopedic Surgery: No - Reproductive History Testicular Surgery: No - Immunization History Immunization Up to Date: No - Suicide/Smoking/Psychosocial Hx Smoking History: Current every day smoker Have you smoked in the past 12 months: Yes Number of Cigarettes Smoked Daily: 24 Information on smoking cessation initiated: No 'Breaking Loose' booklet given: 11/09/18 Hx Alcohol Use: Yes (12 beers per day) Drug/Substance Use Hx: No Substance Use Type: Alcohol, Cocaine, Prescribed Hx Substance Use Treatment: Yes ([facility] 10/27/2018 - 10/30/2018) *Physical Exam - Vital Signs Last Vital Signs Temp Pulse Resp BP Pulse Ox 98.0 F 59 L 18 126/62 97 11/11/18 19:34 11/11/18 19:34 11/11/18 19:34 11/11/18 19:34 11/11/18 19:34 *DC/Admit/Observation/Transfer Diagnosis at time of Disposition: Weakness of both upper extremities - Referrals - Patient Instructions - Post Discharge Activity
[2018-11-12 00:47] VITALS: PULSE 72
--- NOTE | 2018-11-12 01:53 | PDOC ---
Documentation entered by Haylie Navarrete SCRIBE, acting as scribe for Barbara Chavarria MD. Barbara Chavarria MD: This documentation has been prepared by the Landon sun Nirvannie, SCRIBE, under my direction and personally reviewed by me in its entirety. I confirm that the documentation accurately reflects all work, treatment, procedures, and medical decision making performed by me. Attending Attestation - Resident Resident Name: Vic Bettencourt - ED Attending Attestation I have performed the following: I have examined & evaluated the patient, The case was reviewed & discussed with the resident, I agree w/resident's findings & plan - HPI HPI: 11/11/18 21:24 The patient is a 58 year old male, with a significant past medical history of bipolar disorder, schizoaffective disorder,and polysubstance abuse (alcohol/ cocaine), who presents to the emergency department via EMS from [facility] after an episode of difficulty to arise. While in the ED, patients only complaint is his weight loss and blt UE weakness (onset >2 months ago). He denies any recent trauma. He denies any recent fevers, chills, headache or dizziness. He denies any recent nausea, vomit, diarrhea or constipation. He denies any recent chest pain or shortness of breath. He denies any recent dysuria, frequency, urgency or hematuria. Allergies: NKDA Social History: Polysubstance abuse (alcohol/cocaine), smoker. - Physicial Exam PE: 11/11/18 21:24 GENERAL: Awake, alert, and fully oriented, in no acute distress HEAD: ? fungal infection to the head. EYES: +Pinpoint pupils. Sclera anicteric, conjunctiva clear ENT: Auricles normal inspection, hearing grossly normal, nares patent, oropharynx clear without exudates. Moist mucosa NECK: Normal ROM, supple, no lymphadenopathy, JVD, or masses LUNGS: Breath sounds equal, clear to auscultation bilaterally. No wheezes, and no crackles HEART: Regular rate and rhythm, normal S1 and S2, no murmurs, rubs or gallops ABDOMEN: Soft, nontender, normoactive bowel sounds. No guarding, no rebound. No masses EXTREMITIES: No edema. NEUROLOGICAL: +Blt UE weakness 4/5. Cranial nerves II through XII grossly intact. Normal speech SKIN: Warm, Dry, normal turgor, no rashes or lesions noted. - Medical Decision Making 11/11/18 21:19 Pt is worried because he is losing weight and his family has colon ca and throat ca. I warned him that he needs to stop smoking and needs to follow outpatient with GI for endoscopy. Pt has no reported GI bleed, and his labs are normal from yesterday. 11/11/18 21:23 HB/HCT normal; MCV normal; chem normal. Pt has low albumin. Pt will have CT imaging of his c spine to make sure that he has no neuro cause of his bilat arm weakness. 11/11/18 22:45 EXAM: CERVICAL SPINE CT W/O CONTR HISTORY: 58-year-old male evaluated for spinal canal stenosis. COMPARISON: None. FINDINGS: There is no prevertebral soft tissue swelling. There is no evidence of acute fracture or subluxation. There are no destructive lesions. Mild straightening of the normal cervical lordosis. Moderate to severe multilevel degenerative disc disease and degenerative joint disease of the uncovertebral joints and facets throughout the cervical spine. Moderate multilevel spinal canal stenosis at the C2-3 C3-4 and C4-5 levels results in moderate spinal cord flattening and deformity may be associated with cord compression and cord edema or myelomalacia. Mild to moderate multilevel spinal canal stenosis at the C5-T1 levels. Moderate to severe multilevel neural foraminal narrowing bilaterally throughout the middle and lower cervical levels and upper thoracic levels. Biapical pleural parenchymal scarring. Centrilobular emphysema. Small amount of dependent mucus or debris in the upper thoracic trachea on axial image 60. Heterogeneous density in the thyroid. IMPRESSION: No evidence of acute fracture or subluxation. Mild straightening of the normal cervical lordosis. Mild to moderate multilevel spinal canal stenosis at the C5-T1 levels. Moderate to severe multilevel neural foraminal narrowing bilaterally throughout the middle and lower cervical levels and upper thoracic levels. Moderate to severe multilevel degenerative disc disease and degenerative joint disease of the uncovertebral joints and facets throughout the cervical spine. Moderate multilevel spinal canal stenosis at the C2-3 C3-4 and C4-5 levels results in moderate spinal cord flattening and deformity may be associated with cord compression and cord edema or myelomalacia. If clinically indicated follow-up outpatient MRI cervical spine may be needed. Biapical pleural parenchymal scarring. Centrilobular emphysema. Small amount of dependent mucus or debris in the upper thoracic trachea. Heterogeneous density in the thyroid. This CT exam was performed using one or more of the following dose reduction techniques: automated exposure control, adjustment of the mA and/or kV according to patient size, use of iterative reconstruction technique Read by: Rock Angel MD 11/11/18 23:12 Pt is stable to go to [facility] by ambulance.
== END 2018-11-12 00:46 | disposition home or self-care (01) ==
LOC: JER 19:26
DX: R29.898 Other symptoms and signs involving the musculoskeletal system (principal); F10.10 Alcohol abuse, uncomplicated; F14.10 Cocaine abuse, uncomplicated; F17.210 Nicotine dependence, cigarettes, uncomplicated; Z87.09 Personal history of other diseases of the respiratory system
CPT/HCPCS: 72125-TC; 82962; 99281-25

== ENCOUNTER 2018-11-13 12:59 | Inpatient (IN) | payer OTHER ==
[2018-11-13] MEDS ORDERED: guaiFENesin 200 MG/10 ML 10 ML UNIT-DOSE CUPS PO PRN (13:18)
[2018-11-13] MEDS ORDERED: LOPERAMIDE HCL 2 MG CAPSULE PO PRN (13:18)
[2018-11-13] MEDS ORDERED: ACETAMINOPHEN 325 MG TABLET (FP) PO PRN (13:18)
[2018-11-13] MEDS ORDERED: NICOTINE POLACRILEX 2 MG GUM BC PRN (13:18)
[2018-11-13] MEDS ORDERED: MAGNESIUM HYDROX 2400MG/30ML ORAL SUSPENSION 30 ML CUP PO PRN (13:18)
[2018-11-13] MEDS ORDERED: MENTHOL/PHENOL 1 EACH UD MM PRN (13:18)
[2018-11-13] MEDS ORDERED: MAGNESIUM CITRATE 300 ML BOTTLE PO PRN (13:18)
[2018-11-13] MEDS ORDERED: NICOTINE 14 MG/24 HOURS TOPICAL PATCH TD PRN (13:18)
[2018-11-13] MEDS ORDERED: MAG HYDROX/AL HYDROX/SIMETH 30 ML UNIT-DOSE CUP PO PRN (13:18)
[2018-11-13] MEDS ORDERED: P-EPHED 60MG/TRIPROLIDI 2.5MG TABLET PO PRN (13:18)
--- NOTE | 2018-11-13 13:18 | HP ---
[facility] Rehab Assess/Revision - Admission History Admitted to Rehab from: [facility] Date of Admission to Rehab: 11/13/18 - Findings Detox History & Physical reviewed: Yes Concur with findings: Yes Comments/Additional Findings: transferred from detox to rehab admission as per protocol Inpatient Rehab Admission - Rehab Decision to Admit Inpatient rehab admission?: Yes - Initial Determination Are CD services needed?: Yes Free of communicable disease: Yes Not in need of hospitalization: Yes - Rehab Admission Criteria Previous failed treatment: Yes Poor recovery environment: Yes Comorbidities: Yes Lacks judgement: No Patient is meeting Inpatient Rehab admission criteria:: Yes
[2018-11-13] MEDS: THIAMINE HCL 100 MG TABLET (FP) PO SCH (21:09)
[2018-11-13] MEDS ORDERED: SULFAMETHOXAZOLE/TRIMETHOPRIM 800MG/160MG D.S. TABLET PO SCH (22:00)
[2018-11-14] MEDS ORDERED: METHADONE HCL 40 MG DISPERSABLE TABLET ONE (04:01)
[2018-11-14] MEDS ORDERED: METHADONE HCL 10 MG TABLET ONE (04:01)
[2018-11-14] MEDS: METHADONE 40 MG, METHADONE 10 MG PO SCH (05:58)
[2018-11-14] MEDS ORDERED: METHADONE HCL 10 MG TABLET PO SCH (06:00)
[2018-11-14] MEDS: PRENATAL VITAMINS W/ FOLIC ACID TABLET (FP) PO SCH (09:35)
[2018-11-14] MEDS: IBUPROFEN 400 MG TABLET (FP) PO PRN ×2 (09:35→19:29)
[2018-11-14] MEDS ORDERED: FLU VACCINE QUAD 60 MCG/0.5 ML (MDV 18-19) IM ONE (12:00)
--- NOTE | 2018-11-14 12:08 | PN ---
[facility] Progress Note Note: Patient with itchy scalp; PE: patchy hair loss with areas of depigmentation and scaling. Imp: Tinea Plan: selenium shampoo and lotion.
[2018-11-14 12:48] LABS: URINE APPEARANCE CLEAR; URINE BILIRUBIN NEGATIVE (NEGATIVE); URINE COLOR YELLOW; URINE GLUCOSE (UA) NEGATIVE (NEGATIVE); URINE KETONE NEGATIVE (NEGATIVE); URINE LEUK ESTERASE NEGATIVE (NEGATIVE); URINE NITRITE NEGATIVE (NEGATIVE); URINE PROTEIN TRACE (NEGATIVE); URINE UROBILINOGEN 0.2 mg/dL (0.2-1.0)
[2018-11-14] MEDS ORDERED: PT OWN MED DRAWER 7, Y5N ONE (19:29)
[2018-11-14] MEDS: ALBUTEROL SO4 8 GM HFA INHALER IH PRN (19:30)
[2018-11-14] MEDS: THIAMINE HCL 100 MG TABLET (FP) PO SCH (21:39)
[2018-11-15] MEDS ORDERED: METHADONE HCL 10 MG TABLET ONE (04:04)
[2018-11-15] MEDS ORDERED: METHADONE HCL 40 MG DISPERSABLE TABLET ONE (04:04)
[2018-11-15] MEDS: METHADONE 40 MG, METHADONE 10 MG PO SCH (05:47)
[2018-11-15] MEDS: ALBUTEROL SO4 8 GM HFA INHALER IH PRN ×2 (06:59→10:16)
--- NOTE | 2018-11-15 07:59 | PN ---
[facility] Progress Note Note: accidentally hit back of head over the paper towel dispenser ,reported to nurse, no witness head injury alert,no loss of conscious no obvious injury noted no complaint no neck pain ambulation with cane impression head injury non witness vital sign bp 116/75,p65,r29,t97.3 patient stated he did not fall treatment initiate head injury fall protocol 1 patient refused the treatment,signed refusal form,closed monitoring for head injury non witness
[2018-11-15] MEDS ORDERED: SELENIUM SULFIDE 2.25% 180 ML SHAMPOO TP SCH (10:00)
[2018-11-15] MEDS: SELENIUM SULFIDE 2.5% LOTION 4 OZ. TP SCH (10:15)
[2018-11-15] MEDS: PRENATAL VITAMINS W/ FOLIC ACID TABLET (FP) PO SCH (10:15)
[2018-11-15] MEDS: IBUPROFEN 400 MG TABLET (FP) PO PRN ×2 (11:04→21:08)
[2018-11-15] MEDS: THIAMINE HCL 100 MG TABLET (FP) PO SCH (21:07)
[2018-11-16] MEDS ORDERED: METHADONE HCL 10 MG TABLET ONE (03:41)
[2018-11-16] MEDS ORDERED: METHADONE HCL 40 MG DISPERSABLE TABLET ONE (03:42)
[2018-11-16] MEDS: METHADONE 40 MG, METHADONE 10 MG PO SCH (06:10)
[2018-11-16] MEDS: SELENIUM SULFIDE 2.5% LOTION 4 OZ. TP SCH (09:23)
[2018-11-16] MEDS: PRENATAL VITAMINS W/ FOLIC ACID TABLET (FP) PO SCH (09:23)
[2018-11-16] MEDS: ALBUTEROL SO4 8 GM HFA INHALER IH PRN (09:25)
[2018-11-16] MEDS: IBUPROFEN 400 MG TABLET (FP) PO PRN ×2 (11:28→21:03)
[2018-11-16] MEDS: THIAMINE HCL 100 MG TABLET (FP) PO SCH (21:02)
[2018-11-16] MEDS: MELATONIN 5 MG TABLETS PO PRN (21:03)
[2018-11-17] MEDS ORDERED: METHADONE HCL 40 MG DISPERSABLE TABLET ONE (03:31)
[2018-11-17] MEDS ORDERED: METHADONE HCL 10 MG TABLET ONE (03:31)
[2018-11-17] MEDS: METHADONE 40 MG, METHADONE 10 MG PO SCH (06:18)
[2018-11-17] MEDS: SELENIUM SULFIDE 2.5% LOTION 4 OZ. TP SCH (10:04)
[2018-11-17] MEDS: PRENATAL VITAMINS W/ FOLIC ACID TABLET (FP) PO SCH (10:04)
[2018-11-17] MEDS: IBUPROFEN 400 MG TABLET (FP) PO PRN ×2 (10:05→21:37)
[2018-11-17] MEDS: THIAMINE HCL 100 MG TABLET (FP) PO SCH (21:37)
[2018-11-18] MEDS ORDERED: METHADONE HCL 40 MG DISPERSABLE TABLET ONE (05:13)
[2018-11-18] MEDS ORDERED: METHADONE HCL 10 MG TABLET ONE (05:13)
[2018-11-18] MEDS: METHADONE 40 MG, METHADONE 10 MG PO SCH (06:15)
[2018-11-18] MEDS: PRENATAL VITAMINS W/ FOLIC ACID TABLET (FP) PO SCH (09:45)
[2018-11-18] MEDS: IBUPROFEN 400 MG TABLET (FP) PO PRN ×2 (09:46→21:04)
[2018-11-18] MEDS: SELENIUM SULFIDE 2.5% LOTION 4 OZ. TP SCH (09:47)
[2018-11-18] MEDS: MELATONIN 5 MG TABLETS PO PRN (21:04)
[2018-11-18] MEDS: THIAMINE HCL 100 MG TABLET (FP) PO SCH (21:04)
[2018-11-19] MEDS ORDERED: METHADONE HCL 10 MG TABLET ONE (05:14)
[2018-11-19] MEDS ORDERED: METHADONE HCL 40 MG DISPERSABLE TABLET ONE (05:14)
[2018-11-19] MEDS: METHADONE 40 MG, METHADONE 10 MG PO SCH (06:03)
[2018-11-19] MEDS: PRENATAL VITAMINS W/ FOLIC ACID TABLET (FP) PO SCH (10:02)
[2018-11-19] MEDS: ALBUTEROL SO4 8 GM HFA INHALER IH PRN (10:03)
[2018-11-19] MEDS: SELENIUM SULFIDE 2.5% LOTION 4 OZ. TP SCH (10:03)
[2018-11-19] MEDS: IBUPROFEN 400 MG TABLET (FP) PO PRN ×2 (11:47→19:27)
[2018-11-19] MEDS: THIAMINE HCL 100 MG TABLET (FP) PO SCH (21:28)
[2018-11-19] MEDS: MELATONIN 5 MG TABLETS PO PRN (21:28)
[2018-11-20] MEDS ORDERED: METHADONE HCL 10 MG TABLET ONE (02:45)
[2018-11-20] MEDS ORDERED: METHADONE HCL 40 MG DISPERSABLE TABLET ONE (02:46)
[2018-11-20] MEDS: METHADONE 40 MG, METHADONE 10 MG PO SCH (05:59)
[2018-11-20] MEDS: PRENATAL VITAMINS W/ FOLIC ACID TABLET (FP) PO SCH (10:02)
[2018-11-20] MEDS: SELENIUM SULFIDE 2.5% LOTION 4 OZ. TP SCH (10:02)
[2018-11-20] MEDS: IBUPROFEN 400 MG TABLET (FP) PO PRN ×2 (13:30→21:01)
[2018-11-20] MEDS: MELATONIN 5 MG TABLETS PO PRN (21:01)
[2018-11-20] MEDS: THIAMINE HCL 100 MG TABLET (FP) PO SCH (21:01)
[2018-11-21] MEDS ORDERED: METHADONE HCL 10 MG TABLET ONE (06:04)
[2018-11-21] MEDS ORDERED: METHADONE HCL 40 MG DISPERSABLE TABLET ONE (06:04)
[2018-11-21] MEDS: METHADONE 40 MG, METHADONE 10 MG PO SCH (06:07)
[2018-11-21] MEDS: PRENATAL VITAMINS W/ FOLIC ACID TABLET (FP) PO SCH (10:08)
[2018-11-21] MEDS: SELENIUM SULFIDE 2.5% LOTION 4 OZ. TP SCH (10:09)
[2018-11-21] MEDS: IBUPROFEN 400 MG TABLET (FP) PO PRN (15:14)
[2018-11-21] MEDS: THIAMINE HCL 100 MG TABLET (FP) PO SCH (21:52)
[2018-11-21] MEDS: MELATONIN 5 MG TABLETS PO PRN (21:52)
[2018-11-22] MEDS ORDERED: METHADONE HCL 40 MG DISPERSABLE TABLET ONE (04:52)
[2018-11-22] MEDS ORDERED: METHADONE HCL 10 MG TABLET ONE (04:52)
[2018-11-22] MEDS: METHADONE 40 MG, METHADONE 10 MG PO SCH (06:15)
[2018-11-22] MEDS ORDERED: PT OWN MED DRAWER 7, Y5N ONE (09:06)
[2018-11-22] MEDS: PRENATAL VITAMINS W/ FOLIC ACID TABLET (FP) PO SCH (10:57)
[2018-11-22] MEDS: IBUPROFEN 400 MG TABLET (FP) PO PRN ×2 (10:58→21:03)
[2018-11-22] MEDS: THIAMINE HCL 100 MG TABLET (FP) PO SCH (21:03)
[2018-11-22] MEDS: MELATONIN 5 MG TABLETS PO PRN (21:03)
[2018-11-23] MEDS ORDERED: METHADONE HCL 10 MG TABLET ONE (04:38)
[2018-11-23] MEDS ORDERED: METHADONE HCL 40 MG DISPERSABLE TABLET ONE (04:38)
[2018-11-23] MEDS: METHADONE 40 MG, METHADONE 10 MG PO SCH (05:49)
[2018-11-23] MEDS: PRENATAL VITAMINS W/ FOLIC ACID TABLET (FP) PO SCH (10:22)
[2018-11-23] MEDS: IBUPROFEN 400 MG TABLET (FP) PO PRN (10:22)
[2018-11-23] MEDS: ALBUTEROL SO4 8 GM HFA INHALER IH PRN (10:23)
[2018-11-23] MEDS: THIAMINE HCL 100 MG TABLET (FP) PO SCH (21:41)
[2018-11-23] MEDS: MELATONIN 5 MG TABLETS PO PRN (21:41)
[2018-11-24] MEDS ORDERED: METHADONE HCL 40 MG DISPERSABLE TABLET ONE (03:56)
[2018-11-24] MEDS ORDERED: METHADONE HCL 10 MG TABLET ONE (03:56)
[2018-11-24] MEDS: METHADONE 40 MG, METHADONE 10 MG PO SCH (06:12)
[2018-11-24] MEDS: IBUPROFEN 400 MG TABLET (FP) PO PRN ×2 (10:01→21:01)
[2018-11-24] MEDS: PRENATAL VITAMINS W/ FOLIC ACID TABLET (FP) PO SCH (10:01)
[2018-11-24] MEDS: ALBUTEROL SO4 8 GM HFA INHALER IH PRN (10:02)
[2018-11-24] MEDS: THIAMINE HCL 100 MG TABLET (FP) PO SCH (21:01)
[2018-11-24] MEDS: MELATONIN 5 MG TABLETS PO PRN (21:01)
[2018-11-25] MEDS ORDERED: METHADONE HCL 10 MG TABLET ONE (02:52)
[2018-11-25] MEDS ORDERED: METHADONE HCL 40 MG DISPERSABLE TABLET ONE (02:52)
[2018-11-25] MEDS: METHADONE 40 MG, METHADONE 10 MG PO SCH (06:19)
[2018-11-25] MEDS: IBUPROFEN 400 MG TABLET (FP) PO PRN (08:50)
[2018-11-25] MEDS: PRENATAL VITAMINS W/ FOLIC ACID TABLET (FP) PO SCH (09:13)
[2018-11-26] MEDS: THIAMINE HCL 100 MG TABLET (FP) PO SCH ×2 (00:30→21:01)
[2018-11-26] MEDS ORDERED: METHADONE HCL 40 MG DISPERSABLE TABLET ONE (03:19)
[2018-11-26] MEDS ORDERED: METHADONE HCL 10 MG TABLET ONE (03:19)
[2018-11-26] MEDS: METHADONE 40 MG, METHADONE 10 MG PO SCH (06:05)
[2018-11-26] MEDS: PRENATAL VITAMINS W/ FOLIC ACID TABLET (FP) PO SCH (09:45)
[2018-11-26] MEDS: IBUPROFEN 400 MG TABLET (FP) PO PRN ×2 (09:45→21:02)
[2018-11-26] MEDS: ALBUTEROL SO4 8 GM HFA INHALER IH PRN (12:51)
[2018-11-26] MEDS: MELATONIN 5 MG TABLETS PO PRN (21:01)
[2018-11-27] MEDS ORDERED: METHADONE HCL 10 MG TABLET ONE (03:58)
[2018-11-27] MEDS ORDERED: METHADONE HCL 40 MG DISPERSABLE TABLET ONE (03:58)
[2018-11-27] MEDS: METHADONE 40 MG, METHADONE 10 MG PO SCH (06:06)
[2018-11-27 07:16] VITALS: BP 113/73; PULSE 55; TEMP 99.5
[2018-11-27] MEDS: IBUPROFEN 400 MG TABLET (FP) PO PRN (08:30)
[2018-11-27] MEDS ORDERED: PT OWN MED DRAWER 7, Y5N ONE (08:33)
--- NOTE | 2018-11-27 12:46 | PN ---
[facility] Progress Note Note: REHAB DISCHARGE NOTE: PATIENT D/C FROM REHAB TODAY AND STATES HE ACCOMPLISHED ALL REHAB GOALS. PATIENT 'S AFTERCARE SCHEDULED AT [facility] FOR 11/28/18 AT 8:30AM. PATIENT ENCOURAGED TO CONTINUE WITH OUTPATIENT TREATMENT AND GROUP MEETINGS TO PREVENT RELAPSE. PATIENT ALSO STRONGLY ADVISED TO FOLLOW UP WITH PCP TO CONTINUE MEDICAL MANAGEMENT. PATIENT GIVEN D/C INSTRUCTIONS BY NURSING STAFF. Vital Signs Temperature 99.5 F 11/27/18 07:16 Pulse Rate 55 L 11/27/18 07:16 Respiratory Rate 16 11/27/18 07:16 Blood Pressure 113/73 11/27/18 07:16 O2 Sat by Pulse Oximetry (%) Laboratory Tests 11/14/18 11/14/18 07:00 07:40 Urine Color Yellow Urine Appearance Clear Urine pH 8.0 D Ur Specific [place] 1.011 Urine Protein Trace Urine Glucose (UA) Negative Urine Ketones Negative Urine Blood Negative Urine Nitrite Negative Urine Bilirubin Negative Urine Urobilinogen 0.2 Ur Leukocyte Esterase Negative HIV 1&2 Antibody Screen Negative HIV P24 Antigen Negative Home Medications Medication Instructions Recorded Quetiapine Fumarate [Seroquel -] 200 mg PO HS #30 tablet 06/02/18 Sulfamethoxazole/Trimethoprim 1 tab PO BID 7 Days #14 tablet 11/12/18 [Bactrim DS -] Albuterol Sulfate Inhaler - 1 - 2 inh PO Q4H PRN #1 inhaler 11/27/18 [Ventolin HFA Inhaler -]
== END 2018-11-27 09:03 | disposition home or self-care (01) | DRG 772 ==
LOC: YASAS 12:59 → Y3W 13:01
PROVIDERS: ADMIT Neuromusculoskeletal Medicine & OMM; ATTEND Neuromusculoskeletal Medicine & OMM
PROC: HZ42ZZZ Group Counseling for Substance Abuse Treatment, Cognitive-Behavioral (ICD-10-PCS; principal; 2018-11-13)
DX: F10.20 Alcohol dependence, uncomplicated (principal); F11.20 Opioid dependence, uncomplicated; F12.20 Cannabis dependence, uncomplicated; F17.210 Nicotine dependence, cigarettes, uncomplicated; J45.20 Mild intermittent asthma, uncomplicated; R26.89 Other abnormalities of gait and mobility; Z99.89 Dependence on other enabling machines and devices; S09.8XXA Other specified injuries of head, initial encounter; W22.8XXA Striking against or struck by other objects, initial encounter; Y93.89 Activity, other specified; Y92.238 Other place in hospital as the place of occurrence of the external cause; Y99.8 Other external cause status
CPT/HCPCS: 36415; 81003; 87389; 90688; G0008